=== PATIENT | female | born 1965 | race Caucasian/White ===

== ENCOUNTER 2016-10-05 18:49 | Emergency (ER) | payer MEDICAID ==
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
[2016-10-05] MEDS ORDERED: Sodium Chloride 0.9% 10 ML Syringe FLUSH PRN (19:41)
[2016-10-05] MEDS ORDERED: Sodium Chloride 0.9% 2.5 ML Syringe FLUSH PRN (19:41)
[2016-10-05] MEDS ORDERED: Sodium Chloride 0.9% 1,000 ML IV SCH (19:45)
[2016-10-05] MEDS ORDERED: Iopamidol 755 Mg/ML 100 ML Bottle IVPUSH STA (21:17)
[2016-10-05] MEDS ORDERED: Ondansetron 4 MG/2 ML SDV IVPUSH ONE (21:41)
[2016-10-05] MEDS ORDERED: HYDROmorphone 2 MG/ML Syringe IVPUSH ONE (21:42)
[2016-10-06 04:19] VITALS: BP 137/74
--- NOTE | 2016-10-06 19:49 | CT ---
EXAM DATE: 10/05/16 PATIENT'S AGE: 51 Patient: BARNEY GUIDRY Facility: [place], [place] Site . Site : [id number] Study: CT Abdomen/Pelvis [id number]/19/2017 9:19:07 PM Ordering Physician: Yosef Esteban Final Report: TECHNIQUE: IV contrast-enhanced CT of the abdomen and pelvis. INDICATION: Abdominal pain, history of Crohn`s disease. FINDINGS: The liver, spleen, pancreas, kidneys and adrenal glands appear normal. Gallbladder has been removed. Hysterectomy. Bowel appears normal without evidence for obstruction or inflammation. No free air, free fluid, or adenopathy. IMPRESSION: No cause for abdominal pain identified. Please note that all CT scans performed at this facility use dose modulation, iterative reconstruction, and/or weight based dosing when appropriate to reduce radiation dose to as low as reasonably achievable. Dictated by Nicolas Santana MD @ 10/05/2016 9:23:36 PM Dictated by: Nicolas Santana MD @ 10/05/2016 21:24:20 (Electronic Signature) Report Signed by Proxy and Original Signed Document filed in the Medical Record. [facility]
== END 2016-10-05 22:51 | disposition home or self-care (01) ==
LOC: MW.ED 18:49
DX: K50.90 Crohn's disease, unspecified, without complications (principal); M19.90 Unspecified osteoarthritis, unspecified site; F41.9 Anxiety disorder, unspecified; I10 Essential (primary) hypertension; F32.9 Major depressive disorder, single episode, unspecified; F17.210 Nicotine dependence, cigarettes, uncomplicated; Z90.49 Acquired absence of other specified parts of digestive tract; Z88.5 Allergy status to narcotic agent; Z79.899 Other long term (current) drug therapy
CPT/HCPCS: 36415; 74177; 80053; 81001; 83690; 85025; 96361; 96374; 96375; 99285; J1170; J2405; J7040; Q9967; 99284

== ENCOUNTER 2016-11-24 10:10 | Emergency (ER) | payer MEDICAID ==
[2016-11-24] MEDS ORDERED: Sodium Chloride 0.9% 2.5 ML Syringe FLUSH PRN (10:35)
[2016-11-24] MEDS ORDERED: Sodium Chloride 0.9% 1,000 ML IV ONE (10:35)
[2016-11-24] MEDS ORDERED: Sodium Chloride 0.9% 10 ML Syringe FLUSH PRN (10:35)
[2016-11-24] MEDS ORDERED: Dicyclomine 10 MG Cap PO ONE (10:35)
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
[2016-11-24] MEDS ORDERED: HYDROmorphone 2 MG/ML Syringe IVPUSH ONE (10:36)
[2016-11-24] MEDS ORDERED: Ondansetron 4 MG/2 ML SDV IVPUSH ONE (10:37)
[2016-11-24] MEDS ORDERED: HYDROmorphone 1 MG/ML Syringe IVPUSH ONE (11:49)
[2016-11-24 11:54] LABS: CHLORIDE,CL 110 mmol/L (98-110); SODIUM,NA 139 mmol/L (136-146)
[2016-11-24 17:37] VITALS: BP 178/92
== END 2016-11-24 12:33 | disposition home or self-care (01) ==
LOC: MW.ED 10:10
DX: K50.90 Crohn's disease, unspecified, without complications (principal); I10 Essential (primary) hypertension; F31.9 Bipolar disorder, unspecified; F32.9 Major depressive disorder, single episode, unspecified; F41.9 Anxiety disorder, unspecified; F17.210 Nicotine dependence, cigarettes, uncomplicated; Z88.5 Allergy status to narcotic agent; Z79.899 Other long term (current) drug therapy; Z90.49 Acquired absence of other specified parts of digestive tract
CPT/HCPCS: 36415; 80053; 82150; 83605; 83690; 85025; 96361; 96374; 96375; 96376; 99284; A9270; J1170; J2405; J7040

== ENCOUNTER 2016-11-30 18:21 | Emergency (ER) | payer MEDICAID ==
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
[2016-11-30] MEDS ORDERED: HYDROmorphone 1 MG/ML Syringe IVPUSH PRN (18:37)
[2016-11-30] MEDS ORDERED: Sodium Chloride 0.9% 2.5 ML Syringe FLUSH PRN (18:37)
[2016-11-30] MEDS ORDERED: Sodium Chloride 0.9% 10 ML Syringe FLUSH PRN (18:37)
[2016-11-30] MEDS ORDERED: Ondansetron 4 MG/2 ML SDV IVPUSH ONE (18:37)
[2016-11-30] MEDS ORDERED: Sodium Chloride 0.9% 1,000 ML IV ONE (18:37)
[2016-11-30 19:17] LABS: CHLORIDE,CL 116 mmol/L (98-110); SODIUM,NA 141 mmol/L (136-146)
[2016-11-30] MEDS ORDERED: HYDROmorphone 2 MG/ML Syringe IVPUSH ONE (19:47)
[2016-11-30] MEDS ORDERED: Dicyclomine 10 MG Cap PO ONE (19:47)
[2016-11-30 20:44] VITALS: BP 148/78
== END 2016-11-30 20:35 | disposition home or self-care (01) ==
LOC: MW.ED 18:21
DX: R10.84 Generalized abdominal pain (principal); F31.9 Bipolar disorder, unspecified; I10 Essential (primary) hypertension; M19.90 Unspecified osteoarthritis, unspecified site; F17.210 Nicotine dependence, cigarettes, uncomplicated; Z88.6 Allergy status to analgesic agent; Z88.8 Allergy status to other drugs, medicaments and biological substances; Z79.899 Other long term (current) drug therapy; Z90.49 Acquired absence of other specified parts of digestive tract; Z98.890 Other specified postprocedural states; Z87.19 Personal history of other diseases of the digestive system; Z88.5 Allergy status to narcotic agent
CPT/HCPCS: 36415; 80053; 83605; 83690; 85025; 96361; 96374; 96375; 96376; 99284; A9270; J1170; J2405; J7040

== ENCOUNTER 2016-12-03 17:05 | Emergency (ER) | payer MEDICAID ==
[2016-12-03] MEDS ORDERED: Sodium Chloride 0.9% 2.5 ML Syringe FLUSH PRN (17:35)
[2016-12-03] MEDS ORDERED: Sodium Chloride 0.9% 10 ML Syringe FLUSH PRN (17:35)
[2016-12-03] MEDS ORDERED: Sodium Chloride 0.9% 1,000 ML IV ONE (17:35)
[2016-12-03] MEDS ORDERED: LORazepam 2 MG/ML MDV IVPUSH ONE ×2 (17:39→17:42)
[2016-12-03] MEDS ORDERED: Acetaminophen/HYDROcodone 325-7.5 MG Tab PO ONE (17:40)
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
[2016-12-03 19:38] VITALS: BP 150/95
== END 2016-12-03 19:10 | disposition home or self-care (01) ==
LOC: MW.ED 17:05
DX: R10.84 Generalized abdominal pain (principal); K50.90 Crohn's disease, unspecified, without complications; I10 Essential (primary) hypertension; M19.90 Unspecified osteoarthritis, unspecified site; F41.9 Anxiety disorder, unspecified; F31.9 Bipolar disorder, unspecified; Z90.49 Acquired absence of other specified parts of digestive tract; Z79.899 Other long term (current) drug therapy; Z88.1 Allergy status to other antibiotic agents; Z88.5 Allergy status to narcotic agent; Z88.6 Allergy status to analgesic agent
CPT/HCPCS: 80053; 83690; 85025; 86140; 96361; 96374; 99284; A9270; J2060; J7040

== ENCOUNTER 2016-12-18 19:21 | Emergency (ER) | payer MEDICAID ==
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
[2016-12-18] MEDS ORDERED: Sodium Chloride 0.9% 1,000 ML IV ONE (20:21)
[2016-12-18 22:55] VITALS: BP 130/70
== END 2016-12-18 22:05 | disposition home or self-care (01) ==
LOC: MW.ED 19:21
DX: R10.84 Generalized abdominal pain (principal); E86.0 Dehydration; I10 Essential (primary) hypertension; F41.9 Anxiety disorder, unspecified; F31.9 Bipolar disorder, unspecified; Z90.49 Acquired absence of other specified parts of digestive tract; M06.9 Rheumatoid arthritis, unspecified; Z79.899 Other long term (current) drug therapy; Z88.5 Allergy status to narcotic agent; Z88.1 Allergy status to other antibiotic agents; Z88.6 Allergy status to analgesic agent; F17.210 Nicotine dependence, cigarettes, uncomplicated; M19.90 Unspecified osteoarthritis, unspecified site
CPT/HCPCS: 80053; 82150; 83690; 85025; 96360; 96361; 99284; J7040; 99282

== ENCOUNTER 2017-02-15 14:29 | Emergency (ER) | payer MEDICAID ==
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
[2017-02-15] MEDS ORDERED: Sodium Chloride 0.9% 1,000 ML IV ONE (14:49)
[2017-02-15] MEDS ORDERED: Acetaminophen 500 MG Tab PO ONE (14:50)
[2017-02-15] MEDS ORDERED: Ondansetron 4 MG Tab.DIS PO ONE (14:52)
[2017-02-15] MEDS ORDERED: HYDROmorphone 1 MG/ML Syringe IV ONE (14:53)
[2017-02-15] MEDS ORDERED: Iopamidol 755 MG/ML 500 ML Multipack Bottle IVPUSH STA (16:37)
[2017-02-15] MEDS ORDERED: Dicyclomine 10 MG Cap PO ONE (17:09)
[2017-02-15] MEDS ORDERED: Sodium Chloride 0.9% 1,000 ML IV STA (17:13)
[2017-02-15] MEDS ORDERED: Ciprofloxacin 500 MG Tab PO ONE (19:04)
[2017-02-15] MEDS ORDERED: metroNIDAZOLE 250 MG Tab PO ONE (19:04)
[2017-02-15] MEDS ORDERED: Acetaminophen/HYDROcodone 325-5 MG Tab PO ONE (19:05)
[2017-02-15 20:13] VITALS: BP 145/88
--- NOTE | 2017-02-16 13:58 | CR ---
EXAM DATE: 02/15/17 PATIENT'S AGE: 51 Patient: BARNEY GUIDRY [facility] Facility: [place], [place] Site . Site : 1965 Study: XRay Extremity Left [id number] ankle-02/15/2017 5:25:46 PM Ordering Physician: Doctor Whitt Final Report: INDICATION: Ankle pain. Technique: Two views of the left ankle. Findings: No acute fracture or dislocation. The mortise is uniform. Soft tissues are intact. Midfoot arthrodesis without complication. Osteophytes on the dorsum of the midfoot. Impression: 1. No acute abnormality of the left ankle. 2. Postoperative and degenerative changes in the midfoot. Dictated by Sergei Farnsworth MD @ Feb 15 2017 5:53PM (Electronic Signature) Report Signed by Proxy. MALDONADO
--- NOTE | 2017-02-16 13:59 | CT ---
EXAM DATE: 02/15/17 PATIENT'S AGE: 51 Patient: BARNEY GUIDRY [place] Facility: [place], [place] Site . Site : 1965 Study: CT Abdomen/Pelvis [id number]/30/2017 5:27:03 PM Ordering Physician: Doctor Whitt Final Report: INDICATION: Abdominal pain. Crohn`s disease. TECHNIQUE: CT abdomen and pelvis acquired with IV contrast. COMPARISON: CT 10/05/2016. FINDINGS: Lower chest: Unremarkable. Liver: Tiny low-density lesion in the left hepatic lobe is stable. No new hepatic abnormality. Low attenuation of the falciform ligament likely represents focal fatty infiltration. Spleen: Unremarkable. Pancreas: Unremarkable. Gallbladder and bile ducts: Dilatation of the common duct and cystic duct remnant is unchanged and likely secondary to reservoir effect of cholecystectomy. Kidneys: A tiny low-density lesion in the posterior mid left kidney is too small to characterize. No other renal lesion and no hydronephrosis. Adrenal glands: Unremarkable. GI tract: There is wall thickening of the proximal and mid ascending colon with mild pericolonic inflammatory stranding. The cecum and terminal ileum appear normal. No acute abnormality in the remainder of the colon or small bowel. Vascular structures: No sign of aneurysm. Lymph nodes: Unremarkable. Miscellaneous: No ascites. No free air. Pelvic Organs: The urinary bladder is normal. Uterus is absent. Bones: No acute abnormality. No suspicious bone lesion. Healed fracture left lateral rib 9. Healing fracture of the right lateral rib 9 and likely healed fracture of right lateral rib 8. IMPRESSION: Wall thickening of the proximal and mid ascending colon with mild pericolonic inflammatory stranding. Findings are consistent with mild focal colitis consistent with provided history of Crohn`s disease. Dictated by Edd Cuevas MD @ 02/15/2017 6:21:19 PM Dictated by: Edd Cuevas MD @ 02/15/2017 18:21:27 (Electronic Signature) Report Signed by Proxy. MALDONADO
== END 2017-02-15 19:46 | disposition home or self-care (01) ==
LOC: MW.ED 14:29
DX: K52.9 Noninfective gastroenteritis and colitis, unspecified (principal); K50.90 Crohn's disease, unspecified, without complications; I10 Essential (primary) hypertension; F17.210 Nicotine dependence, cigarettes, uncomplicated; Z88.6 Allergy status to analgesic agent; Z88.1 Allergy status to other antibiotic agents; Z88.5 Allergy status to narcotic agent; Z79.899 Other long term (current) drug therapy; Z90.49 Acquired absence of other specified parts of digestive tract
CPT/HCPCS: 36415; 73600; 74177; 80053; 82150; 83690; 85025; 96361; 96374; 99284; A9270; J1170; J7040; Q9967; 99283

== ENCOUNTER 2017-03-06 17:22 | Emergency (ER) | payer MEDICAID ==
[2017-03-06] MEDS ORDERED: Sodium Chloride 0.9% 1,000 ML IV ONE (18:31)
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
[2017-03-06 19:32] LABS: CHLORIDE,CL 116 mmol/L (98-110); SODIUM,NA 143 mmol/L (136-146)
[2017-03-06 20:06] VITALS: BP 177/114
--- NOTE | 2017-03-09 11:18 | CR ---
EXAM DATE: 03/06/17 PATIENT'S AGE: 51 Patient: BARNEY GUIDRY [facility] Facility: [place], [place] Site . Site : 1965 Study: XRay Extremity foot [id number]/18/2017 6:35:27 PM Ordering Physician: Doctor Whitt Final Report: INDICATION: Foot pain TECHNIQUE: Left foot, two views COMPARISON: 07/23/2016. FINDINGS: Postoperative changes in the left foot with screw fixation of the 2nd and 3rd MTT joints. Dorsal spurring on lateral view with no adjacent soft tissue swelling. No hardware complication or fracture. IMPRESSION: 1. No acute left foot abnormality or significant change from prior study dated 07/23/2016. Postoperative fusion of 2nd and 3rd MTT joints. Dictated by John Hardin MD @ 03/06/2017 7:24:06 PM Dictated by: John Hardin MD @ 03/06/2017 19:24:14 (Electronic Signature) Report Signed by Proxy. [facility] DIVISIONValeriy
== END 2017-03-06 20:00 | disposition home or self-care (01) ==
LOC: MW.ED 17:22
DX: S99.922A Unspecified injury of left foot, initial encounter (principal); K50.90 Crohn's disease, unspecified, without complications; I10 Essential (primary) hypertension; M06.9 Rheumatoid arthritis, unspecified; F31.9 Bipolar disorder, unspecified; F17.210 Nicotine dependence, cigarettes, uncomplicated; Z90.49 Acquired absence of other specified parts of digestive tract; Z79.899 Other long term (current) drug therapy; Z88.1 Allergy status to other antibiotic agents; Z88.5 Allergy status to narcotic agent; X58.XXXA Exposure to other specified factors, initial encounter
CPT/HCPCS: 73620; 80053; 85025; 96360; 99284; J7040; 99283

== ENCOUNTER 2017-03-25 20:46 | Emergency (ER) | payer MEDICAID ==
[2017-03-25] MEDS ORDERED: Sodium Chloride 0.9% 1,000 ML IV ONE (21:28)
[2017-03-25] MEDS ORDERED: HYDROmorphone 1 MG/ML Syringe IVPUSH ONE (21:28)
[2017-03-25] MEDS ORDERED: Ondansetron 4 MG/2 ML SDV IVPUSH ONE (21:28)
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
[2017-03-25] MEDS ORDERED: Iopamidol 755 MG/ML 500 ML Multipack Bottle IVPUSH STA (22:53)
[2017-03-26 00:40] VITALS: BP 150/85
--- NOTE | 2017-03-26 17:14 | CT ---
EXAM DATE: 03/25/17 PATIENT'S AGE: 51 Patient: BARNEY GUIDRY SYDNEE Facility: [place], [place] Site . Site : 1965 Study: CT Abdomen/Pelvis W CONT [id number]/6/2017 10:56:48 PM Ordering Physician: Doctor Whitt Final Report: INDICATION: LEFT SIDED ABDOMINAL PAIN AND BLOATING TECHNIQUE: CT abdomen and pelvis acquired with IV contrast. COMPARISON: February 15, 2017 FINDINGS: Lower chest: Nonspecific noncalcified 4 mm pulmonary nodule within the imaged right middle lobe. . Liver: Unremarkable. Spleen: Unremarkable. Pancreas: Unremarkable. Gallbladder and bile ducts: Cholecystectomy with reservoir effect. Kidneys: Stable cortical scarring and atrophy of the left kidney with respect to the right. . Adrenal glands: Unremarkable. GI tract: Focal narrowing near the ascending colon and hepatic flexure. Colonic diverticulosis with no evidence of acute diverticulitis. Appendix is not visualized. Vascular structures: Atherosclerotic disease. No sign of aneurysm. Lymph nodes: Unremarkable. Miscellaneous: Unremarkable. No free air or significant free fluid. Pelvic Organs: Hysterectomy changes. Bones: Degenerative changes. Remote 8th and 9th right rib fractures. Remote 9th left rib fracture. IMPRESSION: 1. Focal narrowing near the ascending colon and hepatic flexure. This could represent a focal area of inflammatory/ infectious etiology. However, an underlying lesion cannot be excluded. Recommend further evaluation with colonoscopy after symptoms have resolved and medical treatment completed. 2. Nonspecific noncalcified 4 mm pulmonary nodule within the anterior middle lobe. Recommend comparison with any prior cross-sectional imaging of the chest to evaluate for stability/ chronicity and/or follow-up per Fleischner criteria. Dictated by Eliot Grimes MD @ 03/25/2017 11:42:40 PM Dictated by: Eliot Grimes MD @ 03/25/2017 23:43:46 (Electronic Signature) Report Signed by Proxy. [facility] CENTERValeriy
== END 2017-03-26 00:11 | disposition home or self-care (01) ==
LOC: MW.ED 20:46
DX: K50.919 Crohn's disease, unspecified, with unspecified complications (principal); I10 Essential (primary) hypertension; F17.210 Nicotine dependence, cigarettes, uncomplicated; Z88.6 Allergy status to analgesic agent; Z88.1 Allergy status to other antibiotic agents; Z88.5 Allergy status to narcotic agent; Z79.899 Other long term (current) drug therapy; Z90.49 Acquired absence of other specified parts of digestive tract
CPT/HCPCS: 74177; 80053; 81001; 82150; 83690; 85025; 96361; 96374; 96375; 99284; J1170; J2405; J7040; Q9967; 99283

== ENCOUNTER 2017-04-07 22:34 | Emergency (ER) | payer MEDICAID ==
[2017-04-07] MEDS ORDERED: Sodium Chloride 0.9% 10 ML Syringe FLUSH PRN (22:41)
[2017-04-07] MEDS ORDERED: Sodium Chloride 0.9% 2.5 ML Syringe FLUSH PRN (22:41)
[2017-04-07] MEDS ORDERED: Ondansetron 4 MG/2 ML SDV IVPUSH ONE (22:41)
[2017-04-07] MEDS ORDERED: Sodium Chloride 0.9% 1,000 ML IV ONE (22:41)
[2017-04-07] MEDS ORDERED: Ketorolac 30 MG/ML SDV IVPUSH ONE (22:41)
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
[2017-04-08 00:40] VITALS: BP 158/97
--- NOTE | 2017-04-08 14:01 | CR ---
EXAM DATE: 04/07/17 PATIENT'S AGE: 52 Patient: BARNEY GUIDRY SYDNEE Facility: [place], [place] Site . Site : 1965 Study: XRay Chest [id number]/20/2017 12:11:58 AM Ordering Physician: Hai Esteban Final Report: INDICATION: Chest Pain TECHNIQUE: Chest radiograph 2 views COMPARISON: None FINDINGS: Cardiovascular and mediastinum: The cardiac silhouette is normal in appearance and size. Mediastinum is within normal limits. Lungs and pleural spaces: Both lungs are unremarkable in appearance. No sign of pleural effusion. No pneumothorax is seen. Bones and soft tissues: No significant findings. IMPRESSION: 1. No acute cardiopulmonary disease seen. Dictated by: James Duckworth MD @ 04/08/2017 00:19:35 (Electronic Signature) Report Signed by Proxy. [facility] CENTERValeriy
--- NOTE | 2017-04-08 14:02 | CT ---
EXAM DATE: 04/07/17 PATIENT'S AGE: 52 Patient: BARNEY RANDHAWA Facility: [place], [place] Site . Site : 1965 Study: CT Abdomen/Pelvis [id number] 12:13:32 AM Ordering Physician: TREY Final Report: INDICATION: Generalized abdominal pain TECHNIQUE: CT abdomen and pelvis without i.v. contrast. Coronal and sagittal reformats were obtained. COMPARISON: 03/25/2017 FINDINGS: Lower chest: There is a 5 mm stable nodule in the lingula. The previously noted 4 mm nodule in the right middle lobe is not included. Liver: A small, ill-defined hypodensity is present in the left lobe of the liver , abutting the fissure for the ligamentum teres, which is most likely due to focal fatty infiltration. Spleen: Unremarkable. Pancreas: Unremarkable. Gallbladder and bile ducts: The patient is status post cholecystectomy. Kidneys: Unremarkable. No kidney or ureteral stones and no hydronephrosis seen. Adrenal glands: Unremarkable. GI tract: Unremarkable. The appendix cannot be identified but there are no inflammatory changes noted in the right lower quadrant. Vascular: Unremarkable. Lymph nodes: Unremarkable. Miscellaneous: Unremarkable. No pneumoperitoneum is seen. No significant ascites is noted. Pelvic Organs: Unremarkable. Bones: Unremarkable for age. IMPRESSION: 1. Small subcentimeter pulmonary nodules are present in the lung bases. Previous recommendation for followup is reiterated. Dictated by James Duckworth MD @ 04/08/2017 12:27:22 AM Dictated by: James Duckworth MD @ 04/08/2017 00:27:27 (Electronic Signature) Report Signed by Proxy. [facility]
== END 2017-04-08 01:20 | disposition home or self-care (01) ==
LOC: MW.ED 22:34
DX: K50.919 Crohn's disease, unspecified, with unspecified complications (principal); G89.29 Other chronic pain; M06.9 Rheumatoid arthritis, unspecified; F17.210 Nicotine dependence, cigarettes, uncomplicated; I10 Essential (primary) hypertension; M19.90 Unspecified osteoarthritis, unspecified site; F31.9 Bipolar disorder, unspecified; Z90.49 Acquired absence of other specified parts of digestive tract; Z79.899 Other long term (current) drug therapy; Z88.1 Allergy status to other antibiotic agents; Z88.5 Allergy status to narcotic agent; Z88.6 Allergy status to analgesic agent
CPT/HCPCS: 36415; 71020; 74176; 80053; 83605; 83690; 85025; 85610; 93005; 96361; 96374; 99285; J2405; J7040; 99283

== ENCOUNTER 2017-05-05 23:43 | Emergency (ER) | payer MEDICAID ==
[2017-05-06] MEDS ORDERED: Sodium Chloride 0.9% 1,000 ML IV ONE (01:03)
[2017-05-06] MEDS ORDERED: Labetalol 5 MG/ML 5 ML Syringe IVPUSH ONE (01:04)
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
[2017-05-06] MEDS ORDERED: Labetalol 100 MG/20 ML MDV ONE (01:21)
[2017-05-06] MEDS ORDERED: Lisinopril 10 MG Tab PO ONE (02:19)
[2017-05-06 04:53] VITALS: BP 158/84
--- NOTE | 2017-05-06 13:21 | CR ---
EXAM DATE: 05/05/17 PATIENT'S AGE: 52 Patient: BARNEY GUIDRY SYDNEE Facility: [place], [place] Site . Site : 1965 Study: XRay Chest [id number] 2:15:49 AM Ordering Physician: Lisa Pierre Final Report: INDICATION: FATIGUE TECHNIQUE: Chest 1 view. COMPARISON: 04/07/17 FINDINGS: Cardiovascular and mediastinum: Heart size and vasculature are normal in caliber and appearance. Mediastinum is within normal limits. Lungs and pleural space: Lungs are clear. No sign of infiltrate or mass. No sign of pleural effusion. No pneumothorax. Bones and soft tissues: No significant findings. IMPRESSION: Unremarkable chest. Dictated by: Timothy Leblanc MD @ 05/06/2017 02:17:05 (Electronic Signature) Report Signed by Proxy. [facility]
== END 2017-05-06 02:46 ==
LOC: MW.ED 23:43
DX: I16.0 Hypertensive urgency (principal); F31.9 Bipolar disorder, unspecified; F17.210 Nicotine dependence, cigarettes, uncomplicated; Z90.49 Acquired absence of other specified parts of digestive tract; Z79.899 Other long term (current) drug therapy; Z88.1 Allergy status to other antibiotic agents; Z88.5 Allergy status to narcotic agent; Z88.6 Allergy status to analgesic agent
CPT/HCPCS: 71010; 80053; 84484; 85025; 93005; 96360; 99284; J7040; 99283

== ENCOUNTER 2017-05-16 16:52 | Emergency (ER) | payer MEDICAID ==
[2017-05-16 17:06] VITALS: BP 183/111
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
== END 2017-05-16 18:21 | disposition left against medical advice (07) ==
LOC: MW.ED 16:52
DX: S63.284A Dislocation of proximal interphalangeal joint of right ring finger, initial encounter (principal); I10 Essential (primary) hypertension; F17.210 Nicotine dependence, cigarettes, uncomplicated; Z88.6 Allergy status to analgesic agent; Z88.1 Allergy status to other antibiotic agents; Z88.5 Allergy status to narcotic agent; Z79.899 Other long term (current) drug therapy; V29.9XXA Motorcycle rider (driver) (passenger) injured in unspecified traffic accident, initial encounter
CPT/HCPCS: 73120-26-RT; 73120-RT; 73140-26-F9; 73140-F9; 73562-26-RT; 73562-LT; 73562-RT; 99282; 99283

== ENCOUNTER 2017-05-16 19:23 | Emergency (ER) | payer MEDICAID ==
[2017-05-16 19:40] VITALS: BP 169/111
[2017-05-16] MEDS ORDERED: Diphtheria,Pertussis(Acell),Tetanus Vaccine 0.5 ML Syringe IM ONE (19:44)
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
--- NOTE | 2017-05-18 13:50 | CR ---
EXAM DATE: 05/16/17 PATIENT'S AGE: 52 Patient: BARNEY GUIDRY SYDNEE Facility: [place], [place] Site . Site : 1965 Study: XRay Extremity Right hand [id number] 5:24:37 PM Ordering Physician: Doctor Whitt Final Report: HISTORY: Pain and swelling after injury. Findings: Two views of the right hand are provided. There is partial dislocation of the PIP joint of the 4th finger. The middle phalanx is subluxed ulnarly approximately 50 percent of the articular surface. There is probably a subtle fracture of the proximal portion of the middle phalanx along the palmar aspect as noted on the lateral view only. The majority of the proximal articular surface of the bone is intact however. No other abnormality is noted. Dictated by Cristi Sevilla MD @ May 16 2017 5:30PM (Electronic Signature) Report Signed by Proxy. MALDONADO
--- NOTE | 2017-05-18 13:55 | CR ---
EXAM DATE: 05/16/17 PATIENT'S AGE: 52 Patient: BARNEY GUIDRY [facility] Facility: [place], [place] Site . Site : 1965 Study: XRay Knee [id number]/28/2017 5:42:14 PM Ordering Physician: Doctor Whitt Final Report: HISTORY: Knee pain. Findings: Three views of the right knee are provided. Postoperative changes of ACL reconstruction are noted. Mild osteoarthritic change is noted of the medial and patellofemoral compartments. No findings for fracture or dislocation. Dictated by Cristi Sevilla MD @ May 16 2017 5:55PM (Electronic Signature) MALDONADO
--- NOTE | 2017-05-18 13:56 | CR ---
EXAM DATE: 05/16/17 PATIENT'S AGE: 52 Patient: BARNEY GUIDRY SYDNEE Facility: [place], [place] Site . Site : 1965 Study: XRay Extremity Right hand/5th digit [id number]/28/2017 8:03:38 PM Ordering Physician: Lisa Pierre Final Report: INDICATION: Dislocation, post reduction TECHNIQUE: Three views right hand 7:55 p.m. COMPARISON: 5:15 p.m. FINDINGS: Bones: Alignment is normal. No fractures or bone lesions. Joint spaces: Unremarkable. Soft tissues: Mild soft tissue edema adjacent to the PIP joint. IMPRESSION: Anatomical alignment at the PIP joint 4th digit. No fractures. Mild soft tissue edema adjacent to the PIP joint. Dictated by Timothy Leblanc MD @ 05/16/2017 8:25:06 PM Dictated by: Timothy Leblanc MD @ 05/16/2017 20:25:16 (Electronic Signature) Report Signed by Proxy. [facility] CENTERValeriy
== END 2017-05-16 20:30 | disposition home or self-care (01) ==
LOC: MW.ED 19:23
DX: S63.235A Subluxation of proximal interphalangeal joint of left ring finger, initial encounter (principal); Z23 Encounter for immunization; Z76.5 Malingerer [conscious simulation]; Z88.5 Allergy status to narcotic agent; Z88.1 Allergy status to other antibiotic agents; Z79.899 Other long term (current) drug therapy; I10 Essential (primary) hypertension; F17.210 Nicotine dependence, cigarettes, uncomplicated; V29.9XXA Motorcycle rider (driver) (passenger) injured in unspecified traffic accident, initial encounter; Z88.6 Allergy status to analgesic agent; S63.284A Dislocation of proximal interphalangeal joint of right ring finger, initial encounter
CPT/HCPCS: 26770; 73120-26-RT; 73120-RT; 73140-26-F9; 73140-F9; 73562-26-RT; 73562-LT; 73562-RT; 90471; 90715; 99282; 99283; 99283-25

== ENCOUNTER 2017-06-22 21:11 | Emergency (ER) | payer MEDICAID, OTHER ==
[2017-06-22] MEDS ORDERED: Sodium Chloride 0.9% 2.5 ML Syringe FLUSH PRN (22:36)
[2017-06-22] MEDS ORDERED: Sodium Chloride 0.9% 10 ML Syringe FLUSH PRN (22:36)
[2017-06-22] MEDS ORDERED: Ondansetron 4 MG/2 ML SDV IVPUSH ONE (22:36)
[2017-06-22] MEDS ORDERED: Morphine 2 MG/ML Syringe IVPUSH ONE (22:36)
[2017-06-22] MEDS ORDERED: Sodium Chloride 0.9% 1,000 ML IV ONE (22:36)
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
[2017-06-23 03:40] VITALS: BP 162/98
--- NOTE | 2017-06-23 11:15 | CR ---
EXAM DATE: 06/22/17 PATIENT'S AGE: 52 Patient: BARNEY GUIDRY SYDNEE Facility: [place], [place] Site . Site : 1965 Study: XRay Chest [id number] 12:06:59 AM Ordering Physician: Tony Street Final Report: INDICATION: Chest Pain, shortness of breath TECHNIQUE: Chest radiograph 1 view COMPARISON: 05/06/2017 FINDINGS: Mediastinum: The heart silhouette is normal in size and morphology. The mediastinum is normal in appearance. Lungs: Bilateral pulmonary hyperinflation and lucency noted, suggestive of moderate pulmonary emphysema. No sign of pleural effusion seen. No pneumothorax is identified. Bones: Unremarkable for age. IMPRESSION: 1. Bilateral pulmonary hyperinflation and lucency noted, suggestive of moderate pulmonary emphysema. Dictated by James Duckworth MD @ 06/23/2017 12:09:55 AM Dictated by: James Duckworth MD @ 06/23/2017 00:10:02 (Electronic Signature) Report Signed by Proxy. [facility]OSPITALValeriy
== END 2017-06-23 00:35 | disposition home or self-care (01) ==
LOC: MW.ED 21:11
DX: J10.1 Influenza due to other identified influenza virus with other respiratory manifestations (principal); I10 Essential (primary) hypertension; F17.210 Nicotine dependence, cigarettes, uncomplicated; Z88.6 Allergy status to analgesic agent; Z88.1 Allergy status to other antibiotic agents; Z88.5 Allergy status to narcotic agent; Z79.899 Other long term (current) drug therapy
CPT/HCPCS: 36415; 71010; 80053; 82150; 83690; 85025; 86140; 87804; 96361; 96374; 96375; 99284; J2270; J2405; J7040

== ENCOUNTER 2017-07-01 01:16 | Emergency (ER) | payer MEDICAID ==
[2017-07-01] MEDS ORDERED: Sulfamethoxazole/Trimethoprim 800-160 MG Tab PO ONE (02:11)
[2017-07-01] MEDS ORDERED: Acetaminophen/HYDROcodone 325-5 MG Tab PO ONE (02:11)
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
[2017-07-01 02:44] VITALS: BP 155/105
== END 2017-07-01 02:30 | disposition home or self-care (01) ==
LOC: MW.ED 01:16
DX: L03.211 Cellulitis of face (principal); F17.210 Nicotine dependence, cigarettes, uncomplicated; I10 Essential (primary) hypertension; Z88.1 Allergy status to other antibiotic agents; Z88.5 Allergy status to narcotic agent; Z79.899 Other long term (current) drug therapy; Z88.6 Allergy status to analgesic agent
CPT/HCPCS: 99283; A9270

== ENCOUNTER 2017-08-16 14:48 | Emergency (ER) | payer MEDICAID ==
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
[2017-08-16 15:00] VITALS: BP 159/97
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
== END 2017-08-16 16:27 | disposition home or self-care (01) ==
LOC: MW.ED 14:48
DX: S49.91XA Unspecified injury of right shoulder and upper arm, initial encounter (principal); F17.210 Nicotine dependence, cigarettes, uncomplicated; Z88.1 Allergy status to other antibiotic agents; Z88.5 Allergy status to narcotic agent; Z79.899 Other long term (current) drug therapy; X58.XXXA Exposure to other specified factors, initial encounter
CPT/HCPCS: 73030; 99283; A4566

== ENCOUNTER 2017-11-18 20:07 | Emergency (ER) | payer MEDICAID ==
[2017-11-18] MEDS ORDERED: Sodium Chloride 0.9% 1,000 ML IV ONE (20:33)
[2017-11-18] MEDS ORDERED: Ondansetron 4 MG/2 ML SDV IVPUSH ONE (20:40)
[2017-11-18] MEDS ORDERED: Morphine 4 MG/ML Syringe IVPUSH ONE (20:40)
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
[2017-11-18 21:32] LABS: CHLORIDE,CL 109 mmol/L (98-107); SODIUM,NA 144 mmol/L (136-145)
[2017-11-18] MEDS ORDERED: Potassium Chloride 20 MEQ Tab.ER PO STA (21:50)
[2017-11-18 23:18] VITALS: BP 135/91
--- NOTE | 2017-11-19 12:58 | CT ---
EXAM DATE: 11/18/17 PATIENT'S AGE: 52 Patient: BARNEY GUIDRY [facility] Facility: [place], [place] Site . Site : 1965 Study: CT Abdomen [id number]/[id number] 10:18:33 PM Ordering Physician: Doctor Whitt Final Report: INDICATION: Bloody stools, history of Crohn`s disease TECHNIQUE: CT abdomen and pelvis without contrast. COMPARISON: April 07, 2017 FINDINGS: Lower chest: 0.8 cm pulmonary nodule in the lingula, stable since April 08, 2017. Liver: Unremarkable. Spleen: Unremarkable. Pancreas: Unremarkable. Gallbladder and bile ducts: Status post cholecystectomy. Adrenal glands: Unremarkable. Kidneys: Unremarkable. No kidney or ureteral stones and no hydronephrosis. GI tract: Minimal colonic diverticulosis. No bowel wall thickening or mesenteric fat stranding. No free air or free fluid. Vascular structures: Unremarkable. Lymph nodes: Unremarkable. Miscellaneous: Unremarkable. No free air or significant free fluid. Pelvic Organs: Status post hysterectomy. Bones: Unremarkable for age. IMPRESSION: 1. No evidence for recurrent Crohn`s disease. 2. Minimal colonic diverticulosis. 3. Pulmonary nodule in the lingula, stable since April 08, 2017. Followup per Fleischner society guidelines recommended, as listed below. 4. Status post hysterectomy and cholecystectomy. FLEISCHNER SOCIETY GUIDELINES - SOLID NODULES: SINGLE LOW RISK - nodule less than 6 mm: No routine follow-up. - nodule 6-8 mm: CT at 6-12 months, then consider CT at 18-24 months. - nodule greater than 8 mm: Consider CT at 3 months, PET/CT or tissue sampling. SINGLE HIGH RISK - nodule less than 6 mm: Optional CT at 12 months. - nodule 6-8 mm: CT at 6-12 months, then CT at 18-24 months. - nodule greater than 8 mm: Consider CT at 3 months, PET/CT or tissue sampling. MULTIPLE LOW RISK - nodule less than 6 mm: No routine follow-up. - nodule 6-8 mm: CT at 3-6 months, then consider CT at 18-24 months. - nodule greater than 8 mm: CT at 3-6 months, then consider CT at 18-24 months. MULTIPLE HIGH RISK - nodule less than 6 mm: Optional CT at 12 months. - nodule 6-8 mm: CT at 3-6 months, then at 18-24 months. - nodule greater than 8 mm: CT at 3-6 months, then at 18-24 months. Please note that all CT scans at this facility use dose modulation, iterative reconstruction, and/or weight-based dosing when appropriate to reduce radiation dose to as low as reasonably achievable. Dictated by Beulah Mercado MD @ Nov 18 2017 10:47PM (Electronic Signature) Report Signed by Proxy. MTDD
== END 2017-11-18 23:17 | disposition home or self-care (01) ==
LOC: MW.ED 20:07
DX: K52.9 Noninfective gastroenteritis and colitis, unspecified (principal); I10 Essential (primary) hypertension; E87.6 Hypokalemia; F17.210 Nicotine dependence, cigarettes, uncomplicated
CPT/HCPCS: 36415; 74176; 80053; 85025; 96361; 96374; 96375; 99285; A9270; J2270; J2405; J7040

== ENCOUNTER 2017-12-04 01:14 | Emergency (ER) | payer MEDICAID ==
[2017-12-04] MEDS ORDERED: Sodium Chloride 0.9% 1,000 ML IV ONE (01:35)
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
[2017-12-04] MEDS ORDERED: Ondansetron 4 MG/2 ML SDV IVPUSH ONE (03:12)
[2017-12-04] MEDS ORDERED: methylPREDNISolone Sodium Succinate 125 MG/2 ML SDV IVPUSH ONE (03:12)
[2017-12-04] MEDS ORDERED: Acetaminophen/HYDROcodone 325-5 MG Tab PO ONE (03:42)
[2017-12-04 03:52] VITALS: BP 166/102
== END 2017-12-04 03:55 | disposition home or self-care (01) ==
LOC: MW.ED 01:14
DX: K50.90 Crohn's disease, unspecified, without complications (principal); I10 Essential (primary) hypertension; Z88.6 Allergy status to analgesic agent; Z88.1 Allergy status to other antibiotic agents; Z88.5 Allergy status to narcotic agent; Z79.899 Other long term (current) drug therapy
CPT/HCPCS: 36415; 80053; 83690; 85025; 86140; 96360; 96361; 96372; 99284; A9270; J2405; J2930; J7040; 99283

== ENCOUNTER 2018-02-02 20:33 | Emergency (ER) | payer MEDICAID ==
[2018-02-02] MEDS ORDERED: HYDROmorphone 1 MG/ML Syringe IM ONE (21:13)
[2018-02-02] MEDS ORDERED: Sodium Chloride 0.9% 1,000 ML IV ONE ×2 (21:13→21:54)
[2018-02-02] MEDS ORDERED: Ondansetron 4 MG/2 ML SDV IVPUSH ONE (21:14)
[2018-02-02] MEDS ORDERED: Hyoscyamine 0.125 MG/ML Bottle PO ONE (21:16)
[2018-02-02] MEDS ORDERED: cefTRIAXone 1 GM in Premix Bag 1 BAG IV ONE (21:20)
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
[2018-02-02] MEDS ORDERED: HYDROmorphone 1 MG/ML Syringe IVPUSH ONE (21:53)
[2018-02-02 22:46] VITALS: BP 141/92
--- NOTE | 2018-02-03 10:15 | CR ---
EXAM DATE: 02/02/18 PATIENT'S AGE: 52 Patient: BARNEY GUIDRY SYDNEE Facility: [place], [place] Site . Site : 1965 Study: XRay Abdomen [id number]/17/2018 10:38:33 PM Ordering Physician: Doctor Whitt Final Report: INDICATION: Abdominal pain, history of Crohn`s disease. TECHNIQUE: Abdominal radiograph 3 views COMPARISON: 11/18/2017 FINDINGS: Bowel: The bowel gas pattern is normal without evidence of bowel obstruction. Soft tissue: No evidence of pneumoperitoneum present. No suspicious calcifications noted. Previous cholecystectomy noted. Bones: Unremarkable for age. IMPRESSION: 1. Unremarkable appearance of the visualized abdomen. Dictated by: James Duckworth MD @ 02/02/2018 22:39:52 (Electronic Signature) Report Signed by Proxy. MALDONADO
== END 2018-02-02 23:13 | disposition home or self-care (01) ==
LOC: MW.ED 20:33
DX: K50.90 Crohn's disease, unspecified, without complications (principal); F17.210 Nicotine dependence, cigarettes, uncomplicated; I10 Essential (primary) hypertension; Z79.899 Other long term (current) drug therapy; Z88.6 Allergy status to analgesic agent; Z88.1 Allergy status to other antibiotic agents; Z88.8 Allergy status to other drugs, medicaments and biological substances
CPT/HCPCS: 36415; 74019; 80053; 85025; 96365; 96375; 99284; A9270; J0696; J1170; J2405; J7040

== ENCOUNTER 2018-03-12 08:14 | Emergency (ER) | payer MEDICARE, MEDICAID ==
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
[2018-03-12] MEDS ORDERED: Acetaminophen/Codeine 300-30 MG Tab PO ONE (08:51)
[2018-03-12 10:12] VITALS: BP 142/97
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
== END 2018-03-12 10:20 | disposition home or self-care (01) ==
LOC: MW.ED 08:14
DX: S30.0XXA Contusion of lower back and pelvis, initial encounter (principal); S40.011A Contusion of right shoulder, initial encounter; S60.212A Contusion of left wrist, initial encounter; S60.211A Contusion of right wrist, initial encounter; I10 Essential (primary) hypertension; K50.90 Crohn's disease, unspecified, without complications; V29.9XXA Motorcycle rider (driver) (passenger) injured in unspecified traffic accident, initial encounter
CPT/HCPCS: 72220; 73030; 73100; 73502; 96372; 99283; A9270; J2360

== ENCOUNTER 2018-08-13 17:45 | Emergency (ER) | payer MEDICARE ==
[2018-08-13] MEDS ORDERED: Ondansetron 4 MG/2 ML SDV IVPUSH ONE (17:47)
[2018-08-13] MEDS ORDERED: Sodium Chloride 0.9% 1,000 ML IV ONE ×2 (17:47→19:24)
[2018-08-13] MEDS ORDERED: Morphine 4 MG/ML Syringe IVPUSH ONE ×2 (18:03→18:44)
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
[2018-08-13] MEDS ORDERED: LORazepam 2 MG/ML SDV IVPUSH ONE (18:04)
--- NOTE | 2018-08-13 20:01 | CT ---
INDICATION: Abdominal pain. History of Crohn`s disease. COMPARISON: 07/07/2018 and 05/06/2018 TECHNIQUE: CT examination of the abdomen and pelvis was performed without contrast enhancement using 3 mm thick axial sections from the lung bases through the pubic symphysis. Oral contrast was not administered. Please note that all CT scans at this facility use dose modulation, iterative reconstruction, and/or weight-based dosing when appropriate to reduce radiation dose to as low as reasonably achievable. FINDINGS: In the abdomen, the unenhanced liver is again seen to have a tiny subcapsular cyst in the medial segment of left lobe of the liver towards the dome, segment 4A. The rest of the liver is normal in appearance. The spleen, pancreas, and adrenals are normal in appearance. The unenhanced kidneys are normal in appearance. Clips are seen again in the gall bladder fossa from cholecystectomy. There continues to be moderate dilatation of the common bile duct related to post cholecystectomy status, measuring 13 millimeters in caliber. The abdominal aorta is normal in caliber with no sign of dilatation. There is no sign of retroperitoneal mass or adenopathy. The stomach, loops of small bowel, and right: In the abdomen are normal in appearance. There is mild diverticulosis of the descending colon, unchanged compared to the previous study. In the pelvis, the appendix is nonvisualized, but there is no sign of an inflammatory process in the area of the appendix. There is no change in mild sigmoid diverticulosis without evidence of diverticulitis. The loops of small bowel and colon in the pelvis are otherwise normal in appearance. The uterus is absent and the adnexal regions are normal in appearance. The urinary bladder is normal in appearance. There is no sign of pelvic or inguinal mass or adenopathy. There is a no change in the 6 millimeter patchy nodule in the inferior lingula anteriorly on image 10 series 201. A tiny 3 millimeter subpleural nodular density is seen in the anterior-lateral right middle lobe on image 1 series 201. Both pulmonary nodules can be followed up using Fleischner society criteria. There is no change in moderate L3-4 disc degenerative disease. The rest of the osseous structures are normal in appearance. IMPRESSION: CT OF THE ABDOMEN SHOWS NO SIGN OF ANY INFLAMMATORY PROCESS INVOLVING THE BOWEL, WITH NOTHING SEEN TO SUGGEST ACTIVE CROHN`S DISEASE. AGAIN SEEN ARE CHANGES OF CHOLECYSTECTOMY. CT OF THE PELVIS SHOWS NO CHANGE IN MILD SIGMOID DIVERTICULOSIS WITH NO SIGN OF DIVERTICULITIS. STATUS POST HYSTERECTOMY. STABLE 6 MILLIMETER NODULE IN THE INFERIOR LINGULA. 3 MILLIMETER TINY SUBPLEURAL NODULE IN THE ANTERIOR-LATERAL RIGHT MIDDLE LOBE. THESE CAN BE FOLLOWED USING [employer] CRITERIA. [employer] GUIDELINES - SOLID NODULES: SINGLE LOW RISK - nodule less than 6 mm: No routine follow-up. - nodule 6-8 mm: CT at 6-12 months, then consider CT at 18-24 months. - nodule greater than 8 mm: Consider CT at 3 months, PET/CT or tissue sampling. SINGLE HIGH RISK - nodule less than 6 mm: Optional CT at 12 months. - nodule 6-8 mm: CT at 6-12 months, then CT at 18-24 months. - nodule greater than 8 mm: Consider CT at 3 months, PET/CT or tissue sampling. MULTIPLE LOW RISK - nodule less than 6 mm: No routine follow-up. - nodule 6-8 mm: CT at 3-6 months, then consider CT at 18-24 months. - nodule greater than 8 mm: CT at 3-6 months, then consider CT at 18-24 months. MULTIPLE HIGH RISK - nodule less than 6 mm: Optional CT at 12 months. - nodule 6-8 mm: CT at 3-6 months, then at 18-24 months. - nodule greater than 8 mm: CT at 3-6 months, then at 18-24 months. Please note that all CT scans at this facility use dose modulation, iterative reconstruction, and/or weight-based dosing when appropriate to reduce radiation dose to as low as reasonably achievable. Dictated by Mateo Tang MD @ Aug 13 2018 7:39PM Signed by Dr. Mateo Tang @ Aug 13 2018 7:59PM
[2018-08-13 20:30] VITALS: BP 174/120
== END 2018-08-13 20:30 | disposition home or self-care (01) ==
LOC: MW.ED 17:45
DX: R10.10 Upper abdominal pain, unspecified (principal); I10 Essential (primary) hypertension; Z88.8 Allergy status to other drugs, medicaments and biological substances; Z79.899 Other long term (current) drug therapy
CPT/HCPCS: 36415; 74176; 80053; 81001; 82150; 83690; 85025; 96361; 96374; 96375; 99284; G0480; J2060; J2270; J2405; J7040

== ENCOUNTER 2018-08-14 14:12 | Emergency (ER) | payer MEDICARE ==
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
[2018-08-14] MEDS ORDERED: hydrALAZINE 20 MG/ML SDV IVPUSH ONE (15:28)
[2018-08-14 16:09] VITALS: BP 155/99
== END 2018-08-14 16:32 ==
LOC: MW.ED 14:12
DX: F32.9 Major depressive disorder, single episode, unspecified (principal); I10 Essential (primary) hypertension; Z88.8 Allergy status to other drugs, medicaments and biological substances; Z79.899 Other long term (current) drug therapy
CPT/HCPCS: 36415; 80053; 80305; 81001; 83735; 84443; 85025; 93005; 96374; 99285; G0480; J0360; 99283

== ENCOUNTER 2018-09-07 13:44 | Emergency (ER) | payer MEDICARE ==
[2018-09-07] MEDS ORDERED: Ondansetron 4 MG/2 ML SDV IVPUSH ONE (14:41)
[2018-09-07] MEDS ORDERED: Dicyclomine 10 MG Cap PO ONE (14:41)
[2018-09-07] MEDS ORDERED: Sodium Chloride 0.9% 1,000 ML IV ONE (14:42)
[2018-09-07] MEDS ORDERED: LORazepam 2 MG/ML SDV IVPUSH ONE (16:25)
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
[2018-09-07 16:48] VITALS: BP 174/116
== END 2018-09-07 17:54 | disposition home or self-care (01) ==
LOC: MW.ED 13:44
DX: K50.118 Crohn's disease of large intestine with other complication (principal); J10.1 Influenza due to other identified influenza virus with other respiratory manifestations; F17.210 Nicotine dependence, cigarettes, uncomplicated; I10 Essential (primary) hypertension; Z79.899 Other long term (current) drug therapy; Z88.6 Allergy status to analgesic agent; Z88.1 Allergy status to other antibiotic agents; Z88.8 Allergy status to other drugs, medicaments and biological substances
CPT/HCPCS: 36415; 80053; 85025; 87804; 96361; 96374; 96375; 99283; A9270; J2060; J2405; J7040

== ENCOUNTER 2018-09-08 13:12 | Emergency (ER) | payer MEDICARE ==
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
[2018-09-08] MEDS: Ondansetron 4 MG Tab.DIS PO ONE (14:15)
[2018-09-08 14:22] LABS: CHLORIDE,CL 107 mmol/L (98-107); SODIUM,NA 137 mmol/L (136-145)
[2018-09-08] MEDS: Sodium Chloride 0.9% 2.5 ML Syringe FLUSH PRN (15:15)
[2018-09-08] MEDS: Sodium Chloride 0.9% 10 ML Syringe FLUSH PRN (15:15)
[2018-09-08] MEDS: Sodium Chloride 0.9% 1,000 ML IV ONE (15:15)
[2018-09-08 16:02] VITALS: BP 146/94
== END 2018-09-08 16:02 | disposition home or self-care (01) ==
LOC: MW.ED 13:12
DX: R11.2 Nausea with vomiting, unspecified (principal); I10 Essential (primary) hypertension; Z88.8 Allergy status to other drugs, medicaments and biological substances; Z79.899 Other long term (current) drug therapy
CPT/HCPCS: 36415; 80053; 83690; 85025; 96360; 99284; A9270; J7040; 99283

== ENCOUNTER 2018-09-15 10:25 | Emergency (ER) | payer MEDICARE ==
[2018-09-15] MEDS ORDERED: Sodium Chloride 0.9% 2.5 ML Syringe FLUSH PRN (10:34)
[2018-09-15] MEDS ORDERED: Sodium Chloride 0.9% 10 ML Syringe FLUSH PRN (10:34)
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
[2018-09-15] MEDS ORDERED: Ondansetron 4 MG/2 ML SDV IVPUSH ONE (10:46)
[2018-09-15] MEDS ORDERED: Sodium Chloride 0.9% 1,000 ML IV ONE (11:23)
[2018-09-15] MEDS ORDERED: Morphine 2 MG/ML Syringe IVPUSH ONE (11:55)
--- NOTE | 2018-09-15 11:55 | CR ---
EXAMINATION: Portable chest radiograph. HISTORY: Chest pain. FINDINGS: The trachea is midline. The cardiomediastinal silhouette is within normal limits. No pulmonary infiltrates, effusions or pneumothorax. Osseous structures appear unremarkable. IMPRESSION: No acute cardiopulmonary process.
[2018-09-15 12:01] LABS: CHLORIDE,CL 105 mmol/L (98-107); SODIUM,NA 140 mmol/L (136-145)
[2018-09-15] MEDS ORDERED: Lidocaine 1% 10 ML MDV INJECT ONE (12:21)
[2018-09-15] MEDS ORDERED: Iopamidol 755 MG/ML 500 ML Multipack Bottle IVPUSH STA (12:42)
[2018-09-15 12:45] VITALS: BP 169/101
--- NOTE | 2018-09-15 13:47 | CT ---
INDICATION: Abdominal pain, history of Crohn`s disease. TECHNIQUE: CT abdomen and pelvis acquired with 100 cc Isovue 370 IV contrast. COMPARISON: August 21, 2018, July 07, 2018 FINDINGS: Lower chest: Unremarkable. Liver: Unremarkable. Spleen: Unremarkable. Pancreas: Unremarkable. Gallbladder and bile ducts: S/p cholecystectomy. Mild intrahepatic and extrahepatic biliary ductal dilatation may be due to reservoir affect. Adrenal glands: Unremarkable. Kidneys: Stable scarring on the left kidney. GI tract: Colonic diverticulosis. Appendix is not seen but no inflammatory changes identified in the right lower quadrant. Vascular structures: Minimal atherosclerotic disease. Lymph nodes: Unremarkable. Miscellaneous: Unremarkable. No free air or significant free fluid. Pelvic Organs: Status post hysterectomy. Bones: Unremarkable for age. IMPRESSION: No etiology seen to explain abdominal pain. Colonic diverticulosis. Stable scarring on the left kidney. Status post cholecystectomy and hysterectomy. Please note that all CT scans at this facility use dose modulation, iterative reconstruction, and/or weight-based dosing when appropriate to reduce radiation dose to as low as reasonably achievable. Dictated by Beulah Mercado MD @ Sep 15 2018 1:34PM Signed by Dr. Beulah Mercado @ Sep 15 2018 1:46PM
== END 2018-09-15 14:10 | disposition home or self-care (01) ==
LOC: MW.ED 10:25
DX: R10.84 Generalized abdominal pain (principal); I10 Essential (primary) hypertension; K50.90 Crohn's disease, unspecified, without complications; Z88.6 Allergy status to analgesic agent; Z88.1 Allergy status to other antibiotic agents; F41.9 Anxiety disorder, unspecified; F32.9 Major depressive disorder, single episode, unspecified
CPT/HCPCS: 36415; 71045; 74177; 80053; 83690; 84484; 85025; 93005; 96361; 96374; 96375; 99284; J2270; J2405; J7040; Q9967

== ENCOUNTER 2018-10-13 21:01 | Emergency (ER) | payer MEDICARE ==
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
--- NOTE | 2018-10-13 22:45 | CR ---
HISTORY: Pain COMPARISON: None available. FINDINGS: AP, lateral and oblique views of the right ankle were obtained for a total of three views. There is no sign of fracture or dislocation. The ankle mortise is intact. The talar dome is intact. There is no sign of a joint effusion. The soft tissues are normal in appearance with no sign of foreign body. No degenerative changes are seen IMPRESSION: Normal right ankle. Dictated by Mateo Tang MD @ Oct 13 2018 10:42PM Signed by Dr. Mateo Tang @ Oct 13 2018 10:43PM
[2018-10-14 00:16] VITALS: BP 158/94
== END 2018-10-13 23:17 | disposition home or self-care (01) ==
LOC: MW.ED 21:01
DX: S99.911A Unspecified injury of right ankle, initial encounter (principal); F17.210 Nicotine dependence, cigarettes, uncomplicated; I10 Essential (primary) hypertension; K50.90 Crohn's disease, unspecified, without complications; Z88.1 Allergy status to other antibiotic agents; Z88.6 Allergy status to analgesic agent; Z88.5 Allergy status to narcotic agent; Z79.899 Other long term (current) drug therapy; X58.XXXA Exposure to other specified factors, initial encounter
CPT/HCPCS: 73610-26-RT; 73610-RT; 99283-25

== ENCOUNTER 2018-11-09 18:19 | Emergency (ER) | payer MEDICARE ==
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
[2018-11-09] MEDS ORDERED: Acetaminophen/HYDROcodone 325-5 MG Tab PO ONE (18:46)
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
[2018-11-09 20:18] VITALS: BP 167/112
== END 2018-11-09 20:43 | disposition home or self-care (01) ==
LOC: MW.ED 18:19
DX: S00.432A Contusion of left ear, initial encounter (principal); S00.83XA Contusion of other part of head, initial encounter; S09.90XA Unspecified injury of head, initial encounter; I10 Essential (primary) hypertension; Z88.8 Allergy status to other drugs, medicaments and biological substances; Z88.5 Allergy status to narcotic agent; Z79.899 Other long term (current) drug therapy; Z79.82 Long term (current) use of aspirin; Y04.8XXA Assault by other bodily force, initial encounter
CPT/HCPCS: 70450; 70486; 99284; A9270

== ENCOUNTER 2018-12-03 17:59 | Emergency (ER) | payer MEDICARE ==
[2018-12-03 18:14] VITALS: BP 147/94
== END 2018-12-03 20:15 | disposition left against medical advice (07) ==
LOC: MW.ED 17:59
DX: Z53.21 Procedure and treatment not carried out due to patient leaving prior to being seen by health care provider (principal)

== ENCOUNTER 2018-12-04 13:08 | Emergency (ER) | payer MEDICARE ==
[2018-12-04 13:51] VITALS: BP 156/121
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
== END 2018-12-04 14:28 | disposition left against medical advice (07) ==
LOC: MW.ED 13:08
DX: R68.84 Jaw pain (principal); H92.01 Otalgia, right ear; Z88.6 Allergy status to analgesic agent; Z88.5 Allergy status to narcotic agent; Z79.899 Other long term (current) drug therapy; I10 Essential (primary) hypertension; M19.90 Unspecified osteoarthritis, unspecified site; M06.9 Rheumatoid arthritis, unspecified; F41.9 Anxiety disorder, unspecified; F32.9 Major depressive disorder, single episode, unspecified; Z90.49 Acquired absence of other specified parts of digestive tract; Z90.710 Acquired absence of both cervix and uterus; F17.210 Nicotine dependence, cigarettes, uncomplicated
CPT/HCPCS: 99282

== ENCOUNTER 2018-12-10 22:30 | Emergency (ER) | payer MEDICARE ==
[2018-12-10 22:39] VITALS: BP 202/118
== END 2018-12-10 22:44 | disposition home or self-care (01) ==
LOC: MW.ED 22:30
DX: Z53.21 Procedure and treatment not carried out due to patient leaving prior to being seen by health care provider (principal)
CPT/HCPCS: 99283

== ENCOUNTER 2018-12-16 17:30 | Emergency (ER) | payer MEDICARE ==
[2018-12-16 17:44] VITALS: BP 158/96
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
== END 2018-12-16 18:00 | disposition home or self-care (01) ==
LOC: MW.ED 17:30
DX: M62.838 Other muscle spasm (principal); F41.9 Anxiety disorder, unspecified; I10 Essential (primary) hypertension; F31.9 Bipolar disorder, unspecified; F43.10 Post-traumatic stress disorder, unspecified; Z79.899 Other long term (current) drug therapy; Z88.6 Allergy status to analgesic agent; Z88.1 Allergy status to other antibiotic agents
CPT/HCPCS: 99283

== ENCOUNTER 2019-04-20 15:18 | Emergency (ER) | payer MEDICAID, MEDICARE ==
[2019-04-20] MEDS ORDERED: Sodium Chloride 0.9% 2.5 ML Syringe FLUSH PRN (15:32)
[2019-04-20] MEDS ORDERED: Sodium Chloride 0.9% 10 ML Syringe FLUSH PRN (15:32)
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
[2019-04-20] MEDS ORDERED: Aspirin 81 MG Tab.Chew PO ONE (15:33)
[2019-04-20] MEDS ORDERED: Diltiazem 25 MG/5 ML SDV IVPUSH ONE ×3 (15:33→16:50)
[2019-04-20] MEDS ORDERED: Sodium Chloride 0.9% 1,000 ML IV ONE (16:32)
[2019-04-20 16:55] LABS: BLOOD UREA NITROGEN,BUN 37 mg/dL (7.0-18.0); CARBON DIOXIDE,CO2 17.1 mmol/L (21.0-32.0); CHLORIDE,CL 108 mmol/L (98-107); GLUCOSE RANDOM 104 mg/dL (74-106); POTASSIUM,K 3.7 mmol/L (3.5-5.1); SODIUM,NA 145 mmol/L (136-145)
[2019-04-20] MEDS ORDERED: HYDROmorphone 1 MG/ML Syringe IVPUSH ONE ×2 (17:04→19:04)
--- NOTE | 2019-04-20 17:05 | CR ---
Indication: Weakness. Technique: A single AP portable view of the chest was obtained. Comparison: September 15, 2018. Findings: The heart is normal in size. The lungs are clear. No infiltrate, pleural effusion, or pneumothorax is identified. Impression: No acute cardiopulmonary process. Dictated by Rukhsana Oneil MD @ Apr 20 2019 5:03PM Signed by Dr. Rukhsana Oneil @ Apr 20 2019 5:04PM
[2019-04-20] MEDS ORDERED: Diltiazem 125 MG in Sodium Chloride 0.9% 100 ML IV SCH (17:15)
[2019-04-20] MEDS ORDERED: Diltiazem 100 MG in Sodium Chloride 0.9% 100 ML IV SCH ×2 (17:30→17:39)
[2019-04-20 19:15] VITALS: BP 118/81; PULSE 108
== END 2019-04-20 19:54 | disposition home or self-care (01) ==
LOC: MW.ED 15:18
DX: I48.91 Unspecified atrial fibrillation (principal); I10 Essential (primary) hypertension; M06.9 Rheumatoid arthritis, unspecified; F17.210 Nicotine dependence, cigarettes, uncomplicated; Z90.49 Acquired absence of other specified parts of digestive tract; Z90.710 Acquired absence of both cervix and uterus; Z88.6 Allergy status to analgesic agent; Z88.8 Allergy status to other drugs, medicaments and biological substances; Z79.899 Other long term (current) drug therapy
CPT/HCPCS: 36415; 71045; 80053; 84484; 85025; 93005; 96361; 96365; 96366; 96375; 96376; 99285; A9270; J1170; J3490; J7030; J7040; 99284

== ENCOUNTER 2019-05-19 11:51 | Observation (INO) | payer MEDICARE ==
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
[2019-05-19] MEDS: Nitroglycerin 0.4 MG Tab.SL SL PRN ×3 (12:24→12:35)
[2019-05-19 12:52] LABS: BLOOD UREA NITROGEN,BUN 23 mg/dL (7.0-18.0); CARBON DIOXIDE,CO2 25.2 mmol/L (21.0-32.0); CHLORIDE,CL 104 mmol/L (98-107); GLUCOSE RANDOM 94 mg/dL (74-106); SODIUM,NA 142 mmol/L (136-145)
--- NOTE | 2019-05-19 13:24 | CR ---
EXAM DATE: 05/19/19 PATIENT'S AGE: 54 Chest: AP view of the chest was obtained. Comparison: Prior chest x-ray of 04/20/19. Heart size is normal. Tortuous thoracic aorta is noted. Lungs are clear. Bony structures are grossly intact. Impression: 1. Nothing acute is seen on AP chest x-ray. Diagnostic code #1 Report Signed by Proxy. MALDONADO
[2019-05-19] MEDS ORDERED: Pantoprazole 40 MG in Sodium Chloride 0.9% 10 ML IV ONE (13:33)
[2019-05-19] MEDS ORDERED: Sodium Chloride 0.9% 2.5 ML Syringe FLUSH PRN (13:33)
[2019-05-19] MEDS ORDERED: Ondansetron 4 MG/2 ML SDV IVPUSH PRN (13:33)
[2019-05-19] MEDS ORDERED: Acetaminophen 325 MG Tab PO PRN (13:33)
[2019-05-19] MEDS ORDERED: amLODIPine 5 MG Tab PO ONE (14:18)
[2019-05-19] MEDS ORDERED: METOPROLOL TARTRATE 75 MG PO SCH (14:19)
[2019-05-19] MEDS ORDERED: CLONAZEPAM PO PRN (14:19)
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
[2019-05-19] MEDS ORDERED: Metoprolol Tartrate 25 MG Tab PO SCH (14:31)
[2019-05-19 14:45] LABS: HEMOGLOBIN A1C 5.6 % (4.5-6.2)
[2019-05-19] MEDS: Clindamycin HCl 150 MG Cap PO SCH ×2 (14:48→22:58)
[2019-05-19] MEDS: Sodium Chloride 0.9% 1,000 ML IV SCH ×2 (14:49→22:59)
[2019-05-19] MEDS: ClonazePAM 1 MG Tab PO PRN ×2 (14:49→21:14)
[2019-05-19] MEDS: Morphine 2 MG/ML Syringe IVPUSH PRN ×2 (14:50→19:35)
[2019-05-19] MEDS: Acetaminophen/Codeine 300-30 MG Tab PO PRN (16:15)
[2019-05-19] MEDS ORDERED: LORazepam 1 MG Tab PO ONE (23:59)
[2019-05-20] MEDS: Sodium Chloride 0.9% 1,000 ML IV SCH (06:01)
[2019-05-20 06:29] LABS: CARBON DIOXIDE,CO2 25.1 mmol/L (21.0-32.0)
[2019-05-20] MEDS: Clindamycin HCl 150 MG Cap PO SCH (07:18)
[2019-05-20 07:20] VITALS: PULSE 61
[2019-05-20] MEDS: Acetaminophen/Codeine 300-30 MG Tab PO PRN (08:58)
[2019-05-20] MEDS ORDERED: Metoprolol Tartrate 25 MG Tab PO SCH (09:00)
[2019-05-20] MEDS ORDERED: Aspirin 81 MG Tab.EC PO SCH (09:00)
[2019-05-20] MEDS ORDERED: Lisinopril/Hydrochlorothiazide 10-12.5 MG Tab PO SCH (09:00)
[2019-05-20] MEDS ORDERED: Pantoprazole 40 MG Tab.CR PO SCH (09:00)
[2019-05-20] MEDS ORDERED: amLODIPine 5 MG Tab PO SCH (09:45)
[2019-05-20 10:35] VITALS: BP 135/76
--- NOTE | 2019-05-20 10:57 | PCM.DCSUM1 ---
Discharge Summary - Hospital Course Brief History: This 54 year old female with pmh of afib, HTN, anxiety, GERD, RA and Crohns disease presented to the ED with complaints of nose bleed and chest pain that started at home. She reports she was at home with her grandson and started having a nose bleed. She reports it was bleeding very heavily and then started feeling nauseated and became sick to her stomach and vomited. She reports there was blood in her emesis. She reports she then started having chest pain and came to the ED. She reports she was up walking when the chest pain started, it was sharp and squeezing in nature, moved under her L breast. She reports nausea and mild diaphoresis with this pain. Deep breathing made the pain worse and the pain improved with Nitro paste given in the ED. She reports she overall has not been feeling the greatest since she was in [place] for her afib. She feels worn out. She has been taking her medications as prescribed, they increased Metoprolol to 75 mg BID and added daily ASA 81 mg. She has continued taking her Lisinopril/HCTZ for BP. She feels like she is under a lot of stress since she was diagnosed with Afib, her father has stage IV pancreatic cancer which causes her anxiety. She is taking Clonazepam for this, which was recently increased to 4 times daily. Smokes 1/2 ppd cigarettes, occasional alcohol use, reports THC use for Crohn's awaiting getting her medical marijuana card. Denies Methamphetamine use in in many months to a year. She denies fevers , reports mild chills. No dyspnea, but reports she has a lot of sinus congestion with post nasal drip and is coughing from that. Reports she has a molar on her R bottom that is nearly coming out and very tender. Reports mild swelling to jaw from this. Has appointment with Dentist in a few weeks. She denies abdominal pain or black or bloody BMs. No urinary concerns. No skin rashes and no acute neurologic concerns. In the ED CBC WNL, hgb 15.2. INR 0.9. BUN 23 and Cr 1.1(near baseline). AST 49, ALT 94, Alk phos 197 Troponin negative. EKG SR with no ST elevation or T wave inversions, CXR negative, mild hyperinflation. BPs in ED noted to quite elevated, mild improvement with Nitro paste. Initially 190/100, improved to 150-170/100. Nose bleed resolved with compression and ice in the ED. She will be admitted for atypical chest pain rule out ASC. PCP, Dr Steward and Dr Rocha. - Discharge Data Discharge Date: 05/20/19 Discharge Disposition: Home, Self-Care 01 Condition: Good - Referral to Home Health Primary Care Physician: Eligio Steward MD - Discharge Diagnosis/Problem(s) (1) Chest pain SNOMED Code(s): 25977396 ICD Code: R07.9 - CHEST PAIN, UNSPECIFIED Status: Acute Current Visit: Yes Qualifiers: Chest pain type: unspecified Qualified Code(s): R07.9 - Chest pain, unspecified (2) Bleeding nose SNOMED Code(s): 652496517 ICD Code: R04.0 - EPISTAXIS Status: Resolved Current Visit: Yes (3) Crohns disease SNOMED Code(s): 93950427 ICD Code: K50.90 - CROHN'S DISEASE, UNSPECIFIED, WITHOUT COMPLICATIONS Status: Chronic Current Visit: No Qualifiers: Gastrointestinal tract location: unspecified location Digestive disease complication type: unspecified complication Qualified Code(s): K50.919 - Crohn 's disease, unspecified, with unspecified complications (4) Depressive disorder SNOMED Code(s): 87608551 ICD Code: F32.9 - MAJOR DEPRESSIVE DISORDER, SINGLE EPISODE, UNSPECIFIED Status: Chronic Current Visit: No (5) History of Crohn's disease SNOMED Code(s): 214125554741999 ICD Code: Z87.19 - PERSONAL HISTORY OF OTHER DISEASES OF THE DIGESTIVE SYSTEM Status: Chronic Priority: Medium Current Visit: No (6) Hypertension SNOMED Code(s): 71764135 ICD Code: I10 - ESSENTIAL (PRIMARY) HYPERTENSION Status: Chronic Current Visit: No - Patient Instructions Diet: Heart Healthy Diet Activity: No Strenuous Activities Driving: Do Not Drive Notify Provider of: Fever, Increased Pain, Swelling and Redness, Drainage, Nausea and/or Vomiting Other/Special Instructions: Contact Dentist for tooth extraction - Discharge Plan *PRESCRIPTION DRUG MONITORING PROGRAM REVIEWED*: Not Applicable *COPY OF PRESCRIPTION DRUG MONITORING REPORT IN PATIENT DAVINA: Not Applicable Prescriptions/Med Rec: amLODIPine Besylate [Norvasc] 10 mg PO DAILY #30 tablet atorvaSTATin [Lipitor] 10 mg PO BEDTIME #30 tab Clindamycin HCl [Cleocin] 450 mg PO Q8H 9 Days #81 cap Home Medications: Home Meds Pantoprazole Sodium 1 tab PO DAILY 08/21/18 [History] ClonazePAM [KlonoPIN] 1 tab PO QID PRN 09/08/18 [History] Zolpidem Tartrate [Ambien] 1 tab PO QPM PRN 09/08/18 [History] Dicyclomine HCl [Bentyl] 1 - 2 tab PO QID PRN 01/12/19 [History] Metoprolol Tartrate 75 mg PO BID 04/20/19 [History] Acetaminophen with Codeine [Tylenol with Codeine #3 Tablet] 1 each PO QID PRN [History] Aspirin [Adult Low Dose Aspirin EC] 81 mg PO DAILY 05/19/19 [History] Clindamycin HCl [Cleocin] 450 mg PO Q8H 9 Days #81 cap 05/20/19 [Rx] amLODIPine Besylate [Norvasc] 10 mg PO DAILY #30 tablet 05/20/19 [Rx] atorvaSTATin [Lipitor] 10 mg PO BEDTIME #30 tab 05/20/19 [Rx] Oxygen Therapy Mode: Room Air Patient Handouts: How to Take Your Blood Pressure, [id number], Clindamycin capsules, Nonspecific Chest Pain, [id number], Hypertension, [id number], Atorvastatin tablets, Amlodipine tablets Referrals: Eligio Steward MD [Primary Care Provider] - 06/02/19 11:00 am Paresh Littlejohn MD [Ordering Only Provider] - 06/01/19 1:45 pm - Discharge Summary/Plan Comment DC Time >30 min.: No Discharge Summary/Plan Comment: Admitting Diagnoses: Atypical chest pain Epistaxis HTN Discharge Diagnoses: Atypical chest pain Epistaxis- resolved prior to admission HTN Possible tooth infection Other PMH: Afib Hx methamphetamine use Anxiety/Depression Rosy was admitted for atypical chest pain that was reproducible to palpation. She was monitored on telemetry, remained in SR with no ST elevation or T wave inversions. Troponins were negative. She remained on Metoprolol 75 mg BID and Lisinopril/HCTZ. BP remained elevated in 160/90s. Norvasc 10 mg started which dropped BP to 130/60s. She is feeling much better this morning, continues to have mild reproducible chest pain to anterior chest with movement and palpation. Intructed to trial Tylenol, likely musculoskeletal. She had no further epistaxis during admission likely related to high BP and ASA use. She was encouraged to monitor BP at home with new medication starting. She was given prescription for BP cuff. She verbalizes understanding of monitoring this. She was instructed to keep taking ASA. Cholesterol was monitored here, will start low dose Atorvastatin 10 mg, LFTs scantly elevated, and should be monitored during treatment as outpatient. Triglycerides 115, total 222, LDL 142 and HDL 57. A1c 5.6. On admission, she complained of R sided molar pain, tooth is quite loose with scant erythema, no overt purulence. Scnat R jaw swelling. No leukocytosis. Clindamycin 450 mg Q8 hr PO started, she is feeling improved today. Mild pain to this tooth. Attempted to contact [facility] in [facility], but many are closed today or are not accepting patients. She will be provided with phone numbers and is instructed to call on Thursday to arrange extraction. She will be discharged home today with follow up with PCP and Dr Littlejohn for stress test. He wanted stress test after Afib admission as well, this will be scheduled prior to discharge. She is to return to ED or clinic if concerns should arise. - General Info Date of Service: 05/20/19 Admission Dx/Problem (Free Text: Admission Diagnosis/Problem Admission Diagnosis/Problem Chest pain - Patient Data Vitals - Most Recent: Last Vital Signs Temp 97.1 F 05/20/19 07:19 Pulse 61 05/20/19 08:10 Resp 18 05/20/19 07:19 BP 135/76 05/20/19 10:38 Pulse Ox 98 05/20/19 07:19 Weight - Most Recent: 86.954 kg I&O - Last 24 hours: Intake & Output 05/19/19 05/20/19 05/20/19 22:59 06:59 14:59 Intake Total 3324 Output Total 2550 Balance 774 Lab Results - Last 24 hrs: Laboratory Results - last 24 hr 05/19/19 05/19/19 05/19/19 Range/Units 12:08 12:08 12:08 WBC 7.43 (4.0-11.0) K/uL RBC 4.94 (4.30-5.90) M/uL Hgb 15.2 (12.0-16.0) g/dL Hct 44.1 (36.0-46.0) % MCV 89.3 (80.0-98.0) fL MCH 30.8 (27.0-32.0) pg MCHC 34.5 (31.0-37.0) g/dL RDW Std Deviation 46.7 (28.0-62.0) fl RDW Coeff of Abdirahman 15 (11.0-15.0) % Plt Count 416 H (150-400) K/uL MPV 9.40 (7.40-12.00) fL Neut % (Auto) 66.7 (48.0-80.0) % Lymph % (Auto) 19.2 (16.0-40.0) % Chase % (Auto) 8.7 (0.0-15.0) % Eos % (Auto) 4.6 (0.0-7.0) % Baso % (Auto) 0.8 (0.0-1.5) % Neut # (Auto) 5.0 (1.4-5.7) K/uL Lymph # (Auto) 1.4 (0.6-2.4) K/uL Chase # (Auto) 0.7 (0.0-0.8) K/uL Eos # (Auto) 0.3 (0.0-0.7) K/uL Baso # (Auto) 0.1 (0.0-0.1) K/uL Nucleated RBC % 0.0 /100WBC Nucleated RBCs # 0 K/uL INR 0.90 APTT (18.6-31.3) SEC Sodium 142 (136-145) mmol/L Potassium 4.0 (3.5-5.1) mmol/L Chloride 104 (98-107) mmol/L Carbon Dioxide 25.2 (21.0-32.0) mmol/L BUN 23 H (7.0-18.0) mg/dL Creatinine 1.1 H (0.6-1.0) mg/dL Est Cr Clr Drug Dosing 69.59 mL/min Estimated GFR (MDRD) 51.8 ml/min Glucose 94 (74-106) mg/dL Hemoglobin A1c (4.5-6.2) % Calcium 9.1 (8.5-10.1) mg/dL Total Bilirubin 0.5 (0.2-1.0) mg/dL AST 49 H (15-37) IU/L ALT 94 H (14-63) IU/L Alkaline Phosphatase 197 H (46-116) U/L Troponin I < 0.050 (0.000-0.056) ng/mL Total Protein 8.4 H (6.4-8.2) g/dL Albumin 4.1 (3.4-5.0) g/dL Globulin 4.3 H (2.6-4.0) g/dL Albumin/Globulin Ratio 1.0 (0.9-1.6) Triglycerides (0-200) mg/dL Cholesterol (50-200) mg/dL LDL Cholesterol, Calc (60-180) mg/dL VLDL Cholesterol (5-55) mg/dL HDL Cholesterol (40-60) mg/dL Cholesterol/HDL Ratio (3.3-6.0) TSH 3rd Generation (0.36-3.74) uIU/mL Urine Color Urine Appearance Urine pH (5.0-8.0) Ur Specific Loyal (1.001-1.035) Urine Protein (NEGATIVE) mg/dL Urine Glucose (UA) (NEGATIVE) mg/dL Urine Ketones (NEGATIVE) mg/dL Urine Occult Blood (NEGATIVE) Urine Nitrite (NEGATIVE) Urine Bilirubin (NEGATIVE) Urine Ictotest Urine Urobilinogen (<2.0) EU/dL Ur Leukocyte Esterase (NEGATIVE) Urine RBC (0-2/HPF) Urine WBC (0-5/HPF) Ur Epithelial Cells (NONE-FEW) Urine Bacteria (NEGATIVE) Urine Mucus (NONE-MOD) Urine Opiates Screen (NEGATIVE) Ur Oxycodone Screen (NEGATIVE) Urine Methadone Screen (NEGATIVE) Ur Barbiturates Screen (NEGATIVE) Ur Phencyclidine Scrn (NEGATIVE) Ur Amphetamine Screen (NEGATIVE) U Methamphetamines Scrn (NEGATIVE) U Benzodiazepines Scrn (NEGATIVE) U Cocaine Metab Screen (NEGATIVE) U Marijuana (THC) Screen (NEGATIVE) 05/19/19 05/19/19 05/19/19 Range/Units 12:08 12:08 12:08 WBC (4.0-11.0) K/uL RBC (4.30-5.90) M/uL Hgb (12.0-16.0) g/dL Hct (36.0-46.0) % MCV (80.0-98.0) fL MCH (27.0-32.0) pg MCHC (31.0-37.0) g/dL RDW Std Deviation (28.0-62.0) fl RDW Coeff of Abdirahman (11.0-15.0) % Plt Count (150-400) K/uL MPV (7.40-12.00) fL Neut % (Auto) (48.0-80.0) % Lymph % (Auto) (16.0-40.0) % Chase % (Auto) (0.0-15.0) % Eos % (Auto) (0.0-7.0) % Baso % (Auto) (0.0-1.5) % Neut # (Auto) (1.4-5.7) K/uL Lymph # (Auto) (0.6-2.4) K/uL Chase # (Auto) (0.0-0.8) K/uL Eos # (Auto) (0.0-0.7) K/uL Baso # (Auto) (0.0-0.1) K/uL Nucleated RBC % /100WBC Nucleated RBCs # K/uL INR APTT 23.9 (18.6-31.3) SEC Sodium (136-145) mmol/L Potassium (3.5-5.1) mmol/L Chloride (98-107) mmol/L Carbon Dioxide (21.0-32.0) mmol/L BUN (7.0-18.0) mg/dL Creatinine (0.6-1.0) mg/dL Est Cr Clr Drug Dosing mL/min Estimated GFR (MDRD) ml/min Glucose (74-106) mg/dL Hemoglobin A1c 5.6 (4.5-6.2) % Calcium (8.5-10.1) mg/dL Total Bilirubin (0.2-1.0) mg/dL AST (15-37) IU/L ALT (14-63) IU/L Alkaline Phosphatase (46-116) U/L Troponin I (0.000-0.056) ng/mL Total Protein (6.4-8.2) g/dL Albumin (3.4-5.0) g/dL Globulin (2.6-4.0) g/dL Albumin/Globulin Ratio (0.9-1.6) Triglycerides 115 (0-200) mg/dL Cholesterol 222 H (50-200) mg/dL LDL Cholesterol, Calc 142 (60-180) mg/dL VLDL Cholesterol 23 (5-55) mg/dL HDL Cholesterol 57 (40-60) mg/dL Cholesterol/HDL Ratio 3.9 (3.3-6.0) TSH 3rd Generation 1.09 (0.36-3.74) uIU/mL Urine Color Urine Appearance Urine pH (5.0-8.0) Ur Specific Loyal (1.001-1.035) Urine Protein (NEGATIVE) mg/dL Urine Glucose (UA) (NEGATIVE) mg/dL Urine Ketones (NEGATIVE) mg/dL Urine Occult Blood (NEGATIVE) Urine Nitrite (NEGATIVE) Urine Bilirubin (NEGATIVE) Urine Ictotest Urine Urobilinogen (<2.0) EU/dL Ur Leukocyte Esterase (NEGATIVE) Urine RBC (0-2/HPF) Urine WBC (0-5/HPF) Ur Epithelial Cells (NONE-FEW) Urine Bacteria (NEGATIVE) Urine Mucus (NONE-MOD) Urine Opiates Screen (NEGATIVE) Ur Oxycodone Screen (NEGATIVE) Urine Methadone Screen (NEGATIVE) Ur Barbiturates Screen (NEGATIVE) Ur Phencyclidine Scrn (NEGATIVE) Ur Amphetamine Screen (NEGATIVE) U Methamphetamines Scrn (NEGATIVE) U Benzodiazepines Scrn (NEGATIVE) U Cocaine Metab Screen (NEGATIVE) U Marijuana (THC) Screen (NEGATIVE) 05/19/19 05/19/19 05/19/19 Range/Units 13:40 13:40 15:20 WBC (4.0-11.0) K/uL RBC (4.30-5.90) M/uL Hgb (12.0-16.0) g/dL Hct (36.0-46.0) % MCV (80.0-98.0) fL MCH (27.0-32.0) pg MCHC (31.0-37.0) g/dL RDW Std Deviation (28.0-62.0) fl RDW Coeff of Abdirahman (11.0-15.0) % Plt Count (150-400) K/uL MPV (7.40-12.00) fL Neut % (Auto) (48.0-80.0) % Lymph % (Auto) (16.0-40.0) % Chase % (Auto) (0.0-15.0) % Eos % (Auto) (0.0-7.0) % Baso % (Auto) (0.0-1.5) % Neut # (Auto) (1.4-5.7) K/uL Lymph # (Auto) (0.6-2.4) K/uL Chase # (Auto) (0.0-0.8) K/uL Eos # (Auto) (0.0-0.7) K/uL Baso # (Auto) (0.0-0.1) K/uL Nucleated RBC % /100WBC Nucleated RBCs # K/uL INR APTT (18.6-31.3) SEC Sodium (136-145) mmol/L Potassium (3.5-5.1) mmol/L Chloride (98-107) mmol/L Carbon Dioxide (21.0-32.0) mmol/L BUN (7.0-18.0) mg/dL Creatinine (0.6-1.0) mg/dL Est Cr Clr Drug Dosing mL/min Estimated GFR (MDRD) ml/min Glucose (74-106) mg/dL Hemoglobin A1c (4.5-6.2) % Calcium (8.5-10.1) mg/dL Total Bilirubin (0.2-1.0) mg/dL AST (15-37) IU/L ALT (14-63) IU/L Alkaline Phosphatase (46-116) U/L Troponin I < 0.050 (0.000-0.056) ng/mL Total Protein (6.4-8.2) g/dL Albumin (3.4-5.0) g/dL Globulin (2.6-4.0) g/dL Albumin/Globulin Ratio (0.9-1.6) Triglycerides (0-200) mg/dL Cholesterol (50-200) mg/dL LDL Cholesterol, Calc (60-180) mg/dL VLDL Cholesterol (5-55) mg/dL HDL Cholesterol (40-60) mg/dL Cholesterol/HDL Ratio (3.3-6.0) TSH 3rd Generation (0.36-3.74) uIU/mL Urine Color YELLOW Urine Appearance HAZY Urine pH 6.5 (5.0-8.0) Ur Specific Loyal 1.025 (1.001-1.035) Urine Protein TRACE H (NEGATIVE) mg/dL Urine Glucose (UA) NEGATIVE (NEGATIVE) mg/dL Urine Ketones 15 H (NEGATIVE) mg/dL Urine Occult Blood NEGATIVE (NEGATIVE) Urine Nitrite NEGATIVE (NEGATIVE) Urine Bilirubin SMALL H (NEGATIVE) Urine Ictotest NEGATIVE Urine Urobilinogen 0.2 (<2.0) EU/dL Ur Leukocyte Esterase NEGATIVE (NEGATIVE) Urine RBC 0-1 (0-2/HPF) Urine WBC 0-2 (0-5/HPF) Ur Epithelial Cells FEW (NONE-FEW) Urine Bacteria FEW (NEGATIVE) Urine Mucus LIGHT (NONE-MOD) Urine Opiates Screen POSITIVE (NEGATIVE) Ur Oxycodone Screen NEGATIVE (NEGATIVE) Urine Methadone Screen NEGATIVE (NEGATIVE) Ur Barbiturates Screen NEGATIVE (NEGATIVE) Ur Phencyclidine Scrn NEGATIVE (NEGATIVE) Ur Amphetamine Screen NEGATIVE (NEGATIVE) U Methamphetamines Scrn NEGATIVE (NEGATIVE) U Benzodiazepines Scrn NEGATIVE (NEGATIVE) U Cocaine Metab Screen NEGATIVE (NEGATIVE) U Marijuana (THC) Screen POSITIVE (NEGATIVE) 05/19/19 05/19/19 05/20/19 Range/Units 18:00 21:50 05:56 WBC (4.0-11.0) K/uL RBC (4.30-5.90) M/uL Hgb (12.0-16.0) g/dL Hct (36.0-46.0) % MCV (80.0-98.0) fL MCH (27.0-32.0) pg MCHC (31.0-37.0) g/dL RDW Std Deviation (28.0-62.0) fl RDW Coeff of Abdirahman (11.0-15.0) % Plt Count (150-400) K/uL MPV (7.40-12.00) fL Neut % (Auto) (48.0-80.0) % Lymph % (Auto) (16.0-40.0) % Chase % (Auto) (0.0-15.0) % Eos % (Auto) (0.0-7.0) % Baso % (Auto) (0.0-1.5) % Neut # (Auto) (1.4-5.7) K/uL Lymph # (Auto) (0.6-2.4) K/uL Chase # (Auto) (0.0-0.8) K/uL Eos # (Auto) (0.0-0.7) K/uL Baso # (Auto) (0.0-0.1) K/uL Nucleated RBC % /100WBC Nucleated RBCs # K/uL INR APTT (18.6-31.3) SEC Sodium 143 (136-145) mmol/L Potassium 4.0 (3.5-5.1) mmol/L Chloride 109 H (98-107) mmol/L Carbon Dioxide 25.1 (21.0-32.0) mmol/L BUN 19 H (7.0-18.0) mg/dL Creatinine 1.0 (0.6-1.0) mg/dL Est Cr Clr Drug Dosing 76.55 mL/min Estimated GFR (MDRD) 57.8 ml/min Glucose 107 H (74-106) mg/dL Hemoglobin A1c (4.5-6.2) % Calcium 8.0 L (8.5-10.1) mg/dL Total Bilirubin 0.4 (0.2-1.0) mg/dL AST 26 (15-37) IU/L ALT 65 H (14-63) IU/L Alkaline Phosphatase 139 H (46-116) U/L Troponin I < 0.050 < 0.050 (0.000-0.056) ng/mL Total Protein 6.5 (6.4-8.2) g/dL Albumin 3.0 L (3.4-5.0) g/dL Globulin 3.5 (2.6-4.0) g/dL Albumin/Globulin Ratio 0.9 (0.9-1.6) Triglycerides (0-200) mg/dL Cholesterol (50-200) mg/dL LDL Cholesterol, Calc (60-180) mg/dL VLDL Cholesterol (5-55) mg/dL HDL Cholesterol (40-60) mg/dL Cholesterol/HDL Ratio (3.3-6.0) TSH 3rd Generation (0.36-3.74) uIU/mL Urine Color Urine Appearance Urine pH (5.0-8.0) Ur Specific Loyal (1.001-1.035) Urine Protein (NEGATIVE) mg/dL Urine Glucose (UA) (NEGATIVE) mg/dL Urine Ketones (NEGATIVE) mg/dL Urine Occult Blood (NEGATIVE) Urine Nitrite (NEGATIVE) Urine Bilirubin (NEGATIVE) Urine Ictotest Urine Urobilinogen (<2.0) EU/dL Ur Leukocyte Esterase (NEGATIVE) Urine RBC (0-2/HPF) Urine WBC (0-5/HPF) Ur Epithelial Cells (NONE-FEW) Urine Bacteria (NEGATIVE) Urine Mucus (NONE-MOD) Urine Opiates Screen (NEGATIVE) Ur Oxycodone Screen (NEGATIVE) Urine Methadone Screen (NEGATIVE) Ur Barbiturates Screen (NEGATIVE) Ur Phencyclidine Scrn (NEGATIVE) Ur Amphetamine Screen (NEGATIVE) U Methamphetamines Scrn (NEGATIVE) U Benzodiazepines Scrn (NEGATIVE) U Cocaine Metab Screen (NEGATIVE) U Marijuana (THC) Screen (NEGATIVE) Med Orders - Current: Current Medications Acetaminophen (Tylenol) 650 mg PO Q4H PRN PRN Reason: Pain (mild 1-3) Acetaminophen/Codeine Phosphate (Tylenol With Codeine No.3 300mg/30mg) 1 tab PO Q6H PRN PRN Reason: Pain Last Admin: 05/20/19 08:58 Dose: 1 tab Amlodipine Besylate (Norvasc) 10 mg PO DAILY [facility] Last Admin: 05/20/19 10:38 Dose: 10 mg Aspirin (Halfprin) 81 mg PO DAILY [facility] Last Admin: 05/20/19 08:09 Dose: 81 mg Clindamycin HCl (Cleocin) 450 mg PO Q8H [facility] Last Admin: 05/20/19 07:18 Dose: 450 mg Clonazepam (Klonopin) 2 mg PO Q6HR PRN PRN Reason: Anxiety Last Admin: 05/19/19 21:14 Dose: 2 mg Lisinopril/HCTZ (Lisinopril-Hctz 10-12.5 Mg) 2 tab PO DAILY [facility] Last Admin: 05/20/19 08:09 Dose: 2 tab Metoprolol Tartrate (Lopressor) 75 mg PO BID [facility] Last Admin: 05/20/19 08:10 Dose: 75 mg Morphine Sulfate (Morphine) 2 mg IVPUSH Q2H PRN PRN Reason: Chest Pain Stop: 05/20/19 13:35 Last Admin: 05/19/19 19:35 Dose: 2 mg Ondansetron HCl (Zofran) 4 mg IVPUSH Q4H PRN PRN Reason: Nausea Pantoprazole Sodium (Protonix) 40 mg PO DAILY [facility] Last Admin: 05/20/19 08:10 Dose: 40 mg Zolpidem Tartrate 5 (Mg Tablet) 1 each PO BEDTIME PRN PRN Reason: Insomnia Sodium Chloride (Saline Flush) 2.5 ml FLUSH ASDIRECTED PRN PRN Reason: Keep Vein Open Discontinued Medications Amlodipine Besylate (Norvasc) 10 mg PO ONETIME ONE Stop: 05/19/19 14:19 Last Admin: 05/19/19 14:27 Dose: 10 mg Pantoprazole Sodium 40 mg/ (Sodium Chloride) 10 mls @ 300 mls/hr IV ONETIME ONE Stop: 05/19/19 13:34 Last Admin: 05/19/19 14:28 Dose: 300 mls/hr Sodium Chloride (Normal Saline) 1,000 mls @ 125 mls/hr IV ASDIRECTED [facility] Last Admin: 05/20/19 06:01 Dose: 125 mls/hr Lorazepam (Ativan) 1 mg PO BEDTIME ONE Stop: 05/20/19 00:00 Last Admin: 05/20/19 00:25 Dose: 1 mg Metoprolol Tartrate (Lopressor) 75 mg PO TID [facility] Stop: 05/19/19 23:00 Last Admin: 05/19/19 21:12 Dose: 75 mg Nitroglycerin (Nitrostat) 0.4 mg SL Q5M PRN PRN Reason: Chest Pain Last Admin: 05/19/19 12:35 Dose: 0.4 mg Non-Formulary Medication (Clonazepam) 1 tab PO Q6HR PRN PRN Reason: Anxiety Non-Formulary Medication (Metoprolol Tartrate) 75 mg PO TID [facility] Last Admin: 05/19/19 15:05 Dose: Not Given
== END 2019-05-20 12:08 | disposition home or self-care (01) ==
LOC: MW.ED 11:51 → MW.MS 13:11
PROVIDERS: ADMIT Student in an Organized Health Care Education/Training Program; ATTEND Student in an Organized Health Care Education/Training Program
DX: R07.89 Other chest pain (principal); R04.0 Epistaxis; I10 Essential (primary) hypertension; I48.91 Unspecified atrial fibrillation; K21.9 Gastro-esophageal reflux disease without esophagitis; K50.919 Crohn's disease, unspecified, with unspecified complications; F41.9 Anxiety disorder, unspecified; F32.9 Major depressive disorder, single episode, unspecified; F17.210 Nicotine dependence, cigarettes, uncomplicated; M06.9 Rheumatoid arthritis, unspecified; Z79.82 Long term (current) use of aspirin; Z79.899 Other long term (current) drug therapy
CPT/HCPCS: 36415; 71045; 80053; 80061; 80305; 81001; 83036; 84443; 84484; 85025; 85610; 85730; 93005; 99285; A9270; C9113; J2270; J7040; J7050; 30901; 96361; 96374; 96375; 96376; 99284; G0378

== ENCOUNTER 2019-07-17 22:33 | Emergency (ER) | payer MEDICARE ==
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
[2019-07-17] MEDS: Sodium Chloride 0.9% 1,000 ML IV ONE (23:45)
[2019-07-17] MEDS: HYDROmorphone 1 MG/ML Syringe IVPUSH ONE (23:46)
[2019-07-17 23:47] LABS: BLOOD UREA NITROGEN,BUN 11 mg/dL (7.0-18.0); CHLORIDE,CL 109 mmol/L (98-107); GLUCOSE RANDOM 108 mg/dL (74-106); LIPASE 168 U/L (73-393); POTASSIUM,K 3.8 mmol/L (3.5-5.1); SODIUM,NA 146 mmol/L (136-145)
[2019-07-18] MEDS: Sodium Chloride 0.9% 1,000 ML IV ONE ×2 (01:45→03:48)
[2019-07-18] MEDS: HYDROmorphone 1 MG/ML Syringe IVPUSH ONE (03:49)
[2019-07-18] MEDS: Ondansetron 4 MG/2 ML SDV IVPUSH ONE (03:49)
--- NOTE | 2019-07-18 04:49 | CT ---
INDICATION: Abdominal pain TECHNIQUE: CT abdomen and pelvis without contrast. COMPARISON: Abdomen and pelvis CT 09/15/2018 FINDINGS: Lower chest: Unremarkable. Liver: Normal in size and attenuation. No masses. Gallbladder and bile ducts: Status post cholecystectomy. Pancreas: Unremarkable. No mass or inflammation. Spleen: Normal in size. No masses. Adrenal glands: Normal in size. No nodules. Kidneys: Normal in size. No masses, stones, or hydronephrosis. GI tract: Stomach is unremarkable. There are some small bowel loops proximally which are borderline in size although without a well-defined transition point. Suspected this more likely represents peristaltic effect. No focal inflammation. Vasculature: Unremarkable. Pelvis: Status posthysterectomy. Bladder unremarkable. Bones: Degenerative disc disease lumbar spine. IMPRESSION: 1. No evidence of nephrolithiasis or hydronephrosis. 2. Small segments of borderline small diameter. Suspect this is more likely within physiologic limits although the differential would include a minimal enteritis. Please note that all CT scans at this facility use dose modulation, iterative reconstruction, and/or weight-based dosing when appropriate to reduce radiation dose to as low as reasonably achievable. Dictated by Uri Aguilar MD @ Jul 18 2019 4:38AM Signed by Dr. Uri Aguilar @ Jul 18 2019 4:48AM
[2019-07-18 05:12] VITALS: BP 158/100; PULSE 71
== END 2019-07-18 05:20 | disposition home or self-care (01) ==
LOC: MW.ED 22:33
DX: K50.919 Crohn's disease, unspecified, with unspecified complications (principal); K52.9 Noninfective gastroenteritis and colitis, unspecified; I10 Essential (primary) hypertension; I48.91 Unspecified atrial fibrillation; K21.9 Gastro-esophageal reflux disease without esophagitis; M06.9 Rheumatoid arthritis, unspecified; F41.9 Anxiety disorder, unspecified; F32.9 Major depressive disorder, single episode, unspecified; Z90.49 Acquired absence of other specified parts of digestive tract; F17.210 Nicotine dependence, cigarettes, uncomplicated; Z88.8 Allergy status to other drugs, medicaments and biological substances; Z88.1 Allergy status to other antibiotic agents; Z79.899 Other long term (current) drug therapy; Z79.82 Long term (current) use of aspirin
CPT/HCPCS: 36415; 74176; 80053; 83690; 85025; 96361; 96374; 96375; 96376; 99284; J1170; J2405; J7030

== ENCOUNTER 2019-08-11 23:05 | Emergency (ER) | payer MEDICARE ==
[2019-08-12] MEDS ORDERED: Ondansetron 4 MG/2 ML SDV IVPUSH ONE (00:38)
[2019-08-12] MEDS ORDERED: Sodium Chloride 0.9% 1,000 ML IV ONE (00:38)
[2019-08-12] MEDS ORDERED: Morphine 4 MG/ML Syringe IVPUSH ONE ×4 (00:44→09:30)
[2019-08-12 01:34] LABS: CARBON DIOXIDE,CO2 30.9 mmol/L (21.0-32.0); POTASSIUM,K 4.2 mmol/L (3.5-5.1)
[2019-08-12] MEDS ORDERED: Iopamidol 755 MG/ML 500 ML Multipack Bottle IVPUSH ONE (02:03)
--- NOTE | 2019-08-12 02:29 | CT ---
INDICATION: Abdominal pain. History of Crohn`s disease TECHNIQUE: CT abdomen and pelvis acquired with IV contrast. 100 mL of Isovue 370 administered. COMPARISON: 07/18/19 and 09/15/2018 FINDINGS: Lower chest: Unremarkable. Liver: A subcentimeter anterior left hepatic low-density lesion which could represent a cyst. Spleen: Mild splenomegaly measuring 13.7 cm craniocaudally. Pancreas: Unremarkable. Gallbladder and bile ducts: Cholecystectomy. Intra and extrahepatic biliary dilatation again seen, mildly greater than expected for a postcholecystectomy state. Adrenal glands: Unremarkable. Kidneys: No hydronephrosis. Multifocal left renal scarring. Sub centimeter posterior left renal and inferior right renal low-density lesions again seen, too small to characterize. GI tract: No bowel obstruction. Mild wall prominence in some jejunal segments could be within physiologic limits. The appendix is not seen. Few colonic diverticula without diverticulitis. Vascular structures: Atherosclerotic changes. Lymph nodes: Several shotty subcentimeter upper abdominal lymph nodes, nonspecific. No abnormally enlarged lymph nodes. Miscellaneous: No significant free fluid or free air. Pelvic Organs: Hysterectomy. No discrete bladder abnormality seen. Bones: No significant change. IMPRESSION: No evidence of appendicitis, diverticulitis or bowel obstruction. Mild wall prominence in jejunal segments may be within physiologic limits, however correlate clinically to exclude enteritis. Biliary dilatation which is greater than expected for a postcholecystectomy state, again seen. Correlate clinically. Mild splenomegaly. Dictated by Blade Laboy MD @ 08/12/2019 2:26:59 AM Please note that all CT scans at this facility use dose modulation, iterative reconstruction, and/or weight-based dosing when appropriate to reduce radiation dose to as low as reasonably achievable. Dictated by: Blade Laboy MD @ 08/12/2019 02:27:02 (Electronically Signed)
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
[2019-08-12] MEDS ORDERED: Piperacillin/Tazobactam 3.375 GM in Sodium Chloride 0.9% 50 ML IV ONE (03:55)
[2019-08-12] MEDS ORDERED: Sodium Chloride 0.9% 1,000 ML IV STA (04:12)
[2019-08-12 09:29] VITALS: BP 140/86; PULSE 63
== END 2019-08-12 10:15 ==
LOC: MW.ED 23:05
DX: K83.8 Other specified diseases of biliary tract (principal); R79.89 Other specified abnormal findings of blood chemistry; I48.91 Unspecified atrial fibrillation; I10 Essential (primary) hypertension; K21.9 Gastro-esophageal reflux disease without esophagitis; F17.210 Nicotine dependence, cigarettes, uncomplicated; Z88.6 Allergy status to analgesic agent; Z88.8 Allergy status to other drugs, medicaments and biological substances; Z88.1 Allergy status to other antibiotic agents; Z88.5 Allergy status to narcotic agent; Z79.82 Long term (current) use of aspirin; Z79.899 Other long term (current) drug therapy; Z90.89 Acquired absence of other organs; Z90.49 Acquired absence of other specified parts of digestive tract
CPT/HCPCS: 36415; 74177; 74177-26; 80053; 81001; 83690; 85025; 87040; 96361; 96365; 96375; 96376; 99283; 99285-25; J2270; J2405; J2543; J7030; J7050; Q9967

== ENCOUNTER 2019-09-15 21:26 | Emergency (ER) | payer MEDICARE ==
[2019-09-15] MEDS ORDERED: Ketorolac 30 MG/ML SDV IVPUSH ONE (21:48)
[2019-09-15] MEDS ORDERED: Morphine 4 MG/ML Syringe IVPUSH ONE (21:49)
[2019-09-15] MEDS ORDERED: Ondansetron 4 MG/2 ML SDV IVPUSH ONE (21:49)
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
[2019-09-16 00:11] VITALS: BP 112/61; PULSE 66
== END 2019-09-16 00:13 | disposition home or self-care (01) ==
LOC: MW.ED 21:26
DX: M10.9 Gout, unspecified (principal); F17.210 Nicotine dependence, cigarettes, uncomplicated; I10 Essential (primary) hypertension; E78.00 Pure hypercholesterolemia, unspecified; Z79.899 Other long term (current) drug therapy; Z88.6 Allergy status to analgesic agent; Z88.1 Allergy status to other antibiotic agents; Z88.8 Allergy status to other drugs, medicaments and biological substances
CPT/HCPCS: 96374; 96375; 99283; J2270; J2405

== ENCOUNTER 2019-09-30 15:03 | Emergency (ER) | payer MEDICARE ==
[2019-09-30 15:17] VITALS: BP 130/90; PULSE 72
[2019-09-30] MEDS ORDERED: Acetaminophen/Codeine 300-30 MG Tab PO ONE (16:13)
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
[2019-09-30] MEDS ORDERED: Lidocaine 5% Oint 35.44 GM Tube TOP ONE (16:18)
== END 2019-09-30 16:31 | disposition home or self-care (01) ==
LOC: MW.ED 15:03
DX: M19.90 Unspecified osteoarthritis, unspecified site (principal); F17.210 Nicotine dependence, cigarettes, uncomplicated; I48.91 Unspecified atrial fibrillation; I10 Essential (primary) hypertension; K21.9 Gastro-esophageal reflux disease without esophagitis; Z88.5 Allergy status to narcotic agent; Z88.8 Allergy status to other drugs, medicaments and biological substances
CPT/HCPCS: 99283; A9270

== ENCOUNTER 2020-01-02 19:45 | Emergency (ER) | payer MEDICARE, MEDICAID ==
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
[2020-01-02] MEDS ORDERED: Sodium Chloride 0.9% 2.5 ML Syringe FLUSH PRN (20:20)
[2020-01-02] MEDS ORDERED: Sodium Chloride 0.9% 10 ML Syringe FLUSH PRN (20:20)
[2020-01-02] MEDS ORDERED: Ondansetron 4 MG/2 ML SDV IVPUSH ONE (20:23)
[2020-01-02] MEDS ORDERED: Sodium Chloride 0.9% 1,000 ML IV ONE (20:23)
[2020-01-02] MEDS ORDERED: Morphine 2 MG/ML Syringe IVPUSH ONE (20:25)
[2020-01-02] MEDS ORDERED: Dicyclomine 10 MG Cap PO ONE (20:30)
[2020-01-03 04:28] VITALS: BP 179/110; PULSE 97
== END 2020-01-02 22:03 | disposition home or self-care (01) ==
LOC: MW.ED 19:45
DX: R10.32 Left lower quadrant pain (principal); R10.12 Left upper quadrant pain; I10 Essential (primary) hypertension; I48.91 Unspecified atrial fibrillation; K21.9 Gastro-esophageal reflux disease without esophagitis; M06.9 Rheumatoid arthritis, unspecified; F41.9 Anxiety disorder, unspecified; F31.9 Bipolar disorder, unspecified; Z87.19 Personal history of other diseases of the digestive system; Z90.49 Acquired absence of other specified parts of digestive tract; Z90.710 Acquired absence of both cervix and uterus; Z90.722 Acquired absence of ovaries, bilateral; Z88.8 Allergy status to other drugs, medicaments and biological substances; Z88.1 Allergy status to other antibiotic agents; Z88.5 Allergy status to narcotic agent; Z79.82 Long term (current) use of aspirin; Z79.899 Other long term (current) drug therapy
CPT/HCPCS: 36415; 80053; 83690; 85025; 96361; 96374; 96375; 99284; A9270; J2270; J2405; J7030; 99283

== ENCOUNTER 2020-01-14 17:53 | Emergency (ER) | payer MEDICARE, MEDICAID ==
[2020-01-14] MEDS ORDERED: Sodium Chloride 0.9% 1,000 ML IV ONE (18:28)
[2020-01-14] MEDS ORDERED: Sodium Chloride 0.9% 2.5 ML Syringe FLUSH PRN ×2 (18:28)
[2020-01-14] MEDS ORDERED: Ondansetron 4 MG/2 ML SDV IVPUSH ONE (18:28)
[2020-01-14] MEDS ORDERED: Sodium Chloride 0.9% 10 ML Syringe FLUSH PRN (18:28)
[2020-01-14] MEDS ORDERED: Dicyclomine 10 MG Cap PO ONE (18:44)
[2020-01-14 19:15] LABS: CARBON DIOXIDE,CO2 22.1 mmol/L (21.0-32.0); POTASSIUM,K 4.3 mmol/L (3.5-5.1)
[2020-01-14] MEDS ORDERED: Morphine 4 MG/ML Syringe IVPUSH ONE (19:33)
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
[2020-01-14] MEDS ORDERED: Dicyclomine 10 MG Cap ONE (21:05)
[2020-01-14 21:09] VITALS: BP 127/68; PULSE 68
[2020-01-14] MEDS ORDERED: Iopamidol 612 MG/ML 100 ML Bottle IVPUSH ONE (21:09)
[2020-01-14] MEDS ORDERED: LORazepam 2 MG/ML SDV IVPUSH ONE (21:18)
--- NOTE | 2020-01-14 21:33 | CT ---
Indication: Pt w/abd pain, diarrhea. Hx of Crohn`s Technique: Postcontrast CT abdomen and pelvis. 100 cc Isovue-300 administered intravenously. Please note that all CT scans at this facility use dose modulation, iterative reconstruction, and/or weight-based dosing when appropriate to reduce radiation dose to as low as reasonably achievable. Comparison: August 12, 2000 Findings: No pleural effusion. No infiltrate. Fatty infiltration liver. Status post cholecystectomy. No biliary obstruction. Simple cyst within the left hepatic lobe. Normal tapering of the biliary tree. Spleen is normal. Vascular calcifications. Normal pancreas. Stable appearance of the kidneys. No hydronephrosis. Decreased prominence of jejunal wall fold thickening compared to the prior study. No inflammatory changes or adenopathy. No free air or free fluid. No abscess. No obstruction. Bladder normal. Degenerative changes. Impression: Decreased prominence of jejunal wall thickening compared to the prior examination. No acute inflammatory changes are present on the current study. No evidence of terminal ileitis. Status post cholecystectomy. Improved appearance of the biliary tree since prior study. Stable appearance of the spleen. Please note that all CT scans at this facility use dose modulation, iterative reconstruction, and/or weight-based dosing when appropriate to reduce radiation dose to as low as reasonably achievable. Dictated by Timothy Joyce MD @ Jan 14 2020 9:19PM Signed by Dr. Timothy Joyce @ Jan 14 2020 9:31PM
== END 2020-01-14 21:58 | disposition home or self-care (01) ==
LOC: MW.ED 17:53
DX: R10.84 Generalized abdominal pain (principal); G89.29 Other chronic pain; I10 Essential (primary) hypertension; I48.91 Unspecified atrial fibrillation; K21.9 Gastro-esophageal reflux disease without esophagitis; M06.9 Rheumatoid arthritis, unspecified; F17.210 Nicotine dependence, cigarettes, uncomplicated; Z79.82 Long term (current) use of aspirin; Z79.899 Other long term (current) drug therapy; Z88.8 Allergy status to other drugs, medicaments and biological substances; Z88.5 Allergy status to narcotic agent; Z90.49 Acquired absence of other specified parts of digestive tract
CPT/HCPCS: 36415; 74177; 80053; 83690; 85025; 96361; 96374; 96375; 99284; A9270; J2270; J2405; J7030; Q9967; 99283

== ENCOUNTER 2020-02-05 02:51 | Emergency (ER) | payer MEDICARE, MEDICAID ==
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
[2020-02-05] MEDS ORDERED: Sodium Chloride 0.9% 2.5 ML Syringe FLUSH PRN (03:19)
[2020-02-05] MEDS ORDERED: Sodium Chloride 0.9% 10 ML Syringe FLUSH PRN (03:19)
[2020-02-05] MEDS ORDERED: Acetaminophen/Codeine 300-30 MG Tab PO ONE (03:20)
[2020-02-05] MEDS ORDERED: ClonazePAM 0.5 MG Tab PO ONE ×2 (03:23→03:58)
[2020-02-05] MEDS ORDERED: Omeprazole 20 MG Cap.CR PO ONE (03:23)
[2020-02-05] MEDS ORDERED: Clindamycin HCl 150 MG Cap PO ONE (03:24)
[2020-02-05] MEDS ORDERED: Lisinopril/Hydrochlorothiazide 10-12.5 MG Tab PO ONE (03:25)
[2020-02-05] MEDS ORDERED: Dicyclomine 10 MG Cap PO ONE (03:26)
[2020-02-05 04:05] LABS: CARBON DIOXIDE,CO2 21.2 mmol/L (21.0-32.0); POTASSIUM,K 3.5 mmol/L (3.5-5.1)
[2020-02-05] MEDS ORDERED: Metoclopramide 10 MG/2 ML SDV IVPUSH ONE (04:15)
[2020-02-05] MEDS ORDERED: Alum Hydrox/Mag Hydrox/Simeth 15 ML, Lidocaine 2% 5 ML PO ONE ×2 (04:21)
[2020-02-05] MEDS ORDERED: Sodium Chloride 0.9% 500 ML IV SCH (04:30)
[2020-02-05 05:05] VITALS: BP 137/104; PULSE 88
== END 2020-02-05 05:00 | disposition home or self-care (01) ==
LOC: MW.ED 02:51
DX: K50.90 Crohn's disease, unspecified, without complications (principal); I48.91 Unspecified atrial fibrillation; E78.00 Pure hypercholesterolemia, unspecified; I10 Essential (primary) hypertension; K21.9 Gastro-esophageal reflux disease without esophagitis; M19.90 Unspecified osteoarthritis, unspecified site; F41.9 Anxiety disorder, unspecified; Z88.6 Allergy status to analgesic agent; Z88.5 Allergy status to narcotic agent; Z91.09 Other allergy status, other than to drugs and biological substances; Z79.82 Long term (current) use of aspirin; Z79.899 Other long term (current) drug therapy
CPT/HCPCS: 36415; 80053; 83690; 85025; 96374; 99283; 99284-25; A9270-GY; J2765

== ENCOUNTER 2020-03-19 04:57 | Emergency (ER) | payer MEDICAID, MEDICARE ==
[2020-03-19] MEDS ORDERED: Famotidine 20 MG/2 ML SDV IVPUSH ONE (05:33)
[2020-03-19] MEDS ORDERED: Morphine 4 MG/ML Syringe IVPUSH ONE (05:33)
[2020-03-19] MEDS ORDERED: Sodium Chloride 0.9% 10 ML Syringe FLUSH PRN (05:33)
[2020-03-19] MEDS ORDERED: Sodium Chloride 0.9% 2.5 ML Syringe FLUSH PRN (05:33)
[2020-03-19] MEDS ORDERED: Ketorolac 15 MG/ML SDV IVPUSH ONE (05:33)
[2020-03-19] MEDS ORDERED: Ondansetron 4 MG/2 ML SDV IVPUSH ONE (05:34)
[2020-03-19] MEDS ORDERED: Dicyclomine 10 MG Cap PO ONE (05:35)
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
[2020-03-19 06:24] LABS: CARBON DIOXIDE,CO2 24.6 mmol/L (21.0-32.0); POTASSIUM,K 3.9 mmol/L (3.5-5.1)
--- NOTE | 2020-03-19 07:24 | CT ---
INDICATION: Evaluate for SBO. History of Crohn`s disease with multiple abdominal surgeries and prior bowel obstructions. Abdominal distention and pain, no bowel movement today, nausea but no vomiting. TECHNIQUE: CT of the abdomen and pelvis without intravenous contrast. Coronal and sagittal reconstructions. COMPARISON: CT of the abdomen and pelvis with IV contrast 01/14/2020. FINDINGS: The stomach and duodenum are mildly distended. Otherwise no bowel dilation or evidence of obstruction. Moderate amount of formed stool throughout the colon. The appendix is not identified. No intraperitoneal free air or fluid. Few stable small low-attenuation lesions in the liver which most likely represent benign cysts or hemangiomas. Cholecystectomy. Stable mild dilation of the common bile duct most likely related to post cholecystectomy state. The unenhanced spleen, pancreas, and adrenal glands are normal in appearance. No hydronephrosis. No obstructing urinary calculi. The bladder is normal in appearance. Hysterectomy. Aortic vascular calcifications. No lymphadenopathy. Degenerative changes of the spine. Two stable small noncalcified pulmonary nodules in the lingula measuring up to 5 mm (series 202 images 3 and 6). 3 mm noncalcified pulmonary nodule in the left lower lobe not definitely seen previously (image 11). IMPRESSION: 1. Mild distention of the stomach and duodenum. No other evidence of bowel obstruction. No definite findings of bowel inflammation on this noncontrast exam. Moderate amount of stool throughout the colon. 2. No other acute findings in the abdomen or pelvis. 3. Small noncalcified pulmonary nodules in the left lung base measuring up to 5 mm. These could be further evaluated with nonemergent CT of the chest. Please note that all CT scans at this facility use dose modulation, iterative reconstruction, and/or weight-based dosing when appropriate to reduce radiation dose to as low as reasonably achievable. Dictated by Hanh Hanley MD @ Mar 19 2020 7:06AM Signed by Dr. Hanh Hanley @ Mar 19 2020 7:23AM
[2020-03-19] MEDS ORDERED: Haloperidol Lactate 5 MG/ML SDV IM ONE (07:42)
[2020-03-19] MEDS ORDERED: HYDROmorphone 2 MG/ML Syringe IVPUSH ONE (08:25)
[2020-03-19 08:34] VITALS: BP 124/78; PULSE 95
== END 2020-03-19 08:38 | disposition home or self-care (01) ==
LOC: MW.ED 04:57
DX: K50.919 Crohn's disease, unspecified, with unspecified complications (principal); E86.0 Dehydration; I10 Essential (primary) hypertension; I48.91 Unspecified atrial fibrillation; K21.9 Gastro-esophageal reflux disease without esophagitis; Z88.1 Allergy status to other antibiotic agents; Z88.6 Allergy status to analgesic agent; Z88.8 Allergy status to other drugs, medicaments and biological substances; Z79.82 Long term (current) use of aspirin; Z79.899 Other long term (current) drug therapy
CPT/HCPCS: 36415; 74176; 80053; 83605; 83690; 85025; 93005; 96372; 96374; 96375; 99284; A9270; J1170; J1630; J2270; J2405; J3490

== ENCOUNTER 2020-04-04 17:32 | Emergency (ER) | payer MEDICARE, MEDICAID ==
[2020-04-04] MEDS ORDERED: Morphine 4 MG/ML Syringe IVPUSH ONE (17:58)
[2020-04-04] MEDS ORDERED: Sodium Chloride 0.9% 10 ML Syringe FLUSH PRN (17:58)
[2020-04-04] MEDS ORDERED: Sodium Chloride 0.9% 1,000 ML IV ONE (17:58)
[2020-04-04] MEDS ORDERED: Sodium Chloride 0.9% 2.5 ML Syringe FLUSH PRN (17:58)
[2020-04-04] MEDS ORDERED: Ondansetron 4 MG/2 ML SDV IVPUSH ONE (17:58)
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
[2020-04-04 18:57] LABS: BLOOD UREA NITROGEN,BUN 13 mg/dL (7.0-18.0); CARBON DIOXIDE,CO2 22.2 mmol/L (21.0-32.0); CHLORIDE,CL 105 mmol/L (98-107); GLUCOSE RANDOM 111 mg/dL (74-106); LIPASE 147 U/L (73-393); POTASSIUM,K 4.3 mmol/L (3.5-5.1); SODIUM,NA 141 mmol/L (136-145)
[2020-04-04] MEDS ORDERED: Iopamidol 755 Mg/ML 100 ML Bottle IVPUSH STA (19:52)
--- NOTE | 2020-04-04 20:24 | CT ---
CT abdomen and pelvis Technique: Multiple axial sections were obtained from above the dome of the diaphragm inferiorly through the pubic symphysis. Intravenous contrast was utilized. No oral contrast has been given. Comparison: Prior CT abdomen and pelvis study of 03/19/20. Findings: Small nodule is noted within the lingula measuring about 7 mm. This appears on prior study to measure approximately 6 mm. Recommend repeat chest CT study in one year to confirm stability. Small cyst is noted within the anterior liver measuring 5 mm which is stable. Nothing acute is appreciated within the liver. Surgical clips are seen from previous cholecystectomy. CBD is dilated up to 1.6 cm which is fairly stable from prior exam. Pancreas shows no discrete abnormality. Adrenal glands show no nodule. Kidneys show symmetric contrast enhancement. Small cysts are seen within both kidneys. Aorta shows atherosclerotic calcification without aneurysm. No retroperitoneal adenopathy or mesenteric abnormalities are noted. No pelvic mass or adenopathy is seen. No free fluid or inflammatory change is seen. Appendix not visualized with certainty. No bowel dilatation is seen. No discrete bowel wall thickening is appreciated. Bone window settings were reviewed. Degenerative change is noted within the spine and within the sacroiliac joints. No acute osseous finding is appreciated. Impression: 1. Dilated CBD up to 1.6 cm believed to be fairly stable from prior exam. Prior cholecystectomy. 2. 7 mm nodule within the lingula. Recommend repeat chest CT study in one year to confirm stability. 3. Other findings which appeared to be chronic. Nothing acute is appreciated. Diagnostic code #9 This report was dictated in MDT
[2020-04-04 20:44] VITALS: BP 173/113; PULSE 88
== END 2020-04-04 20:44 | disposition home or self-care (01) ==
LOC: MW.ED 17:32
DX: R10.32 Left lower quadrant pain (principal); R11.2 Nausea with vomiting, unspecified; R74.0 Nonspecific elevation of levels of transaminase and lactic acid dehydrogenase [LDH]; I10 Essential (primary) hypertension; F41.9 Anxiety disorder, unspecified; F31.9 Bipolar disorder, unspecified; K21.9 Gastro-esophageal reflux disease without esophagitis; I48.91 Unspecified atrial fibrillation; F17.210 Nicotine dependence, cigarettes, uncomplicated; Z88.6 Allergy status to analgesic agent; Z88.1 Allergy status to other antibiotic agents; Z88.8 Allergy status to other drugs, medicaments and biological substances; Z79.82 Long term (current) use of aspirin; Z79.899 Other long term (current) drug therapy; Z90.49 Acquired absence of other specified parts of digestive tract; Z90.710 Acquired absence of both cervix and uterus
CPT/HCPCS: 36415; 74177; 80053; 81001; 83690; 85025; 96361; 96374; 96375; 99284; J2270; J2405; J7030; Q9967; 99283

== ENCOUNTER 2020-04-08 18:12 | Emergency (ER) | payer MEDICARE, MEDICAID ==
[2020-04-08] MEDS ORDERED: Aspirin 81 MG Tab.Chew PO ONE (19:16)
[2020-04-08] MEDS ORDERED: Sodium Chloride 0.9% 10 ML Syringe FLUSH PRN (19:16)
[2020-04-08] MEDS ORDERED: Sodium Chloride 0.9% 2.5 ML Syringe FLUSH PRN (19:16)
[2020-04-08] MEDS ORDERED: Sodium Chloride 0.9% 1,000 ML IV ONE (19:16)
[2020-04-08] MEDS ORDERED: Metoprolol Tartrate 5 MG/5 ML SDV IVPUSH ONE (19:22)
[2020-04-08] MEDS: Metoprolol Tartrate 5 MG/5 ML SDV ONE ×2 (19:27→20:01)
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
[2020-04-08] MEDS ORDERED: Metoprolol Succinate 100 MG Tab.ER PO ONE (19:33)
[2020-04-08] MEDS ORDERED: Metoprolol Succinate 50 MG Tab.ER ONE (19:42)
[2020-04-08 19:43] LABS: BLOOD UREA NITROGEN,BUN 19 mg/dL (7.0-18.0); CARBON DIOXIDE,CO2 19.7 mmol/L (21.0-32.0); CHLORIDE,CL 105 mmol/L (98-107); GLUCOSE RANDOM 108 mg/dL (74-106); POTASSIUM,K 3.6 mmol/L (3.5-5.1); SODIUM,NA 140 mmol/L (136-145)
[2020-04-08] MEDS ORDERED: Metoprolol Succinate 50 MG Tab.ER PO ONE (19:59)
[2020-04-08] MEDS ORDERED: LORazepam 1 MG Tab PO ONE (20:05)
--- NOTE | 2020-04-08 20:08 | CR ---
Chest: Portable view of the chest was obtained. Comparison: Prior chest x-ray of 05/19/19. Heart size and mediastinum are within normal limits for portable technique. Lungs are clear with no acute parenchymal change. Bony structure shows nothing acute. Impression: 1. Nothing acute is seen on portable chest x-ray. Diagnostic code #1 This report was dictated in MDT
[2020-04-09 00:26] VITALS: BP 126/85; PULSE 89
== END 2020-04-08 20:30 | disposition home or self-care (01) ==
LOC: MW.ED 18:12
DX: I48.91 Unspecified atrial fibrillation (principal); I10 Essential (primary) hypertension; F32.9 Major depressive disorder, single episode, unspecified; M19.90 Unspecified osteoarthritis, unspecified site; K21.9 Gastro-esophageal reflux disease without esophagitis; F41.9 Anxiety disorder, unspecified; Z88.6 Allergy status to analgesic agent; Z88.1 Allergy status to other antibiotic agents; Z88.5 Allergy status to narcotic agent; Z88.8 Allergy status to other drugs, medicaments and biological substances; Z79.899 Other long term (current) drug therapy; Z79.82 Long term (current) use of aspirin
CPT/HCPCS: 36415; 71045; 80053; 84484; 85025; 85610; 85730; 93005; 96361; 96374; 99285; A9270; J3490; J7030; 99283

== ENCOUNTER 2020-04-09 18:44 | Emergency (ER) | payer MEDICARE, MEDICAID ==
[2020-04-09 19:00] VITALS: BP 116/79; PULSE 82
[2020-04-09] MEDS ORDERED: Lidocaine 5% 700 MG Patch TOP ONE (19:24)
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
== END 2020-04-09 19:30 | disposition left against medical advice (07) ==
LOC: MW.ED 18:44
DX: M54.5 Low back pain (principal); I10 Essential (primary) hypertension; I48.91 Unspecified atrial fibrillation; F41.9 Anxiety disorder, unspecified; F31.9 Bipolar disorder, unspecified; F43.10 Post-traumatic stress disorder, unspecified; K21.9 Gastro-esophageal reflux disease without esophagitis; Z90.49 Acquired absence of other specified parts of digestive tract; Z90.710 Acquired absence of both cervix and uterus; Z88.6 Allergy status to analgesic agent; Z88.8 Allergy status to other drugs, medicaments and biological substances; Z88.1 Allergy status to other antibiotic agents; Z79.899 Other long term (current) drug therapy; Z79.82 Long term (current) use of aspirin
CPT/HCPCS: 99282; 99283

== ENCOUNTER 2020-04-11 10:21 | Emergency (ER) | payer MEDICARE, MEDICAID ==
[2020-04-11] MEDS ORDERED: Acetaminophen/HYDROcodone 325-10 MG Tab PO ONE (10:43)
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
[2020-04-11 11:43] LABS: CARBON DIOXIDE,CO2 20.6 mmol/L (21.0-32.0); POTASSIUM,K 4.6 mmol/L (3.5-5.1)
--- NOTE | 2020-04-11 12:22 | CT ---
CT abdomen and pelvis Technique: Multiple axial sections were obtained from above the dome of the diaphragm inferiorly through the pubic symphysis. Intravenous and oral contrast not utilized. Comparison: Prior CT abdomen and pelvis exam of 04/04/20. Findings: Kidneys show no abnormal calcifications. Ureters show no dilatation. No abnormal calcifications are seen along the course of the ureters. 3 mm nodule is noted within the right middle lobe. This was not included on prior exam. Larger nodule is noted within the lingula measuring approximately 7 mm which is similar to recent study. Noncontrast appearance of the liver shows no discrete abnormality. Spleen appears within normal limits. Adrenal glands show no nodule. Surgical clips are seen from prior cholecystectomy. Common bile duct is slightly prominent which is a stable finding. Pancreas shows no discrete abnormality. Aorta shows atherosclerotic calcification which continues into the iliac vessels. No aneurysm is seen. No retroperitoneal adenopathy is seen. No mesenteric abnormalities are appreciated. No pelvic mass or adenopathy is seen. Appendix not visualized with certainty. No bowel dilatation is seen. No free fluid or inflammatory change is appreciated. Mild increased stool is seen within the colon. Bone window settings were reviewed. Scattered degenerative change within the spine is seen. No acute osseous finding is appreciated. Impression: 1. No renal calculi, ureteral dilatation or ureteral stone is seen. 2. Small nodule within the right middle lobe and lingula. Lingular nodule is seen on prior study. 3. Mild increased stool within the colon. 4. Other findings as noted above which are stable. Nothing acute is appreciated on noncontrast CT study of the abdomen and pelvis. Note: [address] study is recommended to confirm stability of above described chest nodules. Diagnostic code #9 This report was dictated in MDT
[2020-04-11] MEDS ORDERED: Diazepam 2 MG Tab PO ONE (12:37)
[2020-04-11 13:01] VITALS: BP 118/73; PULSE 73
== END 2020-04-11 13:00 | disposition home or self-care (01) ==
LOC: MW.ED 10:21
DX: M54.5 Low back pain (principal); I10 Essential (primary) hypertension; I48.91 Unspecified atrial fibrillation; K21.9 Gastro-esophageal reflux disease without esophagitis; M06.9 Rheumatoid arthritis, unspecified; F41.9 Anxiety disorder, unspecified; F31.9 Bipolar disorder, unspecified; Z98.890 Other specified postprocedural states; Z90.710 Acquired absence of both cervix and uterus; Z79.82 Long term (current) use of aspirin; Z79.899 Other long term (current) drug therapy; Z88.5 Allergy status to narcotic agent; Z88.8 Allergy status to other drugs, medicaments and biological substances; Z88.1 Allergy status to other antibiotic agents
CPT/HCPCS: 36415; 74176; 80048; 81001; 85025; 99284; A9270; 99283

== ENCOUNTER 2020-04-11 15:51 | Emergency (ER) | payer MEDICARE, MEDICAID ==
[2020-04-11] MEDS ORDERED: Aspirin 81 MG Tab.Chew PO ONE (16:17)
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
--- NOTE | 2020-04-11 17:00 | CR ---
Chest: 2 views of the chest were obtained. Comparison: Chest x-ray of 04/08/20. Heart size and mediastinum are normal. Slight atelectasis within the lateral right costophrenic angle is seen. Lungs are clear with no acute parenchymal change. Bony structures are unremarkable. Impression: 1. Slight atelectasis within the lateral right costophrenic angle. 2. Nothing acute is otherwise seen. Diagnostic code #2 This report was dictated in MDT
[2020-04-11 17:37] VITALS: BP 135/80; PULSE 80
== END 2020-04-11 17:33 | disposition home or self-care (01) ==
LOC: MW.ED 15:51
DX: R07.2 Precordial pain (principal); I10 Essential (primary) hypertension; I48.91 Unspecified atrial fibrillation; K21.9 Gastro-esophageal reflux disease without esophagitis; M06.9 Rheumatoid arthritis, unspecified; Z79.899 Other long term (current) drug therapy; Z79.82 Long term (current) use of aspirin; Z88.8 Allergy status to other drugs, medicaments and biological substances; Z88.1 Allergy status to other antibiotic agents; Z88.5 Allergy status to narcotic agent; R10.9 Unspecified abdominal pain; F41.9 Anxiety disorder, unspecified; F31.9 Bipolar disorder, unspecified; Z98.890 Other specified postprocedural states; Z90.710 Acquired absence of both cervix and uterus
CPT/HCPCS: 36415; 71046; 74176; 80048; 81001; 84484; 85025; 93005; 99284; 99285; A9270; 99283

== ENCOUNTER 2020-05-09 00:54 | Emergency (ER) | payer MEDICARE, MEDICAID ==
[2020-05-09] MEDS ORDERED: Prochlorperazine 10 MG/2 ML SDV IVPUSH ONE (01:41)
[2020-05-09] MEDS ORDERED: HYDROmorphone 2 MG/ML Syringe IVPUSH ONE (01:41)
[2020-05-09] MEDS ORDERED: diphenhydrAMINE 50 MG/ML SDV IVPUSH ONE (01:41)
[2020-05-09] MEDS ORDERED: Sodium Chloride 0.9% 1,000 ML IV ONE (01:42)
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
[2020-05-09 02:49] LABS: POTASSIUM,K 3.5 mmol/L (3.5-5.1)
[2020-05-09] MEDS ORDERED: Iopamidol 755 Mg/ML 100 ML Bottle IVPUSH ONE (03:23)
--- NOTE | 2020-05-09 04:06 | CT ---
INDICATION: Pain. Possible small-bowel obstruction. COMPARISON: CT of the abdomen and pelvis without contrast from 04/11/2020. TECHNIQUE: CT examination of the abdomen and pelvis was performed with the uneventful intravenous administration of 100 cc of Isovue 370 while 3 mm thick axial sections were obtained from the lung bases through the pubic symphysis. Oral contrast was not administered. Please note that all CT scans at this facility use dose modulation, iterative reconstruction, and/or weight-based dosing when appropriate to reduce radiation dose to as low as reasonably achievable. FINDINGS: In the abdomen, the liver is seen to have mild intrahepatic ductal dilatation. This is associated with dilatation of the common bile duct to 14 millimeters and surgical clips from cholecystectomy. The findings are consistent with post-cholecystectomy status. A few tiny cysts are again seen scattered throughout the liver. The liver is otherwise normal in appearance. The spleen, pancreas, and adrenals are normal in appearance. There is a subcentimeter cyst in the posterior interpolar left kidney, not evident on the previous noncontrast CT. The kidneys are otherwise normal in appearance. The gallbladder is normal in appearance. The abdominal aorta is normal in caliber with no sign of dilatation. There is no sign of retroperitoneal mass or adenopathy. The stomach, loops of small bowel, and colon in the abdomen are normal in appearance. In the pelvis, the appendix is nonvisualized, but there is no sign of an inflammatory process in the area of the appendix. The loops of small bowel and colon in the pelvis are normal in appearance. The uterus is again seen to be absent and the adnexal regions are normal in appearance. The urinary bladder is normal in appearance. There is no sign of pelvic or inguinal mass or adenopathy. There is no sign of free air or free fluid in the abdomen or pelvis. There is no change in the 5 millimeter noncalcified nodule in the anterior inferior lingula on axial image 5 series 201. The lung bases are otherwise clear. There is no change and minimal posterior subluxation of L3 on L4 with moderate L3-4 disc degenerative disease. The rest of the osseous structures are normal in appearance with the patient`s age. IMPRESSION: No sign of small bowel obstruction or ileus. CT of the abdomen shows stable moderate dilatation of the common bile duct and mild intrahepatic biliary ductal dilatation consistent with post cholecystectomy status. CT of the pelvis again shows changes of hysterectomy. Stable appearance of 5 millimeter noncalcified nodule in the anterior inferior lingula. Please note that all CT scans at this facility use dose modulation, iterative reconstruction, and/or weight-based dosing when appropriate to reduce radiation dose to as low as reasonably achievable. Dictated by Mateo Tang MD @ May 09 2020 3:55AM Signed by Dr. Mateo Tang @ May 09 2020 4:05AM
[2020-05-09 08:08] VITALS: BP 108/79; PULSE 72
== END 2020-05-09 05:40 | disposition home or self-care (01) ==
LOC: MW.ED 00:54
DX: R10.32 Left lower quadrant pain (principal); R11.2 Nausea with vomiting, unspecified; I10 Essential (primary) hypertension; I48.91 Unspecified atrial fibrillation; K21.9 Gastro-esophageal reflux disease without esophagitis; M06.9 Rheumatoid arthritis, unspecified; F41.9 Anxiety disorder, unspecified; F31.9 Bipolar disorder, unspecified; F17.210 Nicotine dependence, cigarettes, uncomplicated; Z88.8 Allergy status to other drugs, medicaments and biological substances; Z88.1 Allergy status to other antibiotic agents; Z88.5 Allergy status to narcotic agent; Z79.899 Other long term (current) drug therapy; Z90.49 Acquired absence of other specified parts of digestive tract
CPT/HCPCS: 36415; 74177; 80053; 81003; 83735; 85025; 96361; 96374; 96375; 99284; J0780; J1170; J1200; J7030; Q9967

== ENCOUNTER 2020-05-14 00:34 | Emergency (ER) | payer MEDICARE, MEDICAID ==
[2020-05-14] MEDS ORDERED: Acetaminophen/HYDROcodone 325-10 MG Tab PO ONE (01:26)
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
[2020-05-14 03:23] VITALS: BP 151/96; PULSE 75
== END 2020-05-14 01:50 | disposition home or self-care (01) ==
LOC: MW.ED 00:34
DX: K50.90 Crohn's disease, unspecified, without complications (principal); L98.9 Disorder of the skin and subcutaneous tissue, unspecified; I10 Essential (primary) hypertension; I48.91 Unspecified atrial fibrillation; K21.9 Gastro-esophageal reflux disease without esophagitis; F41.9 Anxiety disorder, unspecified; F32.9 Major depressive disorder, single episode, unspecified; F17.210 Nicotine dependence, cigarettes, uncomplicated; Z88.6 Allergy status to analgesic agent; Z88.1 Allergy status to other antibiotic agents; Z88.5 Allergy status to narcotic agent; Z79.899 Other long term (current) drug therapy; Z90.49 Acquired absence of other specified parts of digestive tract; Z90.710 Acquired absence of both cervix and uterus
CPT/HCPCS: 99283; A9270; 99282

== ENCOUNTER 2020-08-24 00:54 | Emergency (ER) | payer MEDICARE, MEDICAID ==
[2020-08-24] MEDS ORDERED: Morphine 4 MG/ML Syringe IVPUSH ONE (01:12)
[2020-08-24] MEDS ORDERED: Sodium Chloride 0.9% 1,000 ML IV ONE (01:12)
[2020-08-24] MEDS ORDERED: Ondansetron 4 MG/2 ML SDV IVPUSH ONE (01:12)
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
[2020-08-24 01:42] LABS: BLOOD UREA NITROGEN,BUN 35 mg/dL (7.0-18.0); CARBON DIOXIDE,CO2 24.2 mmol/L (21.0-32.0); CHLORIDE,CL 105 mmol/L (98-107); GLUCOSE RANDOM 108 mg/dL (74-106); POTASSIUM,K 4.6 mmol/L (3.5-5.1); SODIUM,NA 143 mmol/L (136-145)
[2020-08-24] MEDS ORDERED: HYDROmorphone 1 MG/ML Syringe IVPUSH ONE (01:43)
[2020-08-24] MEDS ORDERED: Iopamidol 755 MG/ML 500 ML Multipack Bottle IVPUSH STA (02:04)
--- NOTE | 2020-08-24 02:54 | CT ---
Indication: Crohn`s, abdominal pain. Comparison: 05/09/2020 Technique: CT of the abdomen and pelvis with intravenous contrast. 100 cc of Isovue 370. Findings: Large body habitus. Approximately moderate-severity gastric distention, with large amount of food debris. Cholecystectomy. Mild intra and extrahepatic biliary ductal dilatation. Several tiny low-attenuation lesions in the liver, unchanged, likely tiny cysts the spleen is normal size. Adrenal glands are unremarkable. No definite CT evidence of pancreatitis. The urinary bladder is unremarkable. Post hysterectomy change. No suspicious adnexal mass. No free intraperitoneal air or fluid. No suspicious retroperitoneal, mesenteric lymphadenopathy. Focal areas of cortical scarring in the left kidney. Tiny cyst left kidney. No hydronephrosis. Practices. Atherosclerosis without abdominal aortic aneurysm. The proximal visceral arteries are patent. The portal and hepatic veins are patent. The splenic and mesenteric veins are patent. The renal veins are patent. No inguinal lymphadenopathy. Tiny lung cyst in the azygos esophageal recess. Stable 6 mm lingular nodular opacity. No pleural effusions in the lung bases. No pericardial effusion. No aggressive appearing osseous lesion. Impression: 1. Recurrent or persistent gastric distention with large amount of food debris. Correlate with endoscopy records. 2. Mild to moderate intra and extrahepatic biliary ductal dilatation status post previous cholecystectomy. Please note that all CT scans at this facility use dose modulation, iterative reconstruction, and/or weight-based dosing when appropriate to reduce radiation dose to as low as reasonably achievable. Dictated by Diaz Smith MD @ Aug 24 2020 2:19PM (Electronically Signed)
[2020-08-24 03:40] VITALS: BP 103/70; PULSE 78
== END 2020-08-24 03:10 | disposition home or self-care (01) ==
LOC: MW.ED 00:54
DX: R10.9 Unspecified abdominal pain (principal); I48.91 Unspecified atrial fibrillation; I10 Essential (primary) hypertension; K21.9 Gastro-esophageal reflux disease without esophagitis; Z88.6 Allergy status to analgesic agent; Z88.5 Allergy status to narcotic agent; Z88.1 Allergy status to other antibiotic agents; Z91.048 Other nonmedicinal substance allergy status; Z79.82 Long term (current) use of aspirin; Z79.899 Other long term (current) drug therapy; T80.89XA Other complications following infusion, transfusion and therapeutic injection, initial encounter; M79.631 Pain in right forearm; M19.90 Unspecified osteoarthritis, unspecified site; Z88.8 Allergy status to other drugs, medicaments and biological substances; Z72.0 Tobacco use
CPT/HCPCS: 36415; 74177; 80053; 82550; 84484; 85025; 96374; 96375; 99283; 99284; A9270; J1170; J2270; J2405; J3010; J7030; Q9967

== ENCOUNTER 2020-08-24 14:19 | Emergency (ER) | payer MEDICARE, MEDICAID ==
[2020-08-24] MEDS ORDERED: Acetaminophen/oxyCODONE 325-5 MG Tab PO ONE (15:09)
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
[2020-08-24] MEDS ORDERED: fentaNYL 50 MCG/ML SDV ONE (15:36)
[2020-08-24 15:47] VITALS: BP 130/77; PULSE 67
== END 2020-08-24 16:00 | disposition home or self-care (01) ==
LOC: MW.ED 14:19
DX: T80.89XA Other complications following infusion, transfusion and therapeutic injection, initial encounter (principal); M79.631 Pain in right forearm; I48.91 Unspecified atrial fibrillation; I10 Essential (primary) hypertension; K21.9 Gastro-esophageal reflux disease without esophagitis; M19.90 Unspecified osteoarthritis, unspecified site; Z88.6 Allergy status to analgesic agent; Z88.5 Allergy status to narcotic agent; Z88.1 Allergy status to other antibiotic agents; Z88.8 Allergy status to other drugs, medicaments and biological substances; Z79.82 Long term (current) use of aspirin; Z79.899 Other long term (current) drug therapy; Z72.0 Tobacco use
CPT/HCPCS: 99283; A9270; J3010

== ENCOUNTER 2020-08-25 01:55 | Emergency (ER) | payer MEDICARE, MEDICAID ==
[2020-08-25 02:10] VITALS: BP 139/91; PULSE 82
[2020-08-25] MEDS ORDERED: Acetaminophen/oxyCODONE 325-5 MG Tab PO ONE (02:12)
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
--- NOTE | 2020-08-25 03:48 | CR ---
Indication: Saline extravasation during the CT 1 day ago. Pain Technique: Three views of the right elbow Comparison: None available Findings/Impression: Bones: No acute fracture or dislocation. A small osseous protuberance off of the lateral humeral epicondyle could be related to old trauma. Joint spaces: Unremarkable. Soft tissues: Soft tissue edema in the distal arm, elbow and forearm. Dictated by Blade Laboy MD @ Aug 25 2020 3:45AM Signed by Dr. Blade Laboy @ Aug 25 2020 3:47AM
== END 2020-08-25 03:34 | disposition left against medical advice (07) ==
LOC: MW.ED 01:55
DX: T80.89XA Other complications following infusion, transfusion and therapeutic injection, initial encounter (principal); I48.91 Unspecified atrial fibrillation; I10 Essential (primary) hypertension; K21.9 Gastro-esophageal reflux disease without esophagitis; Z79.899 Other long term (current) drug therapy; Z88.6 Allergy status to analgesic agent; Z88.1 Allergy status to other antibiotic agents; Z88.5 Allergy status to narcotic agent; Z88.8 Allergy status to other drugs, medicaments and biological substances; Z79.82 Long term (current) use of aspirin; M19.90 Unspecified osteoarthritis, unspecified site
CPT/HCPCS: 73080; 99283; A9270; 99282

== ENCOUNTER 2020-08-25 12:01 | Emergency (ER) | payer MEDICARE, MEDICAID ==
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
[2020-08-25 12:18] VITALS: BP 141/96; PULSE 64
== END 2020-08-25 12:50 | disposition left against medical advice (07) ==
LOC: MW.ED 12:01
DX: T80.89XA Other complications following infusion, transfusion and therapeutic injection, initial encounter (principal); I48.91 Unspecified atrial fibrillation; I10 Essential (primary) hypertension; K21.9 Gastro-esophageal reflux disease without esophagitis; M19.90 Unspecified osteoarthritis, unspecified site; Z88.6 Allergy status to analgesic agent; Z88.8 Allergy status to other drugs, medicaments and biological substances; Z88.1 Allergy status to other antibiotic agents; Z88.5 Allergy status to narcotic agent; Z79.82 Long term (current) use of aspirin; Z79.899 Other long term (current) drug therapy
CPT/HCPCS: 99283

== ENCOUNTER 2020-08-26 02:18 | Emergency (ER) | payer MEDICARE, MEDICAID ==
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
[2020-08-26] MEDS ORDERED: Acetaminophen 500 MG Tab PO ONE (02:35)
[2020-08-26 03:09] VITALS: BP 139/86; PULSE 70
== END 2020-08-26 03:07 | disposition home or self-care (01) ==
LOC: MW.ED 02:18
DX: I10 Essential (primary) hypertension (principal); M79.631 Pain in right forearm; I48.91 Unspecified atrial fibrillation; K21.9 Gastro-esophageal reflux disease without esophagitis; M19.90 Unspecified osteoarthritis, unspecified site; Z88.6 Allergy status to analgesic agent; Z88.1 Allergy status to other antibiotic agents; Z88.5 Allergy status to narcotic agent; Z88.8 Allergy status to other drugs, medicaments and biological substances; Z79.82 Long term (current) use of aspirin; Z79.899 Other long term (current) drug therapy
CPT/HCPCS: 99283; 99284

== ENCOUNTER 2020-08-26 16:31 | Emergency (ER) | payer MEDICARE, MEDICAID ==
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
--- NOTE | 2020-08-26 17:34 | CT ---
Indication: Fall. Technique: Multiple contiguous axial images were obtained from the skullbase to the vertex without intravenous contrast enhancement. Please note that all CT scans at this facility use dose modulation, iterative reconstruction, and/or weight-based dosing when appropriate to reduce radiation dose to as low as reasonably achievable. Comparison: November 09, 2018. Findings: The ventricles are symmetric and normal in size and morphology. The basal cisterns are widely patent. No intra-axial or extra-axial hemorrhage is identified. No mass, mass effect or midline shift is seen. Mucosal thickening is identified within the bilateral maxillary sinuses and bilateral ethmoid air cells. The bony calvarium is intact. Impression: Sinusitis. No acute intracranial process. Please note that all CT scans at this facility use dose modulation, iterative reconstruction, and/or weight-based dosing when appropriate to reduce radiation dose to as low as reasonably achievable. Dictated by Rukhsana Oneil MD @ Aug 26 2020 5:32PM Signed by Dr. Rukhsana Oneil @ Aug 26 2020 5:32PM
[2020-08-26 17:41] VITALS: BP 135/90; PULSE 73
--- NOTE | 2020-08-26 17:42 | CT ---
Indication: Patient fell today. Hitting face and head. Technique: Multiple contiguous axial images were obtained through the level of the facial bones. Sagittal and coronal reformatted images were performed. Please note that all CT scans at this facility use dose modulation, iterative reconstruction, and/or weight-based dosing when appropriate to reduce radiation dose to as low as reasonably achievable. Comparison: December 07, 2018. Findings: Mild mucosal thickening is identified within both maxillary sinuses and both ethmoid air cells. The nasal septum is minimally deviated to the right. The zygomas are intact. The bony orbits are intact. The nasal bones are intact. A linear lucency is identified through the lateral left pterygoid plate. This is unchanged. Otherwise, the pterygoid plates are intact. The temporomandibular joints are located. The mandible is intact. Impression: Paranasal sinus disease. No facial bone fracture identified. Please note that all CT scans at this facility use dose modulation, iterative reconstruction, and/or weight-based dosing when appropriate to reduce radiation dose to as low as reasonably achievable. Dictated by Rukhsana Oneil MD @ Aug 26 2020 5:33PM Signed by Dr. Rukhsana Oneil @ Aug 26 2020 5:41PM
--- NOTE | 2020-08-26 17:54 | CT ---
Indication: Fall. Technique: Multiple contiguous axial images were obtained through the level of the cervical spine. Sagittal and coronal reformatted images were performed. Please note that all CT scans at this facility use dose modulation, iterative reconstruction, and/or weight-based dosing when appropriate to reduce radiation dose to as low as reasonably achievable. Comparison: None Findings: Straightening of the normal cervical lordosis is identified. Intervertebral disc space narrowing is identified at C5-C6 and C6-C7. Anterior osteophytes are seen extending from multiple levels. Posterior osteophytes are seen extending from C5-C6-C7. The odontoid is intact. No fracture or subluxation is identified. Uncovertebral joint hypertrophy is identified, mild, greater on the left than the right. Mild paranasal sinus disease is identified. No pneumothorax is identified. No fractures of the upper ribs are identified. Impression: Mild degenerative change. No acute fracture. Please note that all CT scans at this facility use dose modulation, iterative reconstruction, and/or weight-based dosing when appropriate to reduce radiation dose to as low as reasonably achievable. Dictated by Rukhsana Oneil MD @ Aug 26 2020 5:41PM Signed by Dr. Rukhsana Oneil @ Aug 26 2020 5:53PM
== END 2020-08-26 17:57 | disposition left against medical advice (07) ==
LOC: MW.ED 16:31
DX: S00.83XA Contusion of other part of head, initial encounter (principal); I48.91 Unspecified atrial fibrillation; I10 Essential (primary) hypertension; K21.9 Gastro-esophageal reflux disease without esophagitis; M19.90 Unspecified osteoarthritis, unspecified site; Z88.6 Allergy status to analgesic agent; Z88.5 Allergy status to narcotic agent; Z88.1 Allergy status to other antibiotic agents; Z88.8 Allergy status to other drugs, medicaments and biological substances; Z79.82 Long term (current) use of aspirin; Z79.899 Other long term (current) drug therapy; W01.10XA Fall on same level from slipping, tripping and stumbling with subsequent striking against unspecified object, initial encounter; M79.631 Pain in right forearm
CPT/HCPCS: 70450; 70450-26; 70486; 70486-26; 72125; 72125-26; 99282; 99283; 99284; 99284-25

== ENCOUNTER 2020-08-27 07:06 | Emergency (ER) | payer MEDICARE, MEDICAID ==
[2020-08-27] MEDS ORDERED: diphenhydrAMINE 50 MG/ML SDV IVPUSH ONE (08:03)
[2020-08-27] MEDS ORDERED: Sodium Chloride 0.9% 2.5 ML Syringe FLUSH PRN (08:03)
[2020-08-27] MEDS ORDERED: Sodium Chloride 0.9% 10 ML Syringe FLUSH PRN (08:03)
[2020-08-27] MEDS ORDERED: Metoclopramide 10 MG/2 ML SDV IVPUSH ONE (08:03)
[2020-08-27] MEDS ORDERED: Lactated Ringers 1,000 ML IV ONE (08:03)
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
[2020-08-27 09:44] VITALS: BP 134/81; PULSE 83
== END 2020-08-27 09:44 | disposition home or self-care (01) ==
LOC: MW.ED 07:06
DX: S06.0X9A Concussion with loss of consciousness of unspecified duration, initial encounter (principal); G89.29 Other chronic pain; R10.12 Left upper quadrant pain; I48.91 Unspecified atrial fibrillation; I10 Essential (primary) hypertension; K21.9 Gastro-esophageal reflux disease without esophagitis; M06.9 Rheumatoid arthritis, unspecified; Z79.82 Long term (current) use of aspirin; Z79.899 Other long term (current) drug therapy; Z88.8 Allergy status to other drugs, medicaments and biological substances; Z88.5 Allergy status to narcotic agent; Z88.1 Allergy status to other antibiotic agents; W19.XXXA Unspecified fall, initial encounter
CPT/HCPCS: 96374; 96375; 99283; J1200; J2765; J7120

== ENCOUNTER 2020-08-31 01:41 | Emergency (ER) | payer MEDICARE, MEDICAID ==
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
[2020-08-31] MEDS ORDERED: OLANZapine 5 MG Tab PO ONE (02:06)
[2020-08-31 02:08] VITALS: BP 162/122
[2020-08-31] MEDS ORDERED: Acetaminophen 500 MG Tab PO ONE (02:18)
[2020-08-31] MEDS ORDERED: Alum Hydrox/Mag Hydrox/Simeth 15 ML, Lidocaine 2% 5 ML PO ONE ×2 (02:52)
[2020-08-31] MEDS ORDERED: LORazepam 2 MG/ML SDV IM ONE (03:33)
[2020-08-31] MEDS ORDERED: diphenhydrAMINE 50 MG/ML SDV IM ONE (03:33)
[2020-08-31 04:16] VITALS: PULSE 97
[2020-09-03] MEDS ORDERED: OLANZapine 10 MG in Water For Injection, Sterile 2.1 ML IM ONE (00:41)
== END 2020-08-31 04:15 | disposition home or self-care (01) ==
LOC: MW.ED 01:41
DX: G47.00 Insomnia, unspecified (principal); F07.81 Postconcussional syndrome; I10 Essential (primary) hypertension; M19.90 Unspecified osteoarthritis, unspecified site; I48.91 Unspecified atrial fibrillation; Z88.6 Allergy status to analgesic agent; Z88.1 Allergy status to other antibiotic agents; Z88.5 Allergy status to narcotic agent; Z88.8 Allergy status to other drugs, medicaments and biological substances; Z79.82 Long term (current) use of aspirin; Z79.899 Other long term (current) drug therapy
CPT/HCPCS: 96372; 99283; A9270; J1200; J2060

== ENCOUNTER 2020-09-01 23:03 | Emergency (ER) | payer MEDICARE, MEDICAID | END 2020-09-01 23:45 | disposition left against medical advice (07) | LOC: MW.ED 23:03 | DX: Z53.21 Procedure and treatment not carried out due to patient leaving prior to being seen by health care provider (principal) ==

== ENCOUNTER 2020-09-03 00:42 | Emergency (ER) | payer MEDICARE, MEDICAID ==
[2020-09-03] MEDS ORDERED: Acetaminophen/HYDROcodone 325-5 MG Tab PO ONE (00:59)
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
[2020-09-03 02:22] VITALS: BP 170/100; PULSE 94
== END 2020-09-03 02:15 | disposition home or self-care (01) ==
LOC: MW.ED 00:42
DX: G44.309 Post-traumatic headache, unspecified, not intractable (principal); F07.81 Postconcussional syndrome; I48.91 Unspecified atrial fibrillation; I10 Essential (primary) hypertension; K21.9 Gastro-esophageal reflux disease without esophagitis; M06.9 Rheumatoid arthritis, unspecified; Z88.5 Allergy status to narcotic agent; Z88.8 Allergy status to other drugs, medicaments and biological substances; Z88.1 Allergy status to other antibiotic agents; Z79.82 Long term (current) use of aspirin; Z79.899 Other long term (current) drug therapy
CPT/HCPCS: 99284; A9270; 99283

== ENCOUNTER 2020-09-06 01:27 | Emergency (ER) | payer MEDICARE, MEDICAID ==
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
[2020-09-06] MEDS ORDERED: Acetaminophen/HYDROcodone 325-5 MG Tab PO ONE (02:15)
[2020-09-06 02:36] VITALS: BP 133/92; PULSE 90
== END 2020-09-06 02:25 | disposition home or self-care (01) ==
LOC: MW.ED 01:27
DX: F07.81 Postconcussional syndrome (principal); I48.91 Unspecified atrial fibrillation; I10 Essential (primary) hypertension; K21.9 Gastro-esophageal reflux disease without esophagitis; M06.9 Rheumatoid arthritis, unspecified; Z88.6 Allergy status to analgesic agent; Z88.1 Allergy status to other antibiotic agents; Z88.5 Allergy status to narcotic agent; Z88.8 Allergy status to other drugs, medicaments and biological substances; Z79.82 Long term (current) use of aspirin; Z79.899 Other long term (current) drug therapy
CPT/HCPCS: 99283; A9270

== ENCOUNTER 2020-10-02 16:49 | Emergency (ER) | payer MEDICARE, MEDICAID ==
[2020-10-02 16:55] VITALS: BP 128/85; PULSE 83
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
[2020-10-02] MEDS ORDERED: Ondansetron 4 MG/2 ML SDV IVPUSH STA (17:08)
[2020-10-02 17:39] LABS: POTASSIUM,K 4.6 mmol/L (3.5-5.1)
--- NOTE | 2020-10-02 18:15 | CT ---
INDICATION: Fall TECHNIQUE: CT cervical spine without contrast. COMPARISON: None FINDINGS: Vertebral alignment: Alignment is normal. Vertebrae: There are no fractures or suspicious bony lesions. Discs and facet joints: Degenerative changes C4 through T1. Extraspinal findings: Prevertebral soft tissues, visualized airway, and visualized lungs are unremarkable. IMPRESSION: Atraumatic appearance of the cervical spine. Degenerative changes C4 through C7. Please note that all CT scans at this facility use dose modulation, iterative reconstruction, and/or weight-based dosing when appropriate to reduce radiation dose to as low as reasonably achievable. Dictated by Timothy Leblanc MD @ Oct 02 2020 6:12PM Signed by Dr. Timothy Leblanc @ Oct 02 2020 6:14PM
--- NOTE | 2020-10-02 18:17 | CT ---
INDICATION: Fall TECHNIQUE: CT head without contrast. COMPARISON: 08/26/2020 FINDINGS: CSF spaces: Within normal limits for age. Brain parenchyma: The barbosa-white differentiation is normal. No sign of mass, hemorrhage, or midline shift. Skull base and calvarium: Mild pansinus mucosal thickening. The visualized orbits are grossly unremarkable. No skull fractures. IMPRESSION: Atraumatic appearance of the brain. Please note that all CT scans at this facility use dose modulation, iterative reconstruction, and/or weight-based dosing when appropriate to reduce radiation dose to as low as reasonably achievable. Dictated by Timothy Leblanc MD @ Oct 02 2020 6:16PM Signed by Dr. Timothy Leblanc @ Oct 02 2020 6:16PM
== END 2020-10-02 18:39 | disposition left against medical advice (07) ==
LOC: MW.ED 16:49
DX: S00.03XA Contusion of scalp, initial encounter (principal); I48.91 Unspecified atrial fibrillation; I10 Essential (primary) hypertension; K21.9 Gastro-esophageal reflux disease without esophagitis; M06.9 Rheumatoid arthritis, unspecified; Z88.6 Allergy status to analgesic agent; Z88.1 Allergy status to other antibiotic agents; Z88.5 Allergy status to narcotic agent; Z72.0 Tobacco use; Z88.8 Allergy status to other drugs, medicaments and biological substances; Z79.82 Long term (current) use of aspirin; Z79.899 Other long term (current) drug therapy; W01.10XA Fall on same level from slipping, tripping and stumbling with subsequent striking against unspecified object, initial encounter; Y92.009 Unspecified place in unspecified non-institutional (private) residence as the place of occurrence of the external cause
CPT/HCPCS: 36415; 70450; 72125; 80053; 84443; 85025; 85610; 85730; 96374; 99285; J2405; 99283

== ENCOUNTER 2020-10-04 21:04 | Emergency (ER) | payer MEDICARE, MEDICAID ==
[2020-10-04] MEDS ORDERED: Sodium Chloride 0.9% 10 ML Syringe FLUSH PRN (22:34)
[2020-10-04] MEDS ORDERED: fentaNYL 50 MCG/ML SDV IVPUSH ONE (22:34)
[2020-10-04] MEDS ORDERED: Sodium Chloride 0.9% 2.5 ML Syringe FLUSH PRN (22:34)
[2020-10-04] MEDS ORDERED: Sodium Chloride 0.9% 1,000 ML IV ONE (22:35)
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
[2020-10-04 22:54] LABS: CARBON DIOXIDE,CO2 26.3 mmol/L (21.0-32.0); POTASSIUM,K 3.9 mmol/L (3.5-5.1)
[2020-10-04] MEDS ORDERED: Alum Hydrox/Mag Hydrox/Simeth 15 ML, Metoclopramide 5 MG, Lidocaine 2% 5 ML PO ONE ×3 (23:30)
[2020-10-05 00:04] VITALS: BP 162/102; PULSE 82
== END 2020-10-04 23:45 | disposition home or self-care (01) ==
LOC: MW.ED 21:04
DX: R10.9 Unspecified abdominal pain (principal); I48.91 Unspecified atrial fibrillation; I10 Essential (primary) hypertension; K21.9 Gastro-esophageal reflux disease without esophagitis; Z72.0 Tobacco use; Z88.5 Allergy status to narcotic agent; Z88.8 Allergy status to other drugs, medicaments and biological substances; Z88.1 Allergy status to other antibiotic agents; Z79.899 Other long term (current) drug therapy
CPT/HCPCS: 36415; 80053; 83690; 85025; 96374; 99284; A9270; J3010; J7030; 99283

== ENCOUNTER 2020-10-05 10:40 | Emergency (ER) | payer MEDICARE, MEDICAID ==
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
[2020-10-05] MEDS ORDERED: Sodium Chloride 0.9% 1,000 ML IV ONE (10:47)
[2020-10-05] MEDS ORDERED: Sodium Chloride 0.9% 10 ML Syringe FLUSH PRN (10:47)
[2020-10-05] MEDS ORDERED: Sodium Chloride 0.9% 2.5 ML Syringe FLUSH PRN (10:47)
[2020-10-05] MEDS ORDERED: Morphine 4 MG/ML Syringe IVPUSH ONE (10:55)
[2020-10-05] MEDS ORDERED: Ondansetron 4 MG/2 ML SDV IVPUSH ONE (10:55)
[2020-10-05] MEDS ORDERED: Iopamidol 755 MG/ML 500 ML Multipack Bottle IVPUSH ONE (12:11)
[2020-10-05 12:48] LABS: CARBON DIOXIDE,CO2 20.5 mmol/L (21.0-32.0); POTASSIUM,K 3.8 mmol/L (3.5-5.1)
[2020-10-05 13:02] VITALS: PULSE 68
--- NOTE | 2020-10-05 13:09 | CT ---
Indication: Abdominal pain, history of Crohn`s disease Technique: Volumetric multidetector CT images of the abdomen and pelvis were obtained after the administration of intravenous contrast. 100 cc Isovue 370 low osmolar intravenous contrast Comparison: CT abdomen and pelvis August 24, 2020 she Findings: There is basilar atelectasis versus scar. The liver is preserved in attenuation and enhancement with mild reservoir dilatation of the intrahepatic bile ducts. There is a small hypodensity in the anterior right liver lobe too small to characterize. The portal vein is patent. The gallbladder is unremarkable without evidence of radiopaque calculus. Moderate dilatation of the main common bile duct measuring up to 1.8 centimeters. The spleen is normal in enhancement and size. The stomach and duodenum are grossly unremarkable. The pancreas is normal in enhancement without significant atrophy. The adrenal glands are unremarkable. There are simple appearing cystic changes within the left kidney with likely sequela of left renal cortical injury. There is no evidence of obstructive uropathy. The small-bowel is overall decompressed and grossly unremarkable without obvious perienteric inflammation. There is minimal nonspecific fluid seen within the cecum. There is colonic diverticulosis of the sigmoid colon without evidence of diverticulitis. The appendix is not well visualized. There is no significant mesenteric, retroperitoneal, or pelvic sidewall lymph nodes. The aorta is nonaneurysmal. There is no significant atherosclerotic disease appreciated. There is prior hysterectomy, otherwise the pelvic viscera are grossly within normal limits. There is no free fluid or free air. The anterior abdominal wall is intact without significant hernias. The lumbar vertebral body heights are grossly maintained with moderate multilevel degenerative disc disease. There is minimal retrolisthesis of L2 on L3. There is moderate to severe facet arthrosis. Impression: Mild nonspecific fluid seen within the cecum. Otherwise the small bowel is decompressed and unremarkable. Minimal distal colonic diverticulosis without overt diverticulitis. Prior cholecystectomy with reservoir dilatation of the intrahepatic and common bile ducts. Please note that all CT scans at this facility use dose modulation, iterative reconstruction, and/or weight-based dosing when appropriate to reduce radiation dose to as low as reasonably achievable. Dictated by German Sierra MD @ Oct 05 2020 12:59PM Signed by Dr. German Sierra @ Oct 05 2020 1:06PM
[2020-10-05 13:24] VITALS: BP 145/96
== END 2020-10-05 13:24 | disposition home or self-care (01) ==
LOC: MW.ED 10:40
DX: R10.84 Generalized abdominal pain (principal); G89.29 Other chronic pain; I48.91 Unspecified atrial fibrillation; I10 Essential (primary) hypertension; K21.9 Gastro-esophageal reflux disease without esophagitis; Z88.5 Allergy status to narcotic agent; Z88.8 Allergy status to other drugs, medicaments and biological substances; Z88.1 Allergy status to other antibiotic agents; Z79.899 Other long term (current) drug therapy
CPT/HCPCS: 36415; 74177; 80053; 81001; 83690; 85025; 96374; 96375; 99284; J2270; J2405; J7030; Q9967; 99283

== ENCOUNTER 2020-10-09 15:37 | Emergency (ER) | payer MEDICARE, MEDICAID ==
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
[2020-10-09] MEDS ORDERED: Acetaminophen/HYDROcodone 325-10 MG Tab PO ONE (16:20)
[2020-10-09] MEDS ORDERED: Ondansetron 4 MG Tab PO ONE (16:20)
[2020-10-09 17:38] LABS: CARBON DIOXIDE,CO2 17.6 mmol/L (21.0-32.0); POTASSIUM,K 3.6 mmol/L (3.5-5.1)
[2020-10-09 17:43] VITALS: BP 111/69; PULSE 82
== END 2020-10-09 17:42 | disposition home or self-care (01) ==
LOC: MW.ED 15:37
DX: G89.29 Other chronic pain (principal); M54.9 Dorsalgia, unspecified; R10.9 Unspecified abdominal pain; I10 Essential (primary) hypertension; K21.9 Gastro-esophageal reflux disease without esophagitis; M19.90 Unspecified osteoarthritis, unspecified site; Z88.8 Allergy status to other drugs, medicaments and biological substances; Z79.899 Other long term (current) drug therapy; Z90.49 Acquired absence of other specified parts of digestive tract; Z90.710 Acquired absence of both cervix and uterus
CPT/HCPCS: 36415; 80053; 85025; 99284; A9270; 99283

== ENCOUNTER 2020-10-10 17:04 | Emergency (ER) | payer MEDICARE, MEDICAID ==
[2020-10-10] MEDS ORDERED: Ondansetron 4 MG Tab.DIS PO ONE (17:31)
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
[2020-10-10 17:46] VITALS: BP 154/83; PULSE 94
[2020-10-10 18:50] LABS: CARBON DIOXIDE,CO2 20.2 mmol/L (21.0-32.0); POTASSIUM,K 4.2 mmol/L (3.5-5.1)
== END 2020-10-10 18:53 | disposition left against medical advice (07) ==
LOC: MW.ED 17:04
DX: R10.84 Generalized abdominal pain (principal); I48.91 Unspecified atrial fibrillation; I10 Essential (primary) hypertension; K21.9 Gastro-esophageal reflux disease without esophagitis; Z88.5 Allergy status to narcotic agent; Z88.8 Allergy status to other drugs, medicaments and biological substances; Z88.1 Allergy status to other antibiotic agents; Z79.899 Other long term (current) drug therapy
CPT/HCPCS: 36415; 80053; 81003; 83690; 85025; 99284; A9270

== ENCOUNTER 2020-10-14 21:53 | Emergency (ER) | payer MEDICARE, MEDICAID ==
[2020-10-14] MEDS ORDERED: Sodium Chloride 0.9% 1,000 ML IV ONE (23:18)
[2020-10-14] MEDS ORDERED: Sodium Chloride 0.9% 2.5 ML Syringe FLUSH PRN (23:18)
[2020-10-14] MEDS ORDERED: Ondansetron 4 MG/2 ML SDV IVPUSH ONE (23:18)
[2020-10-14] MEDS ORDERED: Pantoprazole 40 MG in Sodium Chloride 0.9% 10 ML IV ONE (23:18)
[2020-10-14] MEDS ORDERED: Sodium Chloride 0.9% 10 ML Syringe FLUSH PRN (23:18)
--- NOTE | 2020-10-15 00:16 | CR ---
INDICATION: Hematemesis TECHNIQUE: Chest and Abdominal radiograph 5 view COMPARISON: None FINDINGS: CHEST: Moderate to severe degradation of image quality noted due to body habitus. Mediastinum: The mediastinum is normal in appearance. The heart silhouette is normal in size and morphology. Lung: Both lungs are unremarkable in appearance. No sign of pleural effusion seen. No pneumothorax is identified. ABDOMEN: Bowel: The bowel gas pattern is normal without evidence of bowel obstruction. Portions of the epigastrium are obscured by metallic brassiere clips and underwire. Soft tissue: No evidence of pneumoperitoneum present. No suspicious calcifications noted. Surgical clips are noted in the right upper quadrant from prior cholecystectomy. Bone: Unremarkable for age. IMPRESSION: 1. Unremarkable appearance of the chest and abdomen. Dictated by James Duckworth MD @ 10/15/2020 12:16:19 AM Dictated by: James Duckworth MD @ 10/15/2020 00:16:22 (Electronically Signed)
[2020-10-15 01:11] LABS: BLOOD UREA NITROGEN,BUN 27 mg/dL (7.0-18.0); CARBON DIOXIDE,CO2 20.6 mmol/L (21.0-32.0); CHLORIDE,CL 110 mmol/L (98-107); GLUCOSE RANDOM 94 mg/dL (74-106); LIPASE 107 U/L (73-393); POTASSIUM,K 3.5 mmol/L (3.5-5.1); SODIUM,NA 144 mmol/L (136-145)
[2020-10-15] MEDS ORDERED: Iopamidol 755 MG/ML 500 ML Multipack Bottle IVPUSH STA (01:56)
[2020-10-15] MEDS ORDERED: Alum Hydrox/Mag Hydrox/Simeth 15 ML, Lidocaine 2% 5 ML PO ONE ×2 (02:21)
--- NOTE | 2020-10-15 02:35 | CT ---
INDICATION: Inflammatory bowel disease exacerbation, bloody stool, abdominal pain TECHNIQUE: CT Abdomen and pelvis with i.v. contrast. Coronal and sagittal reformats were obtained. CONTRAST: 100 mL Isovue 370 COMPARISON: 10/05/2020 FINDINGS: Lower chest: There is a 3 mm nodule present in the right middle lobe on image 7. A stable 6 mm nodule is present in the lingula on image 16. Liver: Scattered small hepatic cysts are present measuring up to 9 mm. Spleen: Unremarkable. Pancreas: Unremarkable. Gallbladder: Previous cholecystectomy noted with mild extrahepatic biliary ductal dilatation seen. The CBD measures 10 mm and has decreased in size compared to prior exam. Kidney: Unremarkable. No kidney or ureteral stones or obstruction seen. Adrenal: Unremarkable. Bowel: There is a gasless density near the ileocecal valve without any apparent obstruction of the terminal ileum. This is most likely due to small bowel contents incompletely mixing with cecal stool. The appendix cannot be identified but there are no inflammatory changes noted in the right lower quadrant. Vascular: Unremarkable. Lymph: Unremarkable. Peritoneum: Unremarkable. No pneumoperitoneum is seen. No significant ascites is noted. Pelvis: The patient is status post prior hysterectomy. Soft tissue: Unremarkable. Bone: Unremarkable for age. IMPRESSIONS: 1. No CT evidence of active or fibro stenotic Crohn`s disease is seen. 2. Small subcentimeter nodules are noted bilaterally. If the patient has a high risk stratification, optional followup Chest CT in 12 months is advised in accordance with the 2017 Revised Fleischner Society Recommendations. Dictated by James Duckworth MD @ 10/15/2020 2:34:57 AM Please note that all CT scans at this facility use dose modulation, iterative reconstruction, and/or weight-based dosing when appropriate to reduce radiation dose to as low as reasonably achievable. Dictated by: James Duckworth MD @ 10/15/2020 02:34:59 (Electronically Signed)
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
[2020-10-15 03:08] VITALS: BP 161/76; PULSE 73
== END 2020-10-15 03:08 | disposition home or self-care (01) ==
LOC: MW.ED 21:53
DX: K62.5 Hemorrhage of anus and rectum (principal); K63.89 Other specified diseases of intestine; I48.91 Unspecified atrial fibrillation; I10 Essential (primary) hypertension; K21.9 Gastro-esophageal reflux disease without esophagitis; Z88.6 Allergy status to analgesic agent; Z88.1 Allergy status to other antibiotic agents; Z88.5 Allergy status to narcotic agent; Z88.8 Allergy status to other drugs, medicaments and biological substances; Z79.899 Other long term (current) drug therapy; Z72.0 Tobacco use
CPT/HCPCS: 36415; 74022; 74177; 80053; 83690; 84484; 85025; 85610; 85730; 86900; 86901; 96374; 96375; 99284; A9270; C9113; J2405; J7030; Q9967

== ENCOUNTER 2020-10-19 08:41 | Emergency (ER) | payer MEDICARE, MEDICAID ==
[2020-10-19] MEDS ORDERED: Sodium Chloride 0.9% 2.5 ML Syringe FLUSH PRN (09:25)
[2020-10-19] MEDS ORDERED: Pantoprazole 40 MG in Sodium Chloride 0.9% 10 ML IV ONE (09:25)
[2020-10-19] MEDS ORDERED: Sodium Chloride 0.9% 10 ML Syringe FLUSH PRN (09:25)
[2020-10-19] MEDS ORDERED: Sodium Chloride 0.9% 1,000 ML IV ONE (09:26)
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
[2020-10-19 10:13] LABS: POTASSIUM,K 3.2 mmol/L (3.5-5.1)
[2020-10-19 10:42] VITALS: BP 111/59; PULSE 74
== END 2020-10-19 10:54 | disposition home or self-care (01) ==
LOC: MW.ED 08:41
DX: K50.919 Crohn's disease, unspecified, with unspecified complications (principal); K92.1 Melena; E86.0 Dehydration; I48.91 Unspecified atrial fibrillation; I10 Essential (primary) hypertension; K21.9 Gastro-esophageal reflux disease without esophagitis; Z88.6 Allergy status to analgesic agent; Z88.1 Allergy status to other antibiotic agents; Z88.5 Allergy status to narcotic agent; Z88.8 Allergy status to other drugs, medicaments and biological substances; Z79.899 Other long term (current) drug therapy; Z72.0 Tobacco use
CPT/HCPCS: 36415; 80053; 81001; 83690; 85025; 96374; 99284; C9113; J7030; 99283

== ENCOUNTER 2020-10-25 20:22 | Emergency (ER) | payer MEDICARE, MEDICAID | END 2020-10-25 21:45 | disposition left against medical advice (07) | LOC: MW.ED 20:22 | DX: Z53.21 Procedure and treatment not carried out due to patient leaving prior to being seen by health care provider (principal) ==

== ENCOUNTER 2020-12-05 13:31 | Emergency (ER) | payer MEDICARE, MEDICAID ==
[2020-12-05] MEDS ORDERED: Sodium Chloride 0.9% 1,000 ML IV ONE (15:17)
[2020-12-05] MEDS ORDERED: Alum Hydrox/Mag Hydrox/Simeth 15 ML, Lidocaine 2% 5 ML PO ONE ×2 (15:22)
[2020-12-05 15:35] LABS: CARBON DIOXIDE,CO2 23.9 mmol/L (21.0-32.0); POTASSIUM,K 3.8 mmol/L (3.5-5.1)
--- NOTE | 2020-12-05 17:06 | CT ---
Indication: Left lower quadrant pain Technique: Volumetric multidetector CT images of the abdomen and pelvis were without the administration of intravenous contrast. Comparison: CT abdomen and pelvis October 15, 2020 Findings: There is minimal bibasilar atelectasis and parenchymal scar. Otherwise the lung bases are clear. The liver is mildly enlarged with minimal hepatic steatosis. There is no focal abnormality. The gallbladder is surgically absent. There is no significant common biliary ductal dilatation or abrupt cut off. The spleen is normal in attenuation and size. The stomach and duodenum are grossly unremarkable. The pancreas is normal in attenuation without significant atrophy. The adrenal glands are unremarkable. There is no evidence of radiopaque calculus or hydronephrosis. There is a moderate amount of stool seen within the proximal colon. There is distal colonic diverticulosis with a somewhat decompressed appearing sigmoid colon. There is no overt pericolonic inflammation however, low-grade inflammatory changes are not entirely excluded. The appendix is unremarkable. There is no significant mesenteric, retroperitoneal, or pelvic sidewall lymph nodes. The aorta is nonaneurysmal. There is no significant atherosclerotic disease appreciated. There is prior hysterectomy again seen. Otherwise the pelvic viscera are grossly within normal limits. There is no free fluid or free air. The anterior abdominal wall is intact without significant hernias. The lumbar vertebral body heights are grossly maintained with minimal retrolisthesis of L3 on L4. Impression: No evidence of radiopaque calculus or obstructive uropathy. Minimal distal colonic diverticulosis of the sigmoid colon. Overall, the distal colon is decompressed. There is no overt pericolonic inflammatory changes however, low-grade inflammation is not entirely excluded. Otherwise, no acute intra-abdominal abnormality is appreciated. Please note that all CT scans at this facility use dose modulation, iterative reconstruction, and/or weight-based dosing when appropriate to reduce radiation dose to as low as reasonably achievable. Dictated by German Sierra MD @ 12/05/2020 5:04:[address] German Sierra @ Dec 05 2020 5:04PM
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
[2020-12-05 17:38] VITALS: BP 167/113; PULSE 99
== END 2020-12-05 17:38 | disposition home or self-care (01) ==
LOC: MW.ED 13:31
DX: R10.9 Unspecified abdominal pain (principal); I10 Essential (primary) hypertension; Z72.0 Tobacco use; Z88.6 Allergy status to analgesic agent; Z88.1 Allergy status to other antibiotic agents; Z88.5 Allergy status to narcotic agent; Z88.8 Allergy status to other drugs, medicaments and biological substances; Z79.899 Other long term (current) drug therapy
CPT/HCPCS: 36415; 74176; 80053; 81001; 85025; 99284; A9270; J7030

== ENCOUNTER 2020-12-12 13:36 | Emergency (ER) | payer MEDICARE, MEDICAID ==
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
[2020-12-12 14:41] VITALS: BP 115/76; PULSE 65
--- NOTE | 2020-12-12 14:49 | PCM.EKG ---
#1 Interpretation EKG Date: 12/12/20 Time: 14:00 Rhythm: NSR Rate (Beats/Min): 60 [place]: Other (Left atrial enlargement) P-Wave: Present QRS: Normal ST-T: Normal QT: Normal
== END 2020-12-12 14:41 | disposition home or self-care (01) ==
LOC: MW.ED 13:36
DX: Z13.9 Encounter for screening, unspecified (principal); I48.91 Unspecified atrial fibrillation; I10 Essential (primary) hypertension; Z88.5 Allergy status to narcotic agent; Z88.1 Allergy status to other antibiotic agents; Z88.8 Allergy status to other drugs, medicaments and biological substances; Z79.899 Other long term (current) drug therapy
CPT/HCPCS: 93005; 99283-25

== ENCOUNTER 2021-01-06 13:22 | Emergency (ER) | payer MEDICARE, MEDICAID ==
[2021-01-06] MEDS ORDERED: Sodium Chloride 0.9% 2.5 ML Syringe FLUSH PRN (13:41)
[2021-01-06] MEDS ORDERED: Sodium Chloride 0.9% 10 ML Syringe FLUSH PRN (13:41)
[2021-01-06] MEDS ORDERED: Ondansetron 4 MG/2 ML SDV IVPUSH ONE (13:42)
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
[2021-01-06 14:18] LABS: BLOOD UREA NITROGEN,BUN 20 mg/dL (7.0-18.0); CARBON DIOXIDE,CO2 20.1 mmol/L (21.0-32.0); CHLORIDE,CL 106 mmol/L (98-107); GLUCOSE RANDOM 150 mg/dL (74-106); POTASSIUM,K 3.2 mmol/L (3.5-5.1); SODIUM,NA 143 mmol/L (136-145)
[2021-01-06 14:22] VITALS: BP 119/72; PULSE 86
--- NOTE | 2021-01-06 14:36 | CR ---
Indication: Atrial fibrillation. Arrhythmia. Technique: Portable AP chest radiograph Comparison: 04/11/2020 Findings: Normal heart and mediastinum. Lungs and pleural spaces clear. No acute or aggressive osseous abnormality. Impression: No acute findings in the chest. Dictated by Jim Coe MD @ 01/06/2021 2:34:[address] Jim Coe @ Jan 06 2021 2:34PM
[2021-01-06] MEDS ORDERED: Acetaminophen 325 MG Tab PO ONE (14:37)
--- NOTE | 2021-01-06 20:33 | PCM.EKG ---
#1 Interpretation EKG Date: 01/06/21 Time: 13:22 Rhythm: NSR Rate (Beats/Min): 137 [place]: Normal P-Wave: Present QRS: Normal ST-T: Normal QT: Prolonged Comparison: Change From Previous EKG (previous on 12/12/20 not tachycardic) EKG Interpretation Comments: Sinus Tachycardia with baseline wander limiting interpretation however no obvious STEMI
== END 2021-01-06 15:07 | disposition left against medical advice (07) ==
LOC: MW.ED 13:22
DX: R07.9 Chest pain, unspecified (principal); I10 Essential (primary) hypertension; Z88.6 Allergy status to analgesic agent; Z88.1 Allergy status to other antibiotic agents; Z88.8 Allergy status to other drugs, medicaments and biological substances; Z53.8 Procedure and treatment not carried out for other reasons
CPT/HCPCS: 36415; 71045; 80053; 83735; 84484; 85025; 85610; 93005; 96374; 99285; A9270; J2405; 99283

== ENCOUNTER 2021-01-31 20:55 | Emergency (ER) | payer MEDICARE, MEDICAID ==
[2021-01-31] MEDS ORDERED: Ibuprofen 600 MG Tab PO ONE (21:36)
[2021-01-31] MEDS ORDERED: diphenhydrAMINE 50 MG/ML SDV IVPUSH ONE (21:37)
[2021-01-31] MEDS ORDERED: Prochlorperazine 10 MG/2 ML SDV IVPUSH ONE (21:37)
[2021-01-31] MEDS ORDERED: Dextrose 5%-Lactated Ringers 1,000 ML IV SCH (21:45)
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
[2021-01-31 23:35] VITALS: BP 117/61; PULSE 91
== END 2021-01-31 23:38 | disposition home or self-care (01) ==
LOC: MW.ED 20:55
DX: G43.909 Migraine, unspecified, not intractable, without status migrainosus (principal); E86.0 Dehydration; E78.00 Pure hypercholesterolemia, unspecified; I10 Essential (primary) hypertension; E66.9 Obesity, unspecified; Z68.30 Body mass index [BMI] 30.0-30.9, adult; Z88.6 Allergy status to analgesic agent; Z88.5 Allergy status to narcotic agent; Z88.1 Allergy status to other antibiotic agents; Z88.8 Allergy status to other drugs, medicaments and biological substances; Z79.899 Other long term (current) drug therapy
CPT/HCPCS: 96374; 96375; 99284; A9270; J0780; J1200; J7121

== ENCOUNTER 2021-02-01 16:39 | Observation (INO) | payer MEDICARE, MEDICAID ==
[2021-02-01] MEDS ORDERED: Sodium Chloride 0.9% 2.5 ML Syringe FLUSH PRN (16:44)
[2021-02-01] MEDS ORDERED: Sodium Chloride 0.9% 10 ML Syringe FLUSH PRN (16:44)
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
[2021-02-01 17:21] LABS: BLOOD UREA NITROGEN,BUN 34 mg/dL (7.0-18.0); CARBON DIOXIDE,CO2 15.5 mmol/L (21.0-32.0); CHLORIDE,CL 109 mmol/L (98-107); GLUCOSE RANDOM 129 mg/dL (74-106); POTASSIUM,K 3.4 mmol/L (3.5-5.1); SODIUM,NA 142 mmol/L (136-145)
[2021-02-01] MEDS: Diltiazem 25 MG/5 ML SDV ONE ×2 (18:00→23:28)
[2021-02-01] MEDS ORDERED: Diltiazem 25 MG/5 ML SDV IVPUSH ONE ×2 (18:12→20:27)
--- NOTE | 2021-02-01 18:12 | CR ---
HISTORY: Chest pain. COMPARISON: 01/06/2021 FINDINGS: A portable erect AP view of the chest was obtained at 17 10 hours. The lungs remain clear. No focal or diffuse infiltrates are present. There is no sign of pneumothorax or rib abnormality to correlate with the history of chest pain. The heart remains normal in size. The mediastinum is normal in appearance. The osseous structures are normal in appearance for the patient`s age. IMPRESSION: Normal portable chest single view. Dictated by Mateo Tang MD @ 02/01/2021 6:10:[address] Mateo Tang @ Feb 01 2021 6:10PM
[2021-02-01] MEDS ORDERED: Diazepam 2 MG Tab PO ONE (18:33)
[2021-02-01] MEDS ORDERED: levETIRAcetam 150 MG in Dextrose 5% in Water 100 ML IV STA ×2 (18:40)
[2021-02-01] MEDS ORDERED: Alum Hydrox/Mag Hydrox/Simeth 15 ML, Metoclopramide 5 MG, Lidocaine 2% 5 ML PO ONE ×3 (18:53)
[2021-02-01] MEDS ORDERED: Acetaminophen/HYDROcodone 325-10 MG Tab PO ONE (18:53)
[2021-02-01] MEDS ORDERED: Potassium Chloride Riders 40 MEQ in Premix Bag 1 BAG IV ONE (20:33)
[2021-02-01] MEDS ORDERED: Diltiazem 100 MG in Sodium Chloride 0.9% 100 ML IV SCH (20:45)
[2021-02-01] MEDS ORDERED: Lactated Ringers 1,000 ML IV SCH (20:45)
[2021-02-01] MEDS: Sodium Chloride 0.9% 1,000 ML IV SCH (21:35)
[2021-02-01] MEDS ORDERED: Ibuprofen 600 MG Tab PO ONE (22:13)
[2021-02-02] MEDS ORDERED: Potassium Chloride 10% 20 MEQ/15 ML Soln 30 ML UD Cup PO ONE (00:23)
[2021-02-02] MEDS: Acetaminophen/HYDROcodone 325-5 MG Tab PO PRN ×3 (00:53→19:02)
[2021-02-02] MEDS: ClonazePAM 1 MG Tab PO PRN ×3 (00:53→19:02)
[2021-02-02] MEDS ORDERED: LORazepam 1 MG Tab PO ONE ×2 (03:00→22:00)
[2021-02-02] MEDS: Sodium Chloride 0.9% 1,000 ML IV SCH ×2 (06:27→18:36)
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
[2021-02-02 08:09] LABS: BLOOD UREA NITROGEN,BUN 35 mg/dL (7.0-18.0); CARBON DIOXIDE,CO2 19.9 mmol/L (21.0-32.0); CHLORIDE,CL 109 mmol/L (98-107); GLUCOSE RANDOM 94 mg/dL (74-106); POTASSIUM,K 4.1 mmol/L (3.5-5.1); SODIUM,NA 142 mmol/L (136-145)
[2021-02-02] MEDS: Heparin Sodium 5,000 Units/ML Vial SUBCUT SCH ×2 (10:56→17:51)
[2021-02-02] MEDS: Metoprolol Tartrate 50 MG Tab PO SCH ×2 (10:58→22:01)
--- NOTE | 2021-02-02 18:36 | CR ---
Indication: Wrist pain Technique: Two-views of the right wrist Comparison: No comparison Findings: Normal alignment. Seen on the lateral view is an ossific density along the dorsal wrist. There is soft tissue swelling present. This may represent age-indeterminate triquetral fracture correlate with site of pain. No erosive change seen. Dictated by Ghazala Ko MD @ 02/02/2021 6:36:[address] Ghazala Ko @ Feb 02 2021 6:36PM
[2021-02-02] MEDS ORDERED: ZOLPIDEM 5 MG PO PRN (21:00)
[2021-02-03] MEDS ORDERED: Acetaminophen/HYDROcodone 325-5 MG Tab PO ONE ×2 (01:03→12:00)
[2021-02-03] MEDS: Acetaminophen/HYDROcodone 325-5 MG Tab PO PRN ×2 (01:15→07:17)
[2021-02-03] MEDS: ClonazePAM 1 MG Tab PO PRN ×2 (01:16→07:18)
[2021-02-03] MEDS: Sodium Chloride 0.9% 1,000 ML IV SCH ×2 (01:21→09:46)
[2021-02-03] MEDS: Heparin Sodium 5,000 Units/ML Vial SUBCUT SCH ×2 (01:30→09:43)
[2021-02-03 07:17] LABS: CARBON DIOXIDE,CO2 21.8 mmol/L (21.0-32.0); POTASSIUM,K 4.5 mmol/L (3.5-5.1)
[2021-02-03 09:43] VITALS: BP 163/98
[2021-02-03] MEDS: Metoprolol Tartrate 50 MG Tab PO SCH (09:44)
[2021-02-03 09:46] VITALS: PULSE 76
--- NOTE | 2021-02-03 13:54 | PCM.DCSUM1 ---
Discharge Summary - Discharge Data Discharge Date: 02/03/21 Discharge Disposition: Home, Self-Care 01 Condition: Good - Referral to Home Health Primary Care Physician: PCP None - Patient Summary/Data Consults: Consultations 02/02/21 08:37 Consult to Physical Therapy [PT Evaluation and Treatment] [CONS] Routine Hospital Course: 55 yo female with pmh of PTSD, atrial fibrillation on ASA, arthritis who presents to the ED with complaints of chest pain, palpitations and shortness of breath. She also reports frequent lighheadedness spells for the past several months that occur while walking. Patient was found to be in atrial fibrillation with HR of 100s-160s. She was given IV diltiazem with improvement in her heart rate and symptoms. Her orthostatic blood pressures were normal. Lab work was noted for normal CBC, bicarb was 13, and creatinine was 1.5. She was treated with IV fluids and her metoprolol was increased from 75 BID to 100mg BID. Her ac niesha kidney injury resolved with a return to normal creatinine. She did report right wrist pain that she was not clear on the timing of symptoms she at one point reported it has been going on for a few a week but then later stated it only occurred after a blood draw was attempted. X-ray of her wrist reported soft tissue swelling, ossific density taryn dorsal wrist which could be age- indeterminate triquetral fracture. She was given norco for pain management of her wrist. She feels ready for discharge today. She was discharged home to follow up with her PCP and cardiology. We did discussed starting anticoagulation but will wait until follow up and continue aspirin. Her wrist was placed in a splint and she is to follow up this week with orthopedics. - Patient Instructions Diet: Regular Diet as Tolerated Activity: As Tolerated Notify Provider of: Fever, Increased Pain, Swelling and Redness, Nausea and/or Vomiting - Discharge Plan Prescriptions/Med Rec: Hydrocodone/Acetaminophen [HYDROcodone-Acetaminophen 5-325 MG] 1 tab PO Q8H PRN #6 PRN Reason: Pain Metoprolol Tartrate 100 mg PO BID #30 tablet Home Medications: Home Meds Lisinopril/Hydrochlorothiazide [Lisinopril-Hctz 20-25 mg Tab] 1 each PO DAILY #5 tablet 02/05/20 [Rx] Dicyclomine [Bentyl] 10 - 20 mg PO QID PRN 04/02/21 [History] Zolpidem [Ambien] 5 mg PO BEDTIME PRN 10/19/20 [History] clonazePAM [Clonazepam] 2 mg PO TID 02/01/21 [History] Hydrocodone/Acetaminophen [HYDROcodone-Acetaminophen 5-325 MG] 1 tab PO Q8H PRN #6 02/03/21 [Rx] Metoprolol Tartrate 100 mg PO BID #30 tablet 02/03/21 [Rx] Patient Handouts: Acetaminophen; Hydrocodone tablets or capsules, Metoprolol tablets - Discharge Summary/Plan Comment DC Time >30 min.: No - Patient Data Vitals - Most Recent: Last Vital Signs Temp 36.8 C 02/03/21 09:00 Pulse 76 02/03/21 09:44 Resp 20 02/03/21 09:00 BP 163/98 H 02/03/21 09:44 Pulse Ox 98 02/03/21 09:50 Orthostatic Blood Pressure [ 127/93 standing for 3 minutes] Orthostatic Blood Pressure [ 142/89 Standing] Orthostatic Blood Pressure [ 118/86 Sitting] Weight - Most Recent: 100.743 kg I&O - Last 24 hours: Intake & Output 02/02/21 02/03/21 02/03/21 22:59 06:59 14:59 Intake Total 1160 4872 Output Total 800 2000 Balance 360 2872 Lab Results - Last 24 hrs: Laboratory Results - last 24 hr 02/03/21 02/03/21 Range/Units 06:25 06:25 WBC 5.02 (4.0-11.0) K/uL RBC 3.94 L (4.30-5.90) M/uL Hgb 12.5 (12.0-16.0) g/dL Hct 37.0 (36.0-46.0) % MCV 93.9 (80.0-98.0) fL MCH 31.7 (27.0-32.0) pg MCHC 33.8 (31.0-37.0) g/dL RDW Std Deviation 50.6 (28.0-62.0) fl RDW Coeff of Abdirahman 15 (11.0-15.0) % Plt Count 184 (150-400) K/uL MPV 10.50 (7.40-12.00) fL Neut % (Auto) 29.9 L (48.0-80.0) % Lymph % (Auto) 47.6 H (16.0-40.0) % [place] % (Auto) 14.1 (0.0-15.0) % Eos % (Auto) 7.8 H (0.0-7.0) % Baso % (Auto) 0.6 (0.0-1.5) % Neut # (Auto) 1.5 (1.4-5.7) K/uL Lymph # (Auto) 2.4 (0.6-2.4) K/uL [place] # (Auto) 0.7 (0.0-0.8) K/uL Eos # (Auto) 0.4 (0.0-0.7) K/uL Baso # (Auto) 0.0 (0.0-0.1) K/uL Nucleated RBC % 0.0 /100WBC Nucleated RBCs # 0 K/uL Sodium 142 (136-145) mmol/L Potassium 4.5 (3.5-5.1) mmol/L Chloride 108 H (98-107) mmol/L Carbon Dioxide 21.8 (21.0-32.0) mmol/L BUN 27 H (7.0-18.0) mg/dL Creatinine 1.0 (0.6-1.0) mg/dL Est Cr Clr Drug Dosing 75.66 mL/min Estimated GFR (MDRD) 57.6 ml/min Glucose 99 (74-106) mg/dL Calcium 7.8 L (8.5-10.1) mg/dL Magnesium 2.1 (1.8-2.4) mg/dL Med Orders - Current: Current Medications Hydrocodone Bitart/Acetaminophen (Acetaminophen/Hydrocodone 325-5 Mg Tab) 1 tab PO TID PRN PRN Reason: Pain Last Admin: 02/03/21 07:17 Dose: 1 tab Documented by: Clonazepam (Clonazepam 1 Mg Tab) 2 mg PO TID PRN PRN Reason: Anxiety Last Admin: 02/03/21 07:18 Dose: 2 mg Documented by: Heparin Sodium (Porcine) (Heparin Sodium 5,000 Units/Ml Vial) 5,000 units SUBCUT Q8H [place] Last Admin: 02/03/21 09:43 Dose: 5,000 units Documented by: Lactated Ringer's (Ringers, Lactated) 1,000 mls @ 999 mls/hr IV ASDIRECTED [place] Sodium Chloride (Normal Saline) 1,000 mls @ 125 mls/hr IV ASDIRECTED [place] Last Admin: 02/03/21 09:46 Dose: 125 mls/hr Documented by: Metoprolol Tartrate (Metoprolol Tartrate 50 Mg Tab) 75 mg PO BID [place] Last Admin: 02/03/21 09:44 Dose: 75 mg Documented by: Zolpidem 5mg 1 each PO BEDTIME PRN PRN Reason: Sleep Sodium Chloride (Sodium Chloride 0.9% 10 Ml Syringe) 10 ml FLUSH ASDIRECTED PRN PRN Reason: Keep Vein Open Sodium Chloride (Sodium Chloride 0.9% 2.5 Ml Syringe) 2.5 ml FLUSH ASDIRECTED PRN PRN Reason: Keep Vein Open Discontinued Medications Hydrocodone Bitart/Acetaminophen (Acetaminophen/Hydrocodone 325-10 Mg Tab) 1 tab PO ONETIME ONE Stop: 02/01/21 18:54 Last Admin: 02/01/21 19:49 Dose: 1 tab Documented by: Hydrocodone Bitart/Acetaminophen (Acetaminophen/Hydrocodone 325-5 Mg Tab) 1 tab PO ONETIME ONE Stop: 02/03/21 01:04 Last Admin: 02/03/21 01:14 Dose: 1 tab Documented by: Hydrocodone Bitart/Acetaminophen (Acetaminophen/Hydrocodone 325-5 Mg Tab) 1 tab PO ONETIME ONE Stop: 02/03/21 12:01 Last Admin: 02/03/21 12:35 Dose: 1 tab Documented by: Al Hydroxide/Mg Hydroxide 15 ml/ Metoclopramide HCl 5 mg/Lidocaine HCl 5 ml 0 ml PO ONETIME ONE Stop: 02/01/21 18:54 Last Admin: 02/01/21 19:46 Dose: 25 each Documented by: Diazepam (Diazepam 2 Mg Tab) 5 mg PO ONETIME ONE Stop: 02/01/21 18:34 Last Admin: 02/01/21 18:40 Dose: 5 mg Documented by: Diltiazem HCl (Diltiazem 25 Mg/5 Ml Sdv) Confirm Administered Dose 25 mg .ROUTE .STK-MED ONE Stop: 02/01/21 17:53 Last Admin: 02/01/21 23:28 Dose: Not Given Documented by: Diltiazem HCl (Diltiazem 25 Mg/5 Ml Sdv) 20 mg IVPUSH ONETIME ONE Stop: 02/01/21 18:13 Last Admin: 02/01/21 18:15 Dose: 20 mg Documented by: Diltiazem HCl (Diltiazem 25 Mg/5 Ml Sdv) 20 mg IVPUSH ONETIME ONE Stop: 02/01/21 20:28 Last Admin: 02/01/21 23:29 Dose: Not Given Documented by: Levetiracetam 150 mg/ Dextrose (/Water) 101.5 mls @ 420 mls/hr IV STAT STA Stop: 02/01/21 18:54 Last Admin: 02/01/21 18:51 Dose: Not Given Documented by: Diltiazem HCl 100 mg/ Sodium (Chloride) 100 mls @ 5 mls/hr IV NOW [place]; Protocol Potassium Chloride 40 meq/ (Premix) 100 mls @ 25 mls/hr IV ONETIME ONE Stop: 02/02/21 00:32 Last Admin: 02/01/21 21:35 Dose: 25 mls/hr Documented by: Ibuprofen (Ibuprofen 600 Mg Tab) 600 mg PO ONETIME ONE Stop: 02/01/21 22:14 Last Admin: 02/01/21 23:26 Dose: 600 mg Documented by: Lorazepam (Lorazepam 1 Mg Tab) 1 mg PO ONETIME ONE Stop: 02/02/21 03:01 Last Admin: 02/02/21 03:23 Dose: 1 mg Documented by: Lorazepam (Lorazepam 1 Mg Tab) 1 mg PO BEDTIME ONE Stop: 02/02/21 22:01 Last Admin: 02/02/21 22:05 Dose: 1 mg Documented by: Potassium Chloride (Potassium Chloride 10% 20 Meq/15 Ml Soln 30 Ml Ud Cup) 40 meq PO ONETIME ONE Stop: 02/02/21 00:24 Last Admin: 02/02/21 00:53 Dose: 40 meq Documented by:
== END 2021-02-03 14:15 | disposition home or self-care (01) ==
LOC: MW.ED 16:39 → MW.MS 22:36
PROVIDERS: ADMIT Internal Medicine; ATTEND Internal Medicine
DX: R07.9 Chest pain, unspecified (principal); I48.0 Paroxysmal atrial fibrillation; F17.210 Nicotine dependence, cigarettes, uncomplicated; R55 Syncope and collapse; E78.00 Pure hypercholesterolemia, unspecified; I10 Essential (primary) hypertension; K21.9 Gastro-esophageal reflux disease without esophagitis; E66.9 Obesity, unspecified; Z20.822 Contact with and (suspected) exposure to COVID-19; Z79.82 Long term (current) use of aspirin; Z88.8 Allergy status to other drugs, medicaments and biological substances; Z88.5 Allergy status to narcotic agent; Z88.1 Allergy status to other antibiotic agents; Z79.899 Other long term (current) drug therapy; Z98.890 Other specified postprocedural states; Z90.49 Acquired absence of other specified parts of digestive tract
CPT/HCPCS: 36415; 71045; 71045-26; 73100-26-RT; 73100-RT; 80048; 80053; 83735; 84484; 85025; 93005; 93010; 96365; 96366; 96372; 96375; 97161-GP; 99217; 99219; 99284; 99285-25; A9270-GY; G0378; J1644; J3480; J3490; J7030; U0002

== ENCOUNTER 2021-02-04 19:11 | Emergency (ER) | payer MEDICARE, MEDICAID ==
[2021-02-04 19:32] VITALS: BP 161/91; PULSE 90
[2021-02-04] MEDS: Acetaminophen/HYDROcodone 325-5 MG Tab PO ONE (19:58)
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
== END 2021-02-04 20:41 | disposition home or self-care (01) ==
LOC: MW.ED 19:11
DX: S62.111A Displaced fracture of triquetrum [cuneiform] bone, right wrist, initial encounter for closed fracture (principal); Z72.0 Tobacco use; Z88.6 Allergy status to analgesic agent; Z88.1 Allergy status to other antibiotic agents; Z88.5 Allergy status to narcotic agent; X58.XXXA Exposure to other specified factors, initial encounter
CPT/HCPCS: 99283; A9270

== ENCOUNTER 2021-02-23 11:04 | Emergency (ER) | payer MEDICARE, MEDICAID ==
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
[2021-02-23] MEDS ORDERED: Ondansetron 4 MG Tab.DIS PO ONE (11:33)
--- NOTE | 2021-02-23 12:12 | CR ---
INDICATION: 2 week history of a cough. Recent more productive cough with green phlegm. TECHNIQUE: Two-view chest. COMPARISON: Portable chest February 01, 2021. FINDINGS: Clear lungs. Normal heart size and pulmonary vascularity. Mild spurring of the mid to lower thoracic spine. Surgical clips within the upper abdomen. IMPRESSION: No acute cardiopulmonary process identified. No significant change other than technique. Dictated by Carlos Mackenzie MD @ 02/23/2021 12:11:[address] Carlos Mackenzie @ Feb 23 2021 12:11PM
[2021-02-23 12:32] LABS: CORONAVIRUS COVID-19 NAA NEGATIVE (NEGATIVE); INFLUENZA A NAA NEGATIVE (NEGATIVE); INFLUENZA B NAA NEGATIVE (NEGATIVE)
[2021-02-23] MEDS ORDERED: Acetaminophen 325 MG Tab PO ONE (12:49)
[2021-02-23] MEDS ORDERED: Benzonatate 100 MG Cap PO ONE (13:05)
[2021-02-23 13:14] LABS: CARBON DIOXIDE,CO2 19.1 mmol/L (21.0-32.0); POTASSIUM,K 3.4 mmol/L (3.5-5.1)
[2021-02-23 13:26] VITALS: BP 98/66; PULSE 72
== END 2021-02-23 13:26 | disposition home or self-care (01) ==
LOC: MW.ED 11:04
DX: J32.1 Chronic frontal sinusitis (principal); I48.91 Unspecified atrial fibrillation; E78.00 Pure hypercholesterolemia, unspecified; I10 Essential (primary) hypertension; E66.9 Obesity, unspecified; Z68.28 Body mass index [BMI] 28.0-28.9, adult; Z20.822 Contact with and (suspected) exposure to COVID-19; Z88.1 Allergy status to other antibiotic agents; Z88.6 Allergy status to analgesic agent; Z88.5 Allergy status to narcotic agent
CPT/HCPCS: 0240U; 36415; 71046; 80053; 85025; 87651; 99283; A9270

== ENCOUNTER 2021-03-21 12:50 | Emergency (ER) | payer MEDICARE, MEDICAID | END 2021-03-21 13:25 | disposition left against medical advice (07) | LOC: MW.ED 12:50 | DX: M25.50 Pain in unspecified joint (principal); Z53.21 Procedure and treatment not carried out due to patient leaving prior to being seen by health care provider ==

== ENCOUNTER 2021-03-21 19:19 | Emergency (ER) | payer MEDICARE, MEDICAID ==
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
[2021-03-21 20:41] LABS: CARBON DIOXIDE,CO2 21.6 mmol/L (21.0-32.0); POTASSIUM,K 3.6 mmol/L (3.5-5.1)
[2021-03-21 21:11] VITALS: BP 121/80; PULSE 87
== END 2021-03-21 21:11 | disposition home or self-care (01) ==
LOC: MW.ED 19:19
DX: M79.89 Other specified soft tissue disorders (principal); T46.6X5A Adverse effect of antihyperlipidemic and antiarteriosclerotic drugs, initial encounter; I48.91 Unspecified atrial fibrillation; E78.00 Pure hypercholesterolemia, unspecified; I10 Essential (primary) hypertension; E66.9 Obesity, unspecified; Z68.28 Body mass index [BMI] 28.0-28.9, adult; Z79.01 Long term (current) use of anticoagulants; Z88.5 Allergy status to narcotic agent; Z88.8 Allergy status to other drugs, medicaments and biological substances; Z88.1 Allergy status to other antibiotic agents; Z88.6 Allergy status to analgesic agent
CPT/HCPCS: 36415; 80053; 81001; 82550; 85025; 99283

== ENCOUNTER 2021-03-24 15:15 | Emergency (ER) | payer MEDICARE, MEDICAID | END 2021-03-24 17:20 | disposition left against medical advice (07) | LOC: MW.ED 15:15 | DX: Z53.21 Procedure and treatment not carried out due to patient leaving prior to being seen by health care provider (principal) ==

== ENCOUNTER 2021-04-05 20:57 | Emergency (ER) | payer MEDICARE, MEDICAID ==
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
[2021-04-05 21:42] VITALS: BP 128/77; PULSE 82
== END 2021-04-05 21:42 | disposition home or self-care (01) ==
LOC: MW.ED 20:57
DX: M06.9 Rheumatoid arthritis, unspecified (principal); I48.91 Unspecified atrial fibrillation; E78.00 Pure hypercholesterolemia, unspecified; I10 Essential (primary) hypertension; Z79.01 Long term (current) use of anticoagulants; Z79.899 Other long term (current) drug therapy; Z88.1 Allergy status to other antibiotic agents; Z88.6 Allergy status to analgesic agent; Z88.5 Allergy status to narcotic agent; Z88.8 Allergy status to other drugs, medicaments and biological substances
CPT/HCPCS: 99283

== ENCOUNTER 2021-04-06 08:24 | Emergency (ER) | payer MEDICARE, MEDICAID ==
[2021-04-06 08:43] VITALS: PULSE 78
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
[2021-04-06 09:20] VITALS: BP 140/85
== END 2021-04-06 09:15 | disposition home or self-care (01) ==
LOC: MW.ED 08:24
DX: M25.50 Pain in unspecified joint (principal); I48.91 Unspecified atrial fibrillation; E78.00 Pure hypercholesterolemia, unspecified; I10 Essential (primary) hypertension; E66.9 Obesity, unspecified; Z79.01 Long term (current) use of anticoagulants; Z79.899 Other long term (current) drug therapy; Z68.29 Body mass index [BMI] 29.0-29.9, adult
CPT/HCPCS: 99283

== ENCOUNTER 2021-04-07 14:14 | Emergency (ER) | payer MEDICARE, MEDICAID ==
[2021-04-07] MEDS ORDERED: Acetaminophen/oxyCODONE 325-5 MG Tab PO ONE (15:10)
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
[2021-04-07 15:55] VITALS: BP 129/93; PULSE 96
--- NOTE | 2021-04-11 19:04 | PCM.EKG ---
#1 Interpretation EKG Date: 04/07/21 Time: 14:27 Rhythm: Other (sinus tachy) Rate (Beats/Min): 109 ST-T: Normal
== END 2021-04-07 15:55 | disposition home or self-care (01) ==
LOC: MW.ED 14:14
DX: Z76.5 Malingerer [conscious simulation] (principal); G89.29 Other chronic pain; I10 Essential (primary) hypertension; E78.00 Pure hypercholesterolemia, unspecified; I48.91 Unspecified atrial fibrillation; E66.9 Obesity, unspecified; Z88.5 Allergy status to narcotic agent; Z88.6 Allergy status to analgesic agent; Z88.2 Allergy status to sulfonamides; Z88.8 Allergy status to other drugs, medicaments and biological substances
CPT/HCPCS: 93005; 99284; A9270

== ENCOUNTER 2021-04-25 19:35 | Observation (INO) | payer MEDICARE, MEDICAID ==
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
[2021-04-25] MEDS: Sodium Chloride 0.9% 2.5 ML Syringe FLUSH PRN ×2 (20:10→21:44)
[2021-04-25] MEDS: Sodium Chloride 0.9% 10 ML Syringe FLUSH PRN ×2 (20:10→21:44)
--- NOTE | 2021-04-25 20:19 | CR ---
INDICATION: Chest pain TECHNIQUE: Chest radiograph 1 view COMPARISON: 03/16/2021 FINDINGS: The sensitivity and specificity of the exam are moderately limited by the patient`s body habitus. Mediastinum: The mediastinum is normal in appearance. The heart silhouette is normal in size and morphology. Lung: Both lungs are unremarkable in appearance. No sign of pleural effusion seen. No pneumothorax is identified. Bone and Soft tissue: Unremarkable for age. IMPRESSION: 1. No acute cardiopulmonary disease is seen. Dictated by: James Duckworth MD @ 04/25/2021 20:17:34 (Electronically Signed)
[2021-04-25] MEDS ORDERED: Ondansetron 4 MG/2 ML SDV IVPUSH ONE (20:37)
[2021-04-25] MEDS ORDERED: Aspirin 81 MG Tab.Chew PO ONE (20:37)
[2021-04-25] MEDS ORDERED: Morphine 4 MG/ML Syringe IVPUSH ONE (20:37)
[2021-04-25] MEDS ORDERED: Lactated Ringers 1,000 ML IV ONE (20:37)
[2021-04-25 20:58] LABS: BLOOD UREA NITROGEN,BUN 45 mg/dL (7.0-18.0); CARBON DIOXIDE,CO2 20.9 mmol/L (21.0-32.0); CHLORIDE,CL 105 mmol/L (98-107); GLUCOSE RANDOM 120 mg/dL (74-106); POTASSIUM,K 3.2 mmol/L (3.5-5.1); SODIUM,NA 142 mmol/L (136-145)
--- NOTE | 2021-04-25 22:26 | CT ---
INDICATION: Abdominal pain TECHNIQUE: CT abdomen and pelvis without contrast. COMPARISON: December 05, 2020 FINDINGS: Lower chest: 4 mm pulmonary nodule in the lingula image 4 series 201, stable. Liver: Unremarkable. Spleen: Unremarkable. Pancreas: Unremarkable. Gallbladder and bile ducts: S/p cholecystectomy. Adrenal glands: Unremarkable. Kidneys: Unremarkable. No kidney or ureteral stones and no hydronephrosis. GI tract: Minimal colonic diverticulosis. Appendix is not seen. No inflammatory changes identified in the right lower Vascular structures: Minimal aortoiliac calcifications. Lymph nodes: Unremarkable. Miscellaneous: Unremarkable. No free air or significant free fluid. Pelvic Organs: Status post hysterectomy. Bones: Unremarkable for age. IMPRESSION: No acute intra-abdominal process identified. 4 mm pulmonary nodule in the lingula. Recommend follow-up per Fleischner society guidelines, as listed below. Minimal colonic diverticulosis. Status post hysterectomy. FLEISCHNER SOCIETY GUIDELINES - SOLID NODULES: SINGLE LOW RISK - nodule less than 6 mm: No routine follow-up. - nodule 6-8 mm: CT at 6-12 months, then consider CT at 18-24 months. - nodule greater than 8 mm: Consider CT at 3 months, PET/CT or tissue sampling. SINGLE HIGH RISK - nodule less than 6 mm: Optional CT at 12 months. - nodule 6-8 mm: CT at 6-12 months, then CT at 18-24 months. - nodule greater than 8 mm: Consider CT at 3 months, PET/CT or tissue sampling. Please note that all CT scans at this facility use dose modulation, iterative reconstruction, and/or weight-based dosing when appropriate to reduce radiation dose to as low as reasonably achievable. Dictated by Beulah Mercado MD @ 04/25/2021 10:24:49 PM (Electronically Signed)
[2021-04-25] MEDS ORDERED: cefTRIAXone 1 GM Vial IVPUSH ONE (22:56)
[2021-04-25] MEDS ORDERED: cefTRIAXone 1 GM in Premix Bag 1 BAG IV ONE (23:06)
[2021-04-26] MEDS ORDERED: Morphine 4 MG/ML Syringe IVPUSH ONE (00:08)
[2021-04-26] MEDS ORDERED: Nitroglycerin 0.4 MG Tab.SL SL PRN (00:09)
[2021-04-26] MEDS ORDERED: Ondansetron 4 MG/2 ML SDV IVPUSH PRN (00:56)
[2021-04-26] MEDS ORDERED: Albuterol/Ipratropium 3.0-0.5 MG/3 ML Neb Soln NEB PRN (00:56)
[2021-04-26] MEDS ORDERED: Acetaminophen 325 MG Tab PO PRN (00:56)
[2021-04-26] MEDS ORDERED: Potassium Chloride 20 MEQ Tab.ER PO ONE (01:03)
[2021-04-26] MEDS: Morphine 2 MG/ML SYRINGE IVPUSH PRN ×6 (01:41→22:29)
[2021-04-26] MEDS: Lactated Ringers 1,000 ML IV SCH ×3 (01:48→23:06)
[2021-04-26] MEDS: Pantoprazole 40 MG in Sodium Chloride 0.9% 10 ML IV SCH ×2 (01:50→08:18)
[2021-04-26 07:08] LABS: CARBON DIOXIDE,CO2 18.6 mmol/L (21.0-32.0); POTASSIUM,K 3.8 mmol/L (3.5-5.1)
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
[2021-04-26] MEDS: cefTRIAXone 1 GM in Premix Bag 1 BAG IV SCH (08:19)
[2021-04-26] MEDS ORDERED: cefTRIAXone 1 GM Vial IVPUSH SCH (09:00)
[2021-04-26] MEDS: Apixaban 5 MG Tab PO SCH ×2 (09:20→22:28)
[2021-04-26] MEDS ORDERED: Acetaminophen/oxyCODONE 325-5 MG Tab PO PRN (13:33)
[2021-04-26] MEDS: methylPREDNISolone Sodium Succinate 40 MG/1 ML SDV IVPUSH SCH (14:41)
--- NOTE | 2021-04-26 20:05 | CR ---
Indication: Bilateral shoulder pain. Technique: Bilateral shoulder 4 views. Comparison: March 18, 2021. Findings: Bones: Alignment is normal. No fractures or bone lesions. Joint spaces: Moderate degenerative changes are most severe in the right AC joint, unchanged from the prior exam. No other specific finding to explain pain. Soft tissues: Unremarkable. Dictated by Landen Orourke MD @ 04/26/2021 8:03:39 PM (Electronically Signed)
[2021-04-26] MEDS ORDERED: Gabapentin 300 MG Cap PO SCH (21:00)
[2021-04-26] MEDS ORDERED: Amitriptyline 25 MG Tab PO SCH (21:00)
[2021-04-26] MEDS ORDERED: atorvaSTATin 40 MG Tab PO SCH (21:00)
[2021-04-26] MEDS ORDERED: LORazepam 1 MG Tab PO ONE (21:08)
[2021-04-27] MEDS: methylPREDNISolone Sodium Succinate 40 MG/1 ML SDV IVPUSH SCH ×2 (03:07→13:34)
[2021-04-27] MEDS: Morphine 2 MG/ML SYRINGE IVPUSH PRN ×4 (03:17→13:34)
[2021-04-27 07:16] LABS: CARBON DIOXIDE,CO2 20.7 mmol/L (21.0-32.0); POTASSIUM,K 3.7 mmol/L (3.5-5.1)
[2021-04-27] MEDS: Pantoprazole 40 MG in Sodium Chloride 0.9% 10 ML IV SCH (10:02)
[2021-04-27] MEDS: cefTRIAXone 1 GM in Premix Bag 1 BAG IV SCH (10:02)
[2021-04-27] MEDS: Apixaban 5 MG Tab PO SCH (10:03)
--- NOTE | 2021-04-27 12:56 | PCM.DCSUM1 ---
Discharge Summary - Discharge Data Discharge Disposition: Home, Self-Care 01 Condition: Stable - Referral to Home Health Primary Care Physician: PCP None - Discharge Plan Home Medications: Home Meds Metoprolol Tartrate 100 mg PO BID #30 tablet 02/03/21 [Rx] Amitriptyline [Elavil] 25 mg PO BEDTIME 03/18/21 [History] Apixaban [Eliquis] 5 mg PO BID #60 tablet 03/18/21 [Rx] Diltiazem HCl [Diltiazem 24Hr Cd] 180 mg PO DAILY #30 cap.er.24h 03/18/21 [Rx] Lisinopril/Hydrochlorothiazide [Lisinopril-Hctz 20-25 mg Tab] 20 - 25 mg PO DAILY 03/18/21 [History] atorvaSTATin [Lipitor] 40 mg PO BEDTIME #30 tablet 03/18/21 [Rx] oxyCODONE HCl/Acetaminophen [Oxycodone-Acetaminophen 5-325] 1 each PO Q8H PRN #21 tablet 03/18/21 [Rx] Gabapentin [Neurontin] 300 mg PO BEDTIME 5 Days #5 cap 04/05/21 [Rx] Patient Handouts: Nonspecific Chest Pain, Adult Forms: ED Department Discharge Referrals: PCP,None [Primary Care Provider] - - Patient Data Vitals - Most Recent: Last Vital Signs Temp 36.3 C 04/27/21 09:00 Pulse 96 04/27/21 09:00 Resp 18 04/27/21 09:00 BP 146/93 H 04/27/21 09:00 Pulse Ox 97 04/27/21 09:00 Weight - Most Recent: 102.603 kg I&O - Last 24 hours: Intake & Output 04/26/21 04/27/21 04/27/21 22:59 06:59 14:59 Intake Total 2228 2184 60 Output Total 0 0 Balance 2228 2184 60 Lab Results - Last 24 hrs: Laboratory Results - last 24 hr 04/27/21 04/27/21 Range/Units 06:40 06:40 WBC 6.03 (4.0-11.0) K/uL RBC 3.91 L (4.30-5.90) M/uL Hgb 12.2 (12.0-16.0) g/dL Hct 34.6 L (36.0-46.0) % MCV 88.5 (80.0-98.0) fL MCH 31.2 (27.0-32.0) pg MCHC 35.3 (31.0-37.0) g/dL RDW Std Deviation 48.4 (28.0-62.0) fl RDW Coeff of Abdirahman 15 (11.0-15.0) % Plt Count 328 (150-400) K/uL MPV 9.10 (7.40-12.00) fL Neut % (Auto) 88.8 H (48.0-80.0) % Lymph % (Auto) 9.3 L (16.0-40.0) % Chester % (Auto) 1.7 (0.0-15.0) % Eos % (Auto) 0.0 (0.0-7.0) % Baso % (Auto) 0.2 (0.0-1.5) % Neut # (Auto) 5.4 (1.4-5.7) K/uL Lymph # (Auto) 0.6 (0.6-2.4) K/uL Chester # (Auto) 0.1 (0.0-0.8) K/uL Eos # (Auto) 0.0 (0.0-0.7) K/uL Baso # (Auto) 0.0 (0.0-0.1) K/uL Nucleated RBC % 0.0 /100WBC Nucleated RBCs # 0 K/uL Sodium 139 (136-145) mmol/L Potassium 3.7 (3.5-5.1) mmol/L Chloride 106 (98-107) mmol/L Carbon Dioxide 20.7 L (21.0-32.0) mmol/L BUN 28 H (7.0-18.0) mg/dL Creatinine 1.1 H (0.6-1.0) mg/dL Est Cr Clr Drug Dosing 67.97 mL/min Estimated GFR (MDRD) 51.4 ml/min Glucose 169 H (74-106) mg/dL Calcium 8.4 L (8.5-10.1) mg/dL Total Bilirubin 0.3 (0.2-1.0) mg/dL AST 25 (15-37) IU/L ALT 41 (14-63) IU/L Alkaline Phosphatase 102 (46-116) U/L Total Protein 7.0 (6.4-8.2) g/dL Albumin 3.2 L (3.4-5.0) g/dL Globulin 3.8 (2.6-4.0) g/dL Albumin/Globulin Ratio 0.8 L (0.9-1.6) Med Orders - Current: Current Medications Acetaminophen (Acetaminophen 325 Mg Tab) 650 mg PO Q4H PRN PRN Reason: Pain (Mild 1-3)/fever Last Admin: 04/26/21 11:04 Dose: 650 mg Documented by: Albuterol/Ipratropium (Albuterol/Ipratropium 3.0-0.5 Mg/3 Ml Neb Soln) 3 ml NEB Q4HRRT PRN PRN Reason: Shortness Of Breath/wheezing Amitriptyline HCl (Amitriptyline 25 Mg Tab) 25 mg PO BEDTIME [facility] Last Admin: 04/26/21 21:57 Dose: 25 mg Documented by: Apixaban (Apixaban 5 Mg Tab) 5 mg PO BID [facility] Last Admin: 04/27/21 10:03 Dose: Not Given Documented by: Atorvastatin Calcium (Atorvastatin 40 Mg Tab) 40 mg PO BEDTIME [place] Last Admin: 04/26/21 22:28 Dose: Not Given Documented by: Gabapentin (Gabapentin 300 Mg Cap) 300 mg PO BEDTIME [place] Last Admin: 04/27/21 03:24 Dose: Not Given Documented by: Pantoprazole Sodium 40 mg/ (Sodium Chloride) 10 mls @ 300 mls/hr IV DAILY [facility] Last Admin: 04/27/21 10:02 Dose: 300 mls/hr Documented by: Ceftriaxone Sodium/Dextrose 1 (gm/ Premix) 50 mls @ 100 mls/hr IV Q24H [place] Last Admin: 04/27/21 10:02 Dose: 100 mls/hr Documented by: Lactated Ringer's (Ringers, Lactated) 1,000 mls @ 100 mls/hr IV ASDIRECTED [facility] Last Admin: 04/26/21 23:06 Dose: 100 mls/hr Documented by: Methylprednisolone Sodium Succinate (Methylprednisolone Sodium Succinate 40 Mg/1 Ml Sdv) 40 mg IVPUSH Q12H [facility] Last Admin: 04/27/21 03:07 Dose: 40 mg Documented by: Morphine Sulfate (Morphine 2 Mg/Ml Syringe) 1 mg IVPUSH Q3H PRN PRN Reason: Pain Last Admin: 04/27/21 10:03 Dose: 1 mg Documented by: Nitroglycerin (Nitroglycerin 0.4 Mg Tab.Sl) 0.4 mg SL Q5M PRN PRN Reason: Chest Pain Ondansetron HCl (Ondansetron 4 Mg/2 Ml Sdv) 4 mg IVPUSH Q4H PRN PRN Reason: Nausea/Vomiting Sodium Chloride (Sodium Chloride 0.9% 10 Ml Syringe) 10 ml FLUSH ASDIRECTED PRN PRN Reason: Keep Vein Open Last Admin: 04/25/21 21:44 Dose: 10 ml Documented by: Sodium Chloride (Sodium Chloride 0.9% 2.5 Ml Syringe) 2.5 ml FLUSH ASDIRECTED PRN PRN Reason: Keep Vein Open Last Admin: 04/25/21 21:44 Dose: 2.5 ml Documented by: Discontinued Medications Aspirin (Aspirin 81 Mg Tab.Chew) 324 mg PO ONETIME ONE Stop: 04/25/21 20:38 Last Admin: 04/25/21 21:21 Dose: 324 mg Documented by: Ceftriaxone Sodium (Ceftriaxone 1 Gm Vial) 1 gm IVPUSH ONETIME ONE Stop: 04/25/21 22:57 Last Admin: 04/25/21 23:05 Dose: Not Given Documented by: Ceftriaxone Sodium (Ceftriaxone 1 Gm Vial) 1 gm IVPUSH DAILY [place] Lactated Ringer's (Ringers, Lactated) 1,000 mls @ 999 mls/hr IV .BOLUS ONE Stop: 04/25/21 21:37 Last Admin: 04/25/21 21:44 Dose: 999 mls/hr Documented by: Ceftriaxone Sodium/Dextrose 1 (gm/ Premix) 50 mls @ 100 mls/hr IV ONETIME ONE Stop: 04/25/21 23:35 Last Admin: 04/25/21 23:21 Dose: 100 mls/hr Documented by: Lorazepam (Lorazepam 1 Mg Tab) 1 mg PO ONETIME ONE Stop: 04/26/21 21:09 Last Admin: 04/26/21 21:57 Dose: 1 mg Documented by: Morphine Sulfate (Morphine 4 Mg/Ml Syringe) 4 mg IVPUSH ONETIME ONE Stop: 04/25/21 20:38 Last Admin: 04/25/21 21:20 Dose: 4 mg Documented by: Morphine Sulfate (Morphine 4 Mg/Ml Syringe) 4 mg IVPUSH ONETIME ONE Stop: 04/26/21 00:09 Last Admin: 04/26/21 00:14 Dose: Not Given Documented by: Morphine Sulfate (Morphine 2 Mg/Ml Syringe) 1 mg IVPUSH Q3H PRN PRN Reason: Pain (severe 7-10) Stop: 04/27/21 00:57 Last Admin: 04/26/21 11:28 Dose: 1 mg Documented by: Ondansetron HCl (Ondansetron 4 Mg/2 Ml Sdv) 4 mg IVPUSH ONETIME ONE Stop: 04/25/21 20:38 Last Admin: 04/25/21 21:20 Dose: 4 mg Documented by: Oxycodone/Acetaminophen (Acetaminophen/Oxycodone 325-5 Mg Tab) 1 tab PO Q6H PRN PRN Reason: Pain Last Admin: 04/26/21 14:41 Dose: 1 tab Documented by: Potassium Chloride (Potassium Chloride 20 Meq Tab.Er) 40 meq PO ONETIME ONE Stop: 04/26/21 01:04 Last Admin: 04/26/21 01:52 Dose: 40 meq Documented by:
[2021-04-27 13:44] VITALS: BP 156/102; PULSE 95
== END 2021-04-27 14:30 | disposition home or self-care (01) ==
LOC: MW.ED 19:35 → MW.MS 22:59
PROVIDERS: ADMIT Student in an Organized Health Care Education/Training Program; ATTEND Student in an Organized Health Care Education/Training Program
DX: R07.89 Other chest pain (principal); R07.2 Precordial pain; I48.91 Unspecified atrial fibrillation; E78.5 Hyperlipidemia, unspecified; I10 Essential (primary) hypertension; N17.9 Acute kidney failure, unspecified; E78.00 Pure hypercholesterolemia, unspecified; K21.9 Gastro-esophageal reflux disease without esophagitis; E66.9 Obesity, unspecified; F17.210 Nicotine dependence, cigarettes, uncomplicated; N39.0 Urinary tract infection, site not specified; E87.6 Hypokalemia; Z20.822 Contact with and (suspected) exposure to COVID-19; Z88.8 Allergy status to other drugs, medicaments and biological substances; Z79.899 Other long term (current) drug therapy; Z90.49 Acquired absence of other specified parts of digestive tract; Z98.890 Other specified postprocedural states
CPT/HCPCS: 36415; 71045; 73030; 74176; 80048; 80053; 80305; 81001; 81025; 83520; 83690; 83735; 84100; 84484; 85025; 85610; 85730; 86256; 87086; 93005; 96374; 99285; A9270; C9113; J0696; J2270; J2405; J2920; J7120; U0002; 87088; 87186

== ENCOUNTER 2021-04-29 04:37 | Emergency (ER) | payer MEDICARE, MEDICAID ==
[2021-04-29] MEDS ORDERED: Sodium Chloride 0.9% 2.5 ML Syringe FLUSH PRN (04:55)
[2021-04-29] MEDS ORDERED: Sodium Chloride 0.9% 10 ML Syringe FLUSH PRN (04:55)
[2021-04-29] MEDS ORDERED: Lactated Ringers 1,000 ML IV ONE (04:55)
[2021-04-29] MEDS ORDERED: Diltiazem 25 MG/5 ML SDV IVPUSH ONE (04:56)
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
[2021-04-29 05:42] LABS: BLOOD UREA NITROGEN,BUN 28 mg/dL (7.0-18.0); CARBON DIOXIDE,CO2 17.9 mmol/L (21.0-32.0); CHLORIDE,CL 109 mmol/L (98-107); GLUCOSE RANDOM 135 mg/dL (74-106); POTASSIUM,K 3.4 mmol/L (3.5-5.1); SODIUM,NA 145 mmol/L (136-145)
--- NOTE | 2021-04-29 05:53 | CR ---
INDICATION: Chest pain TECHNIQUE: AP view of the chest COMPARISON: AP chest radiograph 03/16/2021 FINDINGS: The lungs are clear. There is no sizable pleural effusion or pneumothorax. The cardiomediastinal silhouette is normal. The visualized osseous structures are unremarkable. IMPRESSION: No acute intrathoracic process. Dictated by Esha Mack MD @ 04/29/2021 5:51:14 AM (Electronically Signed)
[2021-04-29 06:17] VITALS: BP 79/43; PULSE 103
== END 2021-04-29 06:15 | disposition home or self-care (01) ==
LOC: MW.ED 04:37
DX: I48.91 Unspecified atrial fibrillation (principal); N28.9 Disorder of kidney and ureter, unspecified; E78.00 Pure hypercholesterolemia, unspecified; I10 Essential (primary) hypertension; K21.9 Gastro-esophageal reflux disease without esophagitis; E66.9 Obesity, unspecified; Z68.41 Body mass index [BMI] 40.0-44.9, adult; Z20.822 Contact with and (suspected) exposure to COVID-19; Z79.899 Other long term (current) drug therapy; Z88.6 Allergy status to analgesic agent; Z88.8 Allergy status to other drugs, medicaments and biological substances; Z88.5 Allergy status to narcotic agent; Z79.01 Long term (current) use of anticoagulants
CPT/HCPCS: 71045; 80053; 83735; 83880; 84100; 84484; 85025; 85610; 85730; 93005; 96374; 99285; J3490; J7120; U0002

== ENCOUNTER 2021-04-30 22:48 | Emergency (ER) | payer MEDICARE, MEDICAID ==
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
[2021-05-01] MEDS ORDERED: Metoprolol Tartrate 50 MG Tab PO ONE (00:44)
[2021-05-01 01:11] VITALS: BP 131/97; PULSE 98
== END 2021-05-01 01:15 | disposition home or self-care (01) ==
LOC: MW.ED 22:48
DX: I48.91 Unspecified atrial fibrillation (principal); E78.00 Pure hypercholesterolemia, unspecified; I10 Essential (primary) hypertension; R00.0 Tachycardia, unspecified; E66.9 Obesity, unspecified; Z68.31 Body mass index [BMI] 31.0-31.9, adult; Z76.0 Encounter for issue of repeat prescription; Z72.0 Tobacco use; Z88.5 Allergy status to narcotic agent; Z88.8 Allergy status to other drugs, medicaments and biological substances; Z88.1 Allergy status to other antibiotic agents; Z79.01 Long term (current) use of anticoagulants; Z79.899 Other long term (current) drug therapy
CPT/HCPCS: 93005; 99282-25

== ENCOUNTER 2021-05-11 00:48 | Emergency (ER) | payer MEDICARE, MEDICAID ==
[2021-05-11 01:14] VITALS: BP 112/80; PULSE 91
[2021-05-11] MEDS ORDERED: Acetaminophen/oxyCODONE 325-10 MG Tab PO ONE (01:38)
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
== END 2021-05-11 01:51 | disposition home or self-care (01) ==
LOC: MW.ED 00:48
DX: G89.29 Other chronic pain (principal); I48.91 Unspecified atrial fibrillation; E78.00 Pure hypercholesterolemia, unspecified; I10 Essential (primary) hypertension; E66.9 Obesity, unspecified; Z68.30 Body mass index [BMI] 30.0-30.9, adult; Z88.5 Allergy status to narcotic agent; Z88.6 Allergy status to analgesic agent; Z88.8 Allergy status to other drugs, medicaments and biological substances; Z79.01 Long term (current) use of anticoagulants; Z79.899 Other long term (current) drug therapy; Z72.0 Tobacco use
CPT/HCPCS: 99283; A9270

== ENCOUNTER 2021-06-05 17:02 | Emergency (ER) | payer MEDICARE, MEDICAID ==
--- NOTE | 2021-06-05 17:19 | PCM.EKG ---
#1 Interpretation EKG Date: 06/05/21 Time: 17:13 Rhythm: NSR Rate (Beats/Min): 88 ST-T: Normal
[2021-06-05] MEDS ORDERED: Aspirin 81 MG Tab.Chew PO ONE (17:27)
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
--- NOTE | 2021-06-05 18:23 | CR ---
INDICATION: Chest pain TECHNIQUE: Chest radiograph 1 view COMPARISON: 04/29/2021 FINDINGS: Mediastinum: The mediastinum is normal in appearance. The heart silhouette is normal in size and morphology. Lung: Both lungs are unremarkable in appearance. No sign of pleural effusion seen. No pneumothorax is identified. Bone and Soft tissue: Unremarkable for age. IMPRESSION: 1. No acute cardiopulmonary disease is seen. Dictated by: James Duckworth MD @ 06/05/2021 18:22:03 (Electronically Signed)
[2021-06-05] MEDS ORDERED: Morphine 4 MG/ML VIAL IVPUSH ONE (18:25)
[2021-06-05 18:28] LABS: BLOOD UREA NITROGEN,BUN 23 mg/dL (7.0-18.0); CARBON DIOXIDE,CO2 18.4 mmol/L (21.0-32.0); CHLORIDE,CL 103 mmol/L (98-107); GLUCOSE RANDOM 153 mg/dL (74-106); POTASSIUM,K 3.7 mmol/L (3.5-5.1); SODIUM,NA 138 mmol/L (136-145)
[2021-06-05 22:09] VITALS: BP 132/78; PULSE 92
== END 2021-06-05 22:01 | disposition home or self-care (01) ==
LOC: MW.ED 17:02
DX: R07.89 Other chest pain (principal); I48.91 Unspecified atrial fibrillation; I10 Essential (primary) hypertension; E66.9 Obesity, unspecified; Z68.30 Body mass index [BMI] 30.0-30.9, adult; Z72.0 Tobacco use; Z88.5 Allergy status to narcotic agent; Z88.8 Allergy status to other drugs, medicaments and biological substances; Z88.1 Allergy status to other antibiotic agents; Z79.899 Other long term (current) drug therapy; Z20.822 Contact with and (suspected) exposure to COVID-19
CPT/HCPCS: 36415; 71045; 80053; 83690; 84484; 85025; 85379; 96374; 99285; A9270; J2270; U0002

== ENCOUNTER 2021-06-07 10:41 | Observation (INO) | payer MEDICARE, MEDICAID ==
--- NOTE | 2021-06-07 12:21 | PCM.EKG ---
#1 Interpretation EKG Date: 06/07/21 Time: 12:14 Rhythm: NSR Rate (Beats/Min): 65 [place]: Normal P-Wave: Present QRS: Normal ST-T: Normal QT: Normal Comparison: No Change (06/05/21) EKG Interpretation Comments: Sinus Rhythm
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
--- NOTE | 2021-06-07 13:06 | CR ---
INDICATION: Dyspnea COMPARISON: June 05, 2021 TECHNIQUE: Single view AP portable upright study FINDINGS: TUBES AND LINES: None. HEART AND MEDIASTINUM: The heart size is normal. The mediastinal contour appears normal for patient age. LUNGS AND PLEURAL SPACES: The lungs appear normal.The pleural spaces are unremarkable. OSSEOUS STRUCTURES: Age-appropriate appearance. No acute focal finding. IMPRESSION: No evidence of active pulmonary disease. Dictated by Keven Figueroa MD @ 06/07/2021 1:05:31 PM (Electronically Signed)
[2021-06-07 13:28] LABS: BLOOD UREA NITROGEN,BUN 28 mg/dL (7.0-18.0); CARBON DIOXIDE,CO2 19.6 mmol/L (21.0-32.0); CHLORIDE,CL 105 mmol/L (98-107); GLUCOSE RANDOM 104 mg/dL (74-106); POTASSIUM,K 4.1 mmol/L (3.5-5.1); SODIUM,NA 136 mmol/L (136-145)
[2021-06-07] MEDS ORDERED: Ondansetron 4 MG/2 ML SDV IVPUSH PRN (15:49)
[2021-06-07] MEDS ORDERED: ClonazePAM 1 MG Tab PO PRN (16:21)
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
[2021-06-07] MEDS: Oseltamivir 75 MG Cap PO SCH ×2 (16:59→21:00)
[2021-06-07] MEDS: Acetaminophen/oxyCODONE 325-5 MG Tab PO PRN (17:00)
[2021-06-07] MEDS ORDERED: Amitriptyline 25 MG Tab PO SCH (21:00)
[2021-06-07] MEDS: Metoprolol Tartrate 25 MG Tab PO SCH (21:10)
[2021-06-07] MEDS: Morphine 2 MG/ML SYRINGE IVPUSH PRN (21:15)
[2021-06-08] MEDS: Morphine 2 MG/ML SYRINGE IVPUSH PRN ×4 (00:59→15:47)
[2021-06-08 07:01] LABS: CARBON DIOXIDE,CO2 23.6 mmol/L (21.0-32.0); POTASSIUM,K 3.8 mmol/L (3.5-5.1)
[2021-06-08] MEDS: Metoprolol Tartrate 25 MG Tab PO SCH (08:41)
[2021-06-08] MEDS: Oseltamivir 75 MG Cap PO SCH (08:41)
[2021-06-08] MEDS ORDERED: Lisinopril/Hydrochlorothiazide 10-12.5 MG Tab PO SCH (09:00)
[2021-06-08] MEDS: Acetaminophen/oxyCODONE 325-5 MG Tab PO PRN (13:00)
[2021-06-08 13:05] VITALS: BP 133/75; PULSE 75
--- NOTE | 2021-06-08 14:54 | PCM.DCSUM1 ---
Discharge Summary - Discharge Data Discharge Date: 06/08/21 Discharge Disposition: Home, Self-Care 01 Condition: Good - Referral to Home Health Primary Care Physician: Rubens Szymanski MD - Patient Summary/Data Hospital Course: 56 yo female with pmh of hypertension, fibromyalgia, and atrial fibrillation who presents to the ED with complaint of headache, chest congestion and chest pain. She ruled out for acute coronary syndrome with serial negative cardiac enzymes and EKG. She had a recent Nuclear study which was nonischemic. She did test positive for Influenza. She was discharged home on Tamiflu. - Patient Instructions Diet: Regular Diet as Tolerated Activity: As Tolerated - Discharge Plan *PRESCRIPTION DRUG MONITORING PROGRAM REVIEWED*: Yes *COPY OF PRESCRIPTION DRUG MONITORING REPORT IN PATIENT DAVINA: Yes Prescriptions/Med Rec: Acetaminophen with Codeine [Acetaminophen-Cod #2] 1 each PO BID PRN #5 tablet PRN Reason: pain Oseltamivir [Tamiflu] 75 mg PO BID #8 cap Home Medications: Home Meds Amitriptyline [Elavil] 25 mg PO BEDTIME 03/18/21 [History] Lisinopril/Hydrochlorothiazide [Lisinopril-Hctz 20-25 mg Tab] 20 - 25 mg PO DAILY 03/18/21 [History] Metoprolol Tartrate 75 mg PO BID 06/05/21 [History] Acetaminophen with Codeine [Acetaminophen-Cod #2] 1 each PO BID PRN #5 tablet 06/08/21 [Rx] Oseltamivir [Tamiflu] 75 mg PO BID #8 cap 06/08/21 [Rx] Forms: ED Department Discharge Referrals: Rubens Szymanski MD [Primary Care Provider] - - Discharge Summary/Plan Comment DC Time >30 min.: No Total # of Minutes for Discharge Time: 15 - Patient Data Vitals - Most Recent: Last Vital Signs Temp 36.1 C 06/08/21 12:00 Pulse 75 06/08/21 12:00 Resp 14 06/08/21 12:00 BP 133/75 06/08/21 12:00 Pulse Ox 95 06/08/21 12:00 Weight - Most Recent: 104.326 kg I&O - Last 24 hours: Intake & Output 06/07/21 06/08/21 06/08/21 22:59 06:59 14:59 Intake Total 2200 Output Total 1600 Balance 600 Lab Results - Last 24 hrs: Laboratory Results - last 24 hr 06/07/21 06/08/21 06/08/21 Range/Units 19:10 01:01 05:48 WBC 8.35 (4.0-11.0) K/uL RBC 3.98 L (4.30-5.90) M/uL Hgb 12.6 (12.0-16.0) g/dL Hct 37.5 (36.0-46.0) % MCV 94.2 (80.0-98.0) fL MCH 31.7 (27.0-32.0) pg MCHC 33.6 (31.0-37.0) g/dL RDW Std Deviation 50.6 (28.0-62.0) fl RDW Coeff of Abdirahman 15 (11.0-15.0) % Plt Count 276 (150-400) K/uL MPV 9.60 (7.40-12.00) fL Neut % (Auto) 58.5 (48.0-80.0) % Lymph % (Auto) 28.5 (16.0-40.0) % Harrison % (Auto) 11.5 (0.0-15.0) % Eos % (Auto) 1.0 (0.0-7.0) % Baso % (Auto) 0.5 (0.0-1.5) % Neut # (Auto) 4.9 (1.4-5.7) K/uL Lymph # (Auto) 2.4 (0.6-2.4) K/uL Harrison # (Auto) 1.0 H (0.0-0.8) K/uL Eos # (Auto) 0.1 (0.0-0.7) K/uL Baso # (Auto) 0.0 (0.0-0.1) K/uL Nucleated RBC % 0.0 /100WBC Nucleated RBCs # 0 K/uL Sodium (136-145) mmol/L Potassium (3.5-5.1) mmol/L Chloride (98-107) mmol/L Carbon Dioxide (21.0-32.0) mmol/L BUN (7.0-18.0) mg/dL Creatinine (0.6-1.0) mg/dL Est Cr Clr Drug Dosing mL/min Estimated GFR (MDRD) ml/min Glucose (74-106) mg/dL Calcium (8.5-10.1) mg/dL Troponin I < 0.050 < 0.050 (0.000-0.056) ng/mL 06/08/21 Range/Units 05:48 WBC (4.0-11.0) K/uL RBC (4.30-5.90) M/uL Hgb (12.0-16.0) g/dL Hct (36.0-46.0) % MCV (80.0-98.0) fL MCH (27.0-32.0) pg MCHC (31.0-37.0) g/dL RDW Std Deviation (28.0-62.0) fl RDW Coeff of Abdirahman (11.0-15.0) % Plt Count (150-400) K/uL MPV (7.40-12.00) fL Neut % (Auto) (48.0-80.0) % Lymph % (Auto) (16.0-40.0) % Harrison % (Auto) (0.0-15.0) % Eos % (Auto) (0.0-7.0) % Baso % (Auto) (0.0-1.5) % Neut # (Auto) (1.4-5.7) K/uL Lymph # (Auto) (0.6-2.4) K/uL Harrison # (Auto) (0.0-0.8) K/uL Eos # (Auto) (0.0-0.7) K/uL Baso # (Auto) (0.0-0.1) K/uL Nucleated RBC % /100WBC Nucleated RBCs # K/uL Sodium 140 (136-145) mmol/L Potassium 3.8 (3.5-5.1) mmol/L Chloride 106 (98-107) mmol/L Carbon Dioxide 23.6 (21.0-32.0) mmol/L BUN 32 H (7.0-18.0) mg/dL Creatinine 1.1 H (0.6-1.0) mg/dL Est Cr Clr Drug Dosing 67.97 mL/min Estimated GFR (MDRD) 51.4 ml/min Glucose 92 (74-106) mg/dL Calcium 8.2 L (8.5-10.1) mg/dL Troponin I (0.000-0.056) ng/mL KAVYA Results - Last 24 hrs: Microbiology 06/07/21 12:22 Influenza Type A Antigen Screen - Final Nasopharyngeal Swab Positive Influenza A Ag Influenza Type B Antigen Screen - Final Positive Influenza B Ag Med Orders - Current: Current Medications Amitriptyline HCl (Amitriptyline 25 Mg Tab) 25 mg PO BEDTIME [facility] Last Admin: 06/07/21 21:00 Dose: Not Given Documented by: Clonazepam (Clonazepam 1 Mg Tab) 1 mg PO BEDTIME PRN PRN Reason: Anxiety Last Admin: 06/07/21 21:10 Dose: 1 mg Documented by: Lisinopril/HCTZ (Lisinopril/Hydrochlorothiazide 10-12.5 Mg Tab) 2 tab PO DAILY [facility] Last Admin: 06/08/21 08:41 Dose: 2 tab Documented by: Metoprolol Tartrate (Metoprolol Tartrate 25 Mg Tab) 75 mg PO BID [facility] Last Admin: 06/08/21 08:41 Dose: 75 mg Documented by: Morphine Sulfate (Morphine 2 Mg/Ml Syringe) 2 mg IVPUSH Q4H PRN PRN Reason: Pain Last Admin: 06/08/21 09:48 Dose: 2 mg Documented by: Ondansetron HCl (Ondansetron 4 Mg/2 Ml Sdv) 4 mg IVPUSH Q4H PRN PRN Reason: nausea Oseltamivir Phosphate (Oseltamivir 75 Mg Cap) 75 mg PO BID [facility] Last Admin: 06/08/21 08:41 Dose: 75 mg Documented by: Oxycodone/Acetaminophen (Acetaminophen/Oxycodone 325-5 Mg Tab) 1 tab PO Q8H PRN PRN Reason: Pain Last Admin: 06/08/21 13:00 Dose: 1 tab Documented by:
== END 2021-06-08 15:55 | disposition home or self-care (01) ==
LOC: MW.ED 10:41 → MW.MS 13:45
PROVIDERS: ADMIT Internal Medicine; ATTEND Internal Medicine
DX: R07.9 Chest pain, unspecified (principal); I10 Essential (primary) hypertension; M79.7 Fibromyalgia; E78.00 Pure hypercholesterolemia, unspecified; K21.9 Gastro-esophageal reflux disease without esophagitis; E66.9 Obesity, unspecified; Z20.822 Contact with and (suspected) exposure to COVID-19; Z90.49 Acquired absence of other specified parts of digestive tract; Z98.890 Other specified postprocedural states; Z88.8 Allergy status to other drugs, medicaments and biological substances; Z79.899 Other long term (current) drug therapy; Z68.30 Body mass index [BMI] 30.0-30.9, adult
CPT/HCPCS: 36415; 71045; 80048; 80053; 84484; 85025; 87804; 93005; 96374; 96376; 99285; A9270; G0378; J2270; U0002

== ENCOUNTER 2021-06-09 11:51 | Emergency (ER) | payer MEDICARE, MEDICAID ==
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
[2021-06-09] MEDS ORDERED: Albuterol/Ipratropium 3.0-0.5 MG/3 ML Neb Soln NEB ONE (12:06)
[2021-06-09 12:52] LABS: BLOOD UREA NITROGEN,BUN 25 mg/dL (7.0-18.0); CHLORIDE,CL 106 mmol/L (98-107); GLUCOSE RANDOM 96 mg/dL (74-106); POTASSIUM,K 3.7 mmol/L (3.5-5.1); SODIUM,NA 138 mmol/L (136-145)
--- NOTE | 2021-06-09 12:55 | PCM.EKG ---
#1 Interpretation EKG Date: 06/09/21 Time: 12:05 Rhythm: NSR Rate (Beats/Min): 63 [place]: Normal P-Wave: Present QRS: Normal ST-T: Normal QT: Normal Comparison: No Change (06/05/21) EKG Interpretation Comments: Sinus Rhythm
--- NOTE | 2021-06-09 13:00 | CR ---
INDICATION: cough, influenza TECHNIQUE: Chest 1 view COMPARISON: 06/07/21, 06/05/2021 FINDINGS: Cardiovascular and mediastinum: Cardiac silhouette is upper limits normal. Tortuosity of the aorta noted. Lungs and pleural spaces: Lungs are clear. No sign of infiltrate or mass. No sign of pleural effusion. No pneumothorax. Bones and soft tissues: No significant findings. Chronic prominence of the right 1st rib. IMPRESSION: Clear lungs. No change. Dictated by Timothy Joyce MD @ 06/09/2021 12:59:03 PM (Electronically Signed)
[2021-06-09 13:15] VITALS: BP 141/92; PULSE 76
== END 2021-06-09 13:16 | disposition home or self-care (01) ==
LOC: MW.ED 11:51
DX: J11.1 Influenza due to unidentified influenza virus with other respiratory manifestations (principal); I10 Essential (primary) hypertension; E66.9 Obesity, unspecified; Z68.30 Body mass index [BMI] 30.0-30.9, adult; Z88.5 Allergy status to narcotic agent; Z88.6 Allergy status to analgesic agent; Z88.8 Allergy status to other drugs, medicaments and biological substances
CPT/HCPCS: 36415; 71045; 71045-26; 80053; 84484; 85025; 93005; 99285-25; J7620-GY

== ENCOUNTER 2021-06-10 00:32 | Emergency (ER) | payer MEDICARE, MEDICAID ==
[2021-06-10] MEDS ORDERED: Albuterol/Ipratropium 3.0-0.5 MG/3 ML Neb Soln ONE (00:34)
[2021-06-10] MEDS ORDERED: Albuterol/Ipratropium 3.0-0.5 MG/3 ML Neb Soln NEB ONE ×2 (00:35→00:53)
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
[2021-06-10] MEDS ORDERED: Albuterol 8 GM Inhaler INH ONE (00:53)
[2021-06-10 01:29] VITALS: BP 113/74; PULSE 110
== END 2021-06-10 01:15 | disposition home or self-care (01) ==
LOC: MW.ED 00:32
DX: J10.1 Influenza due to other identified influenza virus with other respiratory manifestations (principal); R55 Syncope and collapse; I48.91 Unspecified atrial fibrillation; I10 Essential (primary) hypertension; E66.9 Obesity, unspecified; Z68.30 Body mass index [BMI] 30.0-30.9, adult; Z88.5 Allergy status to narcotic agent; Z88.8 Allergy status to other drugs, medicaments and biological substances; Z88.1 Allergy status to other antibiotic agents; Z79.899 Other long term (current) drug therapy
CPT/HCPCS: 99285; A9270; J7620-GY

== ENCOUNTER 2021-06-11 19:51 | Emergency (ER) | payer MEDICARE, MEDICAID ==
[2021-06-11] MEDS ORDERED: Albuterol/Ipratropium 3.0-0.5 MG/3 ML Neb Soln NEB ONE (20:04)
[2021-06-11] MEDS ORDERED: Codeine/guaiFENesin 10-100 MG/5 ML Syrup 5 ML Cup PO ONE (20:06)
--- NOTE | 2021-06-11 20:59 | CR ---
Indication: Influenza, shortness of breath Technique: Chest 1 view Comparison: June 09, 2021 Findings/Impression: Cardiovascular and mediastinum: Heart size and vasculature are normal in caliber and appearance. Mediastinum is within normal limits. Lungs and pleural space: Lungs are clear. No sign of infiltrate or mass. No sign of pleural effusion. No pneumothorax. Bones and soft tissues: No significant findings. Dictated by Beulah Mercado MD @ 06/11/2021 8:57:44 PM (Electronically Signed)
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
[2021-06-11 21:47] LABS: BLOOD UREA NITROGEN,BUN 25 mg/dL (7.0-18.0); CARBON DIOXIDE,CO2 19.7 mmol/L (21.0-32.0); CHLORIDE,CL 105 mmol/L (98-107); GLUCOSE RANDOM 106 mg/dL (74-106); POTASSIUM,K 3.5 mmol/L (3.5-5.1); SODIUM,NA 140 mmol/L (136-145)
[2021-06-11 22:10] VITALS: BP 131/85; PULSE 92
== END 2021-06-11 22:10 | disposition home or self-care (01) ==
LOC: MW.ED 19:51
DX: J10.1 Influenza due to other identified influenza virus with other respiratory manifestations (principal); R07.89 Other chest pain; I10 Essential (primary) hypertension; E66.9 Obesity, unspecified; Z88.6 Allergy status to analgesic agent; Z88.5 Allergy status to narcotic agent; Z88.8 Allergy status to other drugs, medicaments and biological substances; Z68.30 Body mass index [BMI] 30.0-30.9, adult
CPT/HCPCS: 36415; 71045; 80053; 84484; 85025; 93005; 99285; A9270; U0002; J7620-GY

== ENCOUNTER 2021-06-23 15:02 | Emergency (ER) | payer MEDICARE, MEDICAID | END 2021-06-23 16:30 | disposition left against medical advice (07) | LOC: MW.ED 15:02 | DX: Z53.21 Procedure and treatment not carried out due to patient leaving prior to being seen by health care provider (principal) ==

== ENCOUNTER 2021-06-26 20:57 | Emergency (ER) | payer MEDICARE, MEDICAID ==
[2021-06-26 21:04] VITALS: BP 121/68; PULSE 88
[2021-06-26] MEDS ORDERED: Sodium Chloride 0.9% 1,000 ML IV ONE (21:17)
[2021-06-26] MEDS ORDERED: Sodium Chloride 0.9% 10 ML Syringe FLUSH PRN (21:17)
[2021-06-26] MEDS ORDERED: Sodium Chloride 0.9% 2.5 ML Syringe FLUSH PRN (21:17)
[2021-06-26 21:36] LABS: CARBON DIOXIDE,CO2 19.2 mmol/L (21.0-32.0); POTASSIUM,K 3.7 mmol/L (3.5-5.1)
[2021-06-26] MEDS ORDERED: Acetaminophen/HYDROcodone 325-5 MG Tab PO ONE (23:05)
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
== END 2021-06-26 23:25 | disposition home or self-care (01) ==
LOC: MW.ED 20:57
DX: K50.90 Crohn's disease, unspecified, without complications (principal); J10.1 Influenza due to other identified influenza virus with other respiratory manifestations; R07.89 Other chest pain; I48.91 Unspecified atrial fibrillation; I10 Essential (primary) hypertension; M06.9 Rheumatoid arthritis, unspecified; E66.9 Obesity, unspecified; Z68.30 Body mass index [BMI] 30.0-30.9, adult; Z72.0 Tobacco use; Z88.5 Allergy status to narcotic agent; Z88.8 Allergy status to other drugs, medicaments and biological substances; Z88.1 Allergy status to other antibiotic agents; Z79.899 Other long term (current) drug therapy
CPT/HCPCS: 36415; 80053; 83690; 85025; 93005; 99284; A9270; J7030; 93010

== ENCOUNTER 2021-07-13 16:40 | Emergency (ER) | payer MEDICARE, MEDICAID ==
[2021-07-13] MEDS ORDERED: Acetaminophen/HYDROcodone 325-5 MG Tab PO ONE (17:53)
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
[2021-07-13 18:12] LABS: CARBON DIOXIDE,CO2 22.6 mmol/L (21.0-32.0); POTASSIUM,K 3.2 mmol/L (3.5-5.1)
--- NOTE | 2021-07-13 18:53 | CT ---
INDICATION: Left flank pain. TECHNIQUE: CT abdomen and pelvis without contrast. COMPARISON: CT abdomen/pelvis dated 04/25/2000. FINDINGS: Lower chest: Subpleural focal scarring in the right lower lobe, unchanged. Evaluation of solid organs is limited secondary to lack of IV contrast administration. Liver: Too small to characterize hypodense hepatic lesions, likely benign in the absence of a known malignancy. Gallbladder and bile ducts: Postcholecystectomy. Pancreas: Unremarkable. Spleen: Unremarkable. Adrenal glands: Unremarkable. Kidneys: No calculi identified in the bilateral renal collecting systems. No hydronephrosis or hydroureter bilaterally. Mild left perinephric stranding/inflammation, slightly increased in comparison to prior study. Retroperitoneum: No lymphadenopathy. Bowel and mesentery: Bowel is nonobstructed. Minimal inflammatory changes associated with a proximal sigmoid colonic diverticulum, worrisome for mild diverticulitis. No significant ascites, no pneumoperitoneum. Bladder: Unremarkable for degree of distension. Reproductive organs: Posthysterectomy. Pelvic lymph nodes: No lymphadenopathy. Vessels: Mild atherosclerotic calcifications. Abdominal wall: No acute abdominal wall abnormality. Bones: Multilevel degenerative changes of the spine. No suspicious/aggressive focal osseous lesion. IMPRESSION: 1. Minimal inflammatory changes associated with a proximal sigmoid colonic diverticulum, worrisome for mild diverticulitis. 2. No calculi identified in the bilateral renal collecting systems. No hydronephrosis or hydroureter bilaterally. 3. Mild left perinephric stranding/inflammation has slightly increased in comparison to prior study. Although this may reflect chronic changes, recommend correlation with urinalysis to exclude pyelonephritis. Please note that all CT scans at this facility use dose modulation, iterative reconstruction, and/or weight-based dosing when appropriate to reduce radiation dose to as low as reasonably achievable. Dictated by Pete Luis MD @ 07/13/2021 6:52:39 PM (Electronically Signed)
[2021-07-13 19:28] VITALS: BP 174/113; PULSE 75
== END 2021-07-13 19:16 | disposition home or self-care (01) ==
LOC: MW.ED 16:40
DX: K57.32 Diverticulitis of large intestine without perforation or abscess without bleeding (principal); I48.91 Unspecified atrial fibrillation; E78.00 Pure hypercholesterolemia, unspecified; I10 Essential (primary) hypertension; E66.9 Obesity, unspecified; Z68.30 Body mass index [BMI] 30.0-30.9, adult; Z88.5 Allergy status to narcotic agent; Z88.6 Allergy status to analgesic agent; Z88.1 Allergy status to other antibiotic agents; Z88.8 Allergy status to other drugs, medicaments and biological substances
CPT/HCPCS: 36415; 74176; 80053; 81001; 83690; 85025; 99284; A9270; 99285

== ENCOUNTER 2021-07-15 19:42 | Emergency (ER) | payer MEDICARE, MEDICAID ==
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
[2021-07-15] MEDS ORDERED: Sodium Chloride 0.9% 1,000 ML IV ONE (19:55)
[2021-07-15] MEDS ORDERED: Morphine 4 MG/ML VIAL IVPUSH ONE ×2 (19:55→22:50)
[2021-07-15] MEDS ORDERED: Ondansetron 4 MG/2 ML SDV IVPUSH ONE (19:56)
[2021-07-15 20:43] LABS: BLOOD UREA NITROGEN,BUN 26 mg/dL (7.0-18.0); CARBON DIOXIDE,CO2 24.1 mmol/L (21.0-32.0); CHLORIDE,CL 105 mmol/L (98-107); GLUCOSE RANDOM 112 mg/dL (74-106); LIPASE 97 U/L (73-393); POTASSIUM,K 3.6 mmol/L (3.5-5.1); SODIUM,NA 141 mmol/L (136-145)
[2021-07-15 20:54] VITALS: BP 186/100; PULSE 70
[2021-07-15] MEDS ORDERED: Iopamidol 755 MG/ML 500 ML Multipack Bottle IVPUSH STA (22:00)
--- NOTE | 2021-07-15 22:39 | CT ---
INDICATION: Left lower quadrant pain TECHNIQUE: Axial images were obtained from the diaphragm to the pubic symphysis. Reformats were obtained in the coronal and sagittal plane. IV Contrast: 100 cc Isovue 370 Oral Contrast: None COMPARISON: Abdomen and pelvis CT 07/13/2021 FINDINGS: Lower chest: Linear scarring within the right lower lobe. Indeterminate 4 millimeter pulmonary nodule within the lingula, similar to the prior exam. Liver: Diffusely decreased density of the liver with 2 subcentimeter hypodense lesions which are too small for characterization although appears similar to the prior exam. Gallbladder and bile ducts: Status post cholecystectomy. Minimal intrahepatic biliary dilatation as well as dilatation of the common duct measuring up to 15 millimeters. This extends to the level of the papilla. Spleen: Unremarkable. Normal in size without mass. Pancreas: Unremarkable. No mass or inflammation. Adrenal glands: Unremarkable. No nodules. Kidneys: Lobulation of the kidneys without evidence of hydronephrosis. Subcentimeter hypodense lesion within left kidney redemonstrated, no change. Similar subcentimeter hypodense lesion within the right kidney which is too small for characterization. Vasculature: Atherosclerosis without abdominal aortic aneurysm. GI tract: The stomach is decompressed. No dilated loops of large or small intestine. Colonic diverticulosis with some slight fat stranding and fascial thickening questioned adjacent to the proximal sigmoid colon (series 203, image [id number]). Pelvis: The bladder is unremarkable. Status posthysterectomy. Bones: Degenerative disc disease thoracolumbar spine. IMPRESSION: 1. Colonic diverticulosis with mild inflammation adjacent to the proximal sigmoid colon suggesting acute diverticulitis. Appearance and degree of inflammation appears similar to the study of 2 days prior. No evidence of abscess. 2. Status post cholecystectomy with interval dilatation of the extrahepatic common duct (compared to the study 2 days prior). Correlation with liver function studies suggested. If there is a cholestatic picture, MRCP may have improved characterization. 3. Other incidental findings as detailed above. Please note that all CT scans at this facility use dose modulation, iterative reconstruction, and/or weight-based dosing when appropriate to reduce radiation dose to as low as reasonably achievable. Dictated by Uri Aguilar MD @ 07/15/2021 10:38:25 PM (Electronically Signed)
== END 2021-07-15 23:22 | disposition home or self-care (01) ==
LOC: MW.ED 19:42
DX: K57.32 Diverticulitis of large intestine without perforation or abscess without bleeding (principal); I48.91 Unspecified atrial fibrillation; I10 Essential (primary) hypertension; E66.9 Obesity, unspecified; Z88.5 Allergy status to narcotic agent; Z88.8 Allergy status to other drugs, medicaments and biological substances; Z88.1 Allergy status to other antibiotic agents; Z79.899 Other long term (current) drug therapy
CPT/HCPCS: 36415; 74177; 80053; 81001; 83690; 85025; 96374; 96375; 96376; 99284; J2270; J2405; J7030; Q9967

== ENCOUNTER 2021-07-27 14:44 | Emergency (ER) | payer MEDICARE, MEDICAID ==
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
--- NOTE | 2021-07-27 15:46 | PCM.EKG ---
#1 Interpretation EKG Date: 07/27/21 Time: 15:38 Rhythm: NSR Rate (Beats/Min): 84 [place]: Normal P-Wave: Present QRS: Normal ST-T: Normal QT: Normal NM/PQ Interval: 151 EKG Interpretation Comments: unremarkable EKG, NSR, no acute ischemic changes
--- NOTE | 2021-07-27 16:33 | CR ---
INDICATION: Shortness of breath TECHNIQUE: Single view chest. FINDINGS: The lungs are clear. The heart, mediastinum and pulmonary vessels are of normal size. There is no evidence of pleural disease. IMPRESSION: Negative chest. Dictated by Ghazala Ko MD @ 07/27/2021 4:31:40 PM (Electronically Signed)
[2021-07-27 16:41] LABS: BLOOD UREA NITROGEN,BUN 41 mg/dL (7.0-18.0); CARBON DIOXIDE,CO2 20.4 mmol/L (21.0-32.0); CHLORIDE,CL 102 mmol/L (98-107); GLUCOSE RANDOM 128 mg/dL (74-106); POTASSIUM,K 3.5 mmol/L (3.5-5.1); SODIUM,NA 137 mmol/L (136-145)
[2021-07-27 16:46] LABS: CORONAVIRUS COVID-19 NAA NEGATIVE (NEGATIVE); INFLUENZA A NAA NEGATIVE (NEGATIVE); INFLUENZA B NAA NEGATIVE (NEGATIVE)
[2021-07-27 17:17] VITALS: BP 100/73; PULSE 86
== END 2021-07-27 17:17 | disposition home or self-care (01) ==
LOC: MW.ED 14:44
DX: R00.2 Palpitations (principal); I48.91 Unspecified atrial fibrillation; I10 Essential (primary) hypertension; E66.9 Obesity, unspecified; Z68.44 Body mass index [BMI] 60.0-69.9, adult; Z88.5 Allergy status to narcotic agent; Z88.8 Allergy status to other drugs, medicaments and biological substances; Z88.1 Allergy status to other antibiotic agents; Z20.822 Contact with and (suspected) exposure to COVID-19
CPT/HCPCS: 0240U; 36415; 71045; 80053; 84484; 85025; 93005; 99285

== ENCOUNTER 2021-08-11 18:16 | Emergency (ER) | payer MEDICARE, MEDICAID ==
[2021-08-11] MEDS ORDERED: Ondansetron 4 MG/2 ML SDV IVPUSH ONE (18:49)
[2021-08-11] MEDS ORDERED: Morphine 4 MG/ML VIAL IVPUSH ONE (18:49)
[2021-08-11] MEDS ORDERED: Sodium Chloride 0.9% 1,000 ML IV SCH (19:00)
[2021-08-11 19:56] LABS: CARBON DIOXIDE,CO2 23.4 mmol/L (21.0-32.0); POTASSIUM,K 3.5 mmol/L (3.5-5.1)
[2021-08-11 20:59] VITALS: BP 146/98; PULSE 92
== END 2021-08-11 20:59 | disposition home or self-care (01) ==
LOC: MW.ED 18:16
DX: R10.32 Left lower quadrant pain (principal); E78.00 Pure hypercholesterolemia, unspecified; I10 Essential (primary) hypertension; E66.9 Obesity, unspecified; Z68.30 Body mass index [BMI] 30.0-30.9, adult; Z72.0 Tobacco use; Z88.1 Allergy status to other antibiotic agents; Z88.6 Allergy status to analgesic agent; Z88.8 Allergy status to other drugs, medicaments and biological substances; Z79.899 Other long term (current) drug therapy
CPT/HCPCS: 36415; 80053; 81001; 83690; 85025; 96374; 96375; 99284; J2270; J2405; J7030

== ENCOUNTER 2021-08-13 20:00 | Emergency (ER) | payer MEDICARE, MEDICAID ==
[2021-08-13] MEDS ORDERED: Ondansetron 4 MG/2 ML SDV IVPUSH ONE (20:07)
[2021-08-13] MEDS ORDERED: Morphine 4 MG/ML VIAL IVPUSH ONE (20:07)
[2021-08-13] MEDS ORDERED: Sodium Chloride 0.9% 1,000 ML IV ONE (20:07)
[2021-08-13] MEDS ORDERED: Iopamidol 755 MG/ML 500 ML Multipack Bottle IVPUSH STA (20:49)
[2021-08-13 21:04] LABS: CARBON DIOXIDE,CO2 21.4 mmol/L (21.0-32.0); POTASSIUM,K 3.1 mmol/L (3.5-5.1)
[2021-08-13] MEDS ORDERED: Acetaminophen/HYDROcodone 325-5 MG Tab PO ONE (21:47)
[2021-08-13 21:48] VITALS: BP 129/96; PULSE 63
== END 2021-08-13 21:59 | disposition home or self-care (01) ==
LOC: MW.ED 20:00
DX: R10.32 Left lower quadrant pain (principal); I48.91 Unspecified atrial fibrillation; I10 Essential (primary) hypertension; E66.9 Obesity, unspecified; Z68.30 Body mass index [BMI] 30.0-30.9, adult; Z76.5 Malingerer [conscious simulation]; Z87.891 Personal history of nicotine dependence; Z88.5 Allergy status to narcotic agent; Z88.8 Allergy status to other drugs, medicaments and biological substances; Z88.1 Allergy status to other antibiotic agents; Z79.899 Other long term (current) drug therapy
CPT/HCPCS: 36415; 74177; 80053; 83690; 85025; 96374; 96375; 99284; A9270; J2270; J2405; J7030; Q9967

== ENCOUNTER 2021-10-15 18:34 | Emergency (ER) | payer MEDICARE, MEDICAID ==
[2021-10-15] MEDS ORDERED: fentaNYL 50 MCG/ML SDV IM ONE (19:46)
[2021-10-15] MEDS ORDERED: Pantoprazole 40 MG Tab.CR PO STA (19:46)
[2021-10-15] MEDS ORDERED: Ondansetron 4 MG Tab.DIS PO ONE (19:46)
[2021-10-15 20:11] VITALS: BP 120/78; PULSE 89
== END 2021-10-15 20:12 | disposition home or self-care (01) ==
LOC: MW.ED 18:34
DX: R10.30 Lower abdominal pain, unspecified (principal); I10 Essential (primary) hypertension; I48.91 Unspecified atrial fibrillation; K21.9 Gastro-esophageal reflux disease without esophagitis; E78.00 Pure hypercholesterolemia, unspecified; E66.9 Obesity, unspecified; F17.210 Nicotine dependence, cigarettes, uncomplicated; Z68.30 Body mass index [BMI] 30.0-30.9, adult; Z88.6 Allergy status to analgesic agent; Z88.8 Allergy status to other drugs, medicaments and biological substances; Z88.1 Allergy status to other antibiotic agents; Z79.899 Other long term (current) drug therapy; Z90.49 Acquired absence of other specified parts of digestive tract; Z90.710 Acquired absence of both cervix and uterus
CPT/HCPCS: 96372; 99283; A9270; J3010

== ENCOUNTER 2021-10-18 15:33 | Inpatient (IN) | payer MEDICARE, MEDICAID ==
[2021-10-18] MEDS ORDERED: Sodium Chloride 0.9% 10 ML Syringe FLUSH PRN (16:11)
[2021-10-18] MEDS ORDERED: Sodium Chloride 0.9% 2.5 ML Syringe FLUSH PRN (16:11)
[2021-10-18] MEDS ORDERED: Morphine 4 MG/ML VIAL IVPUSH ONE (16:12)
[2021-10-18] MEDS ORDERED: Lactated Ringers 1,000 ML IV ONE ×2 (16:12→17:40)
[2021-10-18] MEDS ORDERED: Ondansetron 4 MG/2 ML SDV IVPUSH ONE (16:12)
[2021-10-18 17:38] LABS: CARBON DIOXIDE,CO2 17.1 mmol/L (21.0-32.0); POTASSIUM,K 2.9 mmol/L (3.5-5.1)
[2021-10-18] MEDS ORDERED: Potassium Chloride Riders 40 MEQ in Premix Bag 1 BAG IV ONE (17:41)
[2021-10-18] MEDS: Sodium Chloride 0.9% 1,000 ML IV SCH (23:10)
[2021-10-18] MEDS ORDERED: Promethazine 25 MG/ML SDV IM PRN (23:27)
[2021-10-18] MEDS ORDERED: LORazepam 1 MG Tab PO ONE (23:28)
[2021-10-18] MEDS ORDERED: Metoclopramide 5 MG Tab PO PRN (23:30)
[2021-10-19] MEDS: Acetaminophen/HYDROcodone 325-5 MG Tab PO PRN ×5 (00:07→17:24)
[2021-10-19] MEDS: Ondansetron 4 MG/2 ML SDV IVPUSH PRN ×2 (00:07→15:22)
[2021-10-19] MEDS: Pantoprazole 40 MG in Sodium Chloride 0.9% 10 ML IVPUSH SCH ×2 (00:08→23:45)
[2021-10-19] MEDS: Morphine 2 MG/ML SYRINGE IVPUSH PRN ×3 (01:21→10:28)
[2021-10-19 08:13] LABS: CARBON DIOXIDE,CO2 17.4 mmol/L (21.0-32.0); POTASSIUM,K 2.6 mmol/L (3.5-5.1)
[2021-10-19] MEDS: Sodium Chloride 0.9% 1,000 ML IV SCH ×2 (08:37→21:02)
[2021-10-19] MEDS ORDERED: Sodium Chloride 0.9% with KCl 1,000 ML IV SCH (13:30)
[2021-10-19] MEDS ORDERED: Potassium Chloride 20 MEQ Tab.ER PO ONE (14:02)
[2021-10-19] MEDS: HYDROmorphone 1 MG/ML Syringe IVPUSH PRN ×3 (14:59→22:43)
[2021-10-19 19:41] LABS: CARBON DIOXIDE,CO2 19.7 mmol/L (21.0-32.0); POTASSIUM,K 3.2 mmol/L (3.5-5.1)
[2021-10-20] MEDS: HYDROmorphone 1 MG/ML Syringe IVPUSH PRN ×6 (01:49→20:37)
[2021-10-20] MEDS: Ondansetron 4 MG/2 ML SDV IVPUSH PRN ×2 (03:20→08:30)
[2021-10-20] MEDS: Sodium Chloride 0.9% 1,000 ML IV SCH (05:01)
[2021-10-20 06:42] LABS: BLOOD UREA NITROGEN,BUN 15 mg/dL (7.0-18.0); CARBON DIOXIDE,CO2 18.8 mmol/L (21.0-32.0); CHLORIDE,CL 107 mmol/L (98-107); GLUCOSE RANDOM 117 mg/dL (74-106); POTASSIUM,K 2.9 mmol/L (3.5-5.1); SODIUM,NA 136 mmol/L (136-145)
[2021-10-20] MEDS ORDERED: Sodium Chloride 0.9% 1,000 ML IV ONE (12:57)
[2021-10-20] MEDS ORDERED: Potassium Chloride 20 MEQ Tab.ER PO ONE (12:57)
[2021-10-20] MEDS: Phosphorus #1 250 MG Tab PO SCH ×2 (17:53→23:20)
[2021-10-20] MEDS: Pantoprazole 40 MG in Sodium Chloride 0.9% 10 ML IVPUSH SCH (23:20)
[2021-10-21] MEDS ORDERED: Diltiazem 25 MG/5 ML SDV IVPUSH ONE (00:57)
[2021-10-21] MEDS ORDERED: Metoprolol Tartrate 25 MG Tab PO ONE (01:00)
[2021-10-21] MEDS: Acetaminophen/HYDROcodone 325-5 MG Tab PO PRN ×5 (01:47→21:35)
[2021-10-21 02:16] LABS: BLOOD UREA NITROGEN,BUN 13 mg/dL (7.0-18.0); CHLORIDE,CL 105 mmol/L (98-107); GLUCOSE RANDOM 132 mg/dL (74-106); POTASSIUM,K 2.9 mmol/L (3.5-5.1); SODIUM,NA 137 mmol/L (136-145)
[2021-10-21] MEDS: HYDROmorphone 1 MG/ML Syringe IVPUSH PRN ×2 (04:24→12:03)
[2021-10-21] MEDS: Phosphorus #1 250 MG Tab PO SCH ×3 (05:03→17:31)
[2021-10-21 06:07] LABS: CARBON DIOXIDE,CO2 18.5 mmol/L (21.0-32.0); POTASSIUM,K 2.8 mmol/L (3.5-5.1)
[2021-10-21] MEDS ORDERED: Sodium Chloride 0.9% with KCl 1,000 ML IV ONE (07:55)
[2021-10-21] MEDS: Potassium Chloride 20 MEQ Tab.ER PO SCH ×2 (08:14→12:04)
[2021-10-21] MEDS: Metoprolol Tartrate 25 MG Tab PO SCH ×2 (08:15→20:32)
[2021-10-21] MEDS: Ondansetron 4 MG/2 ML SDV IVPUSH PRN (08:48)
[2021-10-21] MEDS ORDERED: Sodium Chloride 0.9% 2.5 ML Syringe FLUSH PRN (10:36)
[2021-10-21] MEDS ORDERED: Sodium Chloride 0.9% 10 ML Syringe FLUSH PRN (10:36)
[2021-10-21] MEDS: Enoxaparin 40 MG/0.4 ML Syringe SUBCUT SCH (12:05)
[2021-10-21] MEDS ORDERED: Pantoprazole 40 MG in Sodium Chloride 0.9% 10 ML IVPUSH SCH (21:00)
[2021-10-22] MEDS: Phosphorus #1 250 MG Tab PO SCH ×2 (00:05→06:25)
[2021-10-22] MEDS: Acetaminophen/HYDROcodone 325-5 MG Tab PO PRN ×3 (01:28→10:21)
[2021-10-22 06:57] LABS: BLOOD UREA NITROGEN,BUN 20 mg/dL (7.0-18.0); CARBON DIOXIDE,CO2 18.6 mmol/L (21.0-32.0); CHLORIDE,CL 111 mmol/L (98-107); GLUCOSE RANDOM 110 mg/dL (74-106); POTASSIUM,K 3.6 mmol/L (3.5-5.1); SODIUM,NA 139 mmol/L (136-145)
[2021-10-22 08:11] VITALS: BP 125/80; PULSE 79
[2021-10-22] MEDS: Metoprolol Tartrate 25 MG Tab PO SCH (08:20)
[2021-10-22] MEDS: Enoxaparin 40 MG/0.4 ML Syringe SUBCUT SCH (11:02)
== END 2021-10-22 11:35 | disposition home or self-care (01) | DRG 683 ==
LOC: MW.ED 15:33 → MW.MS 17:49 → OBSVTOIN 10-20 11:30
PROVIDERS: ADMIT Internal Medicine; ATTEND Internal Medicine
DX: N17.9 Acute kidney failure, unspecified (principal); K50.90 Crohn's disease, unspecified, without complications; E87.6 Hypokalemia; I48.91 Unspecified atrial fibrillation; M79.7 Fibromyalgia; I48.0 Paroxysmal atrial fibrillation; E86.0 Dehydration; K51.90 Ulcerative colitis, unspecified, without complications; M06.9 Rheumatoid arthritis, unspecified; Z20.822 Contact with and (suspected) exposure to COVID-19; F43.10 Post-traumatic stress disorder, unspecified; E83.39 Other disorders of phosphorus metabolism; E78.00 Pure hypercholesterolemia, unspecified; I10 Essential (primary) hypertension; K21.9 Gastro-esophageal reflux disease without esophagitis; F41.9 Anxiety disorder, unspecified; F31.9 Bipolar disorder, unspecified; Z79.899 Other long term (current) drug therapy; G89.29 Other chronic pain; R10.9 Unspecified abdominal pain; M67.471 Ganglion, right ankle and foot; M06.871 Other specified rheumatoid arthritis, right ankle and foot; R11.0 Nausea; R60.9 Edema, unspecified; F17.210 Nicotine dependence, cigarettes, uncomplicated; M25.571 Pain in right ankle and joints of right foot; K44.9 Diaphragmatic hernia without obstruction or gangrene; M19.90 Unspecified osteoarthritis, unspecified site; E66.9 Obesity, unspecified; M25.531 Pain in right wrist; Z88.5 Allergy status to narcotic agent; Z88.6 Allergy status to analgesic agent; Z88.1 Allergy status to other antibiotic agents; Z88.8 Allergy status to other drugs, medicaments and biological substances; Z90.49 Acquired absence of other specified parts of digestive tract; Z90.710 Acquired absence of both cervix and uterus; Z68.30 Body mass index [BMI] 30.0-30.9, adult; Z86.19 Personal history of other infectious and parasitic diseases
CPT/HCPCS: 36415 ×3; 80048; 80053 ×3; 83690; 83735 ×2; 84100 ×2; 84550; 85025 ×3; 96365; 96366; 96375; 99285; A9270 ×7; C9113 ×2; J1170 ×6; J2270 ×4; J2405 ×5; J3480 ×2; J7030 ×4; J7120 ×2; U0002; 71045; 71045-26; 73100-26-RT; 73100-RT; 73600-26-RT; 73600-RT; 76881-26-RT; 76881-RT; 84132; 84484; 93971-26-RT; 93971-RT; 96376; 97110-GP; 97116-GP; 97162-GP; 97530-GP; 99218; 99224; 99231; 99232; 99238; 99284; G0378; J1650; J3490

== ENCOUNTER 2021-11-01 20:53 | Emergency (ER) | payer MEDICARE, MEDICAID ==
[2021-11-01] MEDS ORDERED: Sodium Chloride 0.9% 10 ML Syringe FLUSH PRN (20:58)
[2021-11-01] MEDS ORDERED: Sodium Chloride 0.9% 2.5 ML Syringe FLUSH PRN (20:58)
[2021-11-01 21:41] VITALS: BP 159/98; PULSE 77
[2021-11-01 21:43] LABS: CARBON DIOXIDE,CO2 15.7 mmol/L (21.0-32.0); POTASSIUM,K 4.2 mmol/L (3.5-5.1)
[2021-11-01] MEDS ORDERED: Sodium Chloride 0.9% 1,000 ML IV ONE (21:50)
[2021-11-01] MEDS ORDERED: Iopamidol 755 MG/ML 500 ML Multipack Bottle IVPUSH STA (23:37)
[2021-11-01] MEDS ORDERED: Acetaminophen 500 MG Tab PO ONE (23:56)
== END 2021-11-02 00:16 | disposition left against medical advice (07) ==
LOC: MW.ED 20:53
DX: R07.9 Chest pain, unspecified (principal); K21.9 Gastro-esophageal reflux disease without esophagitis; I10 Essential (primary) hypertension; E66.9 Obesity, unspecified; Z68.31 Body mass index [BMI] 31.0-31.9, adult; Z90.49 Acquired absence of other specified parts of digestive tract; Z90.710 Acquired absence of both cervix and uterus; Z79.899 Other long term (current) drug therapy; Z79.82 Long term (current) use of aspirin; Z88.6 Allergy status to analgesic agent; Z88.8 Allergy status to other drugs, medicaments and biological substances; Z88.1 Allergy status to other antibiotic agents; Z88.5 Allergy status to narcotic agent
CPT/HCPCS: 36415; 71045; 74177; 80053; 83605; 83690; 84484; 85025; 93005; 99285; A9270; J3490; J7030; Q9967; 36410

== ENCOUNTER 2021-11-03 15:58 | Emergency (ER) | payer MEDICARE, MEDICAID ==
[2021-11-03] MEDS ORDERED: Haloperidol Lactate 5 MG/ML SDV IM ONE (16:26)
[2021-11-03 17:03] VITALS: BP 122/80; PULSE 80
== END 2021-11-03 17:10 | disposition home or self-care (01) ==
LOC: MW.ED 15:58
DX: F41.9 Anxiety disorder, unspecified (principal); G89.29 Other chronic pain; K21.9 Gastro-esophageal reflux disease without esophagitis; I10 Essential (primary) hypertension; E66.9 Obesity, unspecified; Z68.29 Body mass index [BMI] 29.0-29.9, adult; Z90.49 Acquired absence of other specified parts of digestive tract; Z90.710 Acquired absence of both cervix and uterus; Z88.6 Allergy status to analgesic agent; Z88.8 Allergy status to other drugs, medicaments and biological substances; Z88.1 Allergy status to other antibiotic agents; Z88.5 Allergy status to narcotic agent; Z79.899 Other long term (current) drug therapy; Z79.82 Long term (current) use of aspirin
CPT/HCPCS: 96372; 99283; J1630

== ENCOUNTER 2021-11-06 17:56 | Emergency (ER) | payer MEDICARE, MEDICAID ==
[2021-11-06] MEDS ORDERED: Ondansetron 4 MG/2 ML SDV IVPUSH ONE (19:44)
[2021-11-06] MEDS ORDERED: Morphine 4 MG/ML VIAL IVPUSH ONE (19:44)
[2021-11-06 20:27] LABS: CARBON DIOXIDE,CO2 16.6 mmol/L (21.0-32.0); POTASSIUM,K 3.9 mmol/L (3.5-5.1)
[2021-11-06] MEDS ORDERED: Sodium Chloride 0.9% 1,000 ML IV ONE (20:39)
[2021-11-06 20:49] VITALS: BP 104/69
[2021-11-06 22:31] VITALS: PULSE 69
== END 2021-11-06 22:20 | disposition home or self-care (01) ==
LOC: MW.ED 17:56
DX: R07.2 Precordial pain (principal); I48.91 Unspecified atrial fibrillation; E78.00 Pure hypercholesterolemia, unspecified; I10 Essential (primary) hypertension; E66.9 Obesity, unspecified; Z68.30 Body mass index [BMI] 30.0-30.9, adult; Z88.6 Allergy status to analgesic agent; Z88.1 Allergy status to other antibiotic agents; Z88.8 Allergy status to other drugs, medicaments and biological substances; Z79.82 Long term (current) use of aspirin; Z79.899 Other long term (current) drug therapy
CPT/HCPCS: 36415; 71045; 80053; 82803; 83690; 83735; 84484; 85025; 93005; 96374; 96375; 99285; J2270; J2405; J7030; 93010; 99284

== ENCOUNTER 2021-11-07 21:40 | Emergency (ER) | payer MEDICARE, MEDICAID ==
[2021-11-07] MEDS ORDERED: Haloperidol Lactate 5 MG/ML SDV IM ONE (21:54)
[2021-11-07] MEDS ORDERED: LORazepam 2 MG/ML SDV IM ONE (21:54)
[2021-11-07] MEDS ORDERED: Alum Hydro/Mag Hydro/Simeth XS 15 ML, Lidocaine 2% 5 ML PO ONE ×2 (22:14)
[2021-11-07 22:44] VITALS: BP 108/63; PULSE 88
== END 2021-11-07 22:39 | disposition home or self-care (01) ==
LOC: MW.ED 21:40
DX: G25.81 Restless legs syndrome (principal); F41.9 Anxiety disorder, unspecified; K21.9 Gastro-esophageal reflux disease without esophagitis; I10 Essential (primary) hypertension; E66.9 Obesity, unspecified; Z68.30 Body mass index [BMI] 30.0-30.9, adult; Z90.49 Acquired absence of other specified parts of digestive tract; Z79.899 Other long term (current) drug therapy; Z79.82 Long term (current) use of aspirin; Z88.6 Allergy status to analgesic agent; Z88.8 Allergy status to other drugs, medicaments and biological substances; Z88.1 Allergy status to other antibiotic agents; Z88.5 Allergy status to narcotic agent
CPT/HCPCS: 96372; 99283; A9270; J1630; J2060

== ENCOUNTER 2021-11-12 11:32 | Emergency (ER) | payer MEDICARE, MEDICAID ==
[2021-11-12] MEDS ORDERED: LORazepam 1 MG Tab PO ONE (12:06)
[2021-11-12 12:47] VITALS: BP 112/79; PULSE 73
== END 2021-11-12 12:47 | disposition home or self-care (01) ==
LOC: MW.ED 11:32
DX: F41.9 Anxiety disorder, unspecified (principal); K21.9 Gastro-esophageal reflux disease without esophagitis; I48.91 Unspecified atrial fibrillation; I10 Essential (primary) hypertension; M19.90 Unspecified osteoarthritis, unspecified site; Z79.82 Long term (current) use of aspirin; Z79.899 Other long term (current) drug therapy; Z88.1 Allergy status to other antibiotic agents; Z88.8 Allergy status to other drugs, medicaments and biological substances; Z88.6 Allergy status to analgesic agent
CPT/HCPCS: 99283; A9270; 99282

== ENCOUNTER 2021-11-13 15:34 | Emergency (ER) | payer MEDICARE, MEDICAID ==
[2021-11-13 17:04] LABS: ACETAMINOPHEN <2.0 ug/mL; BLOOD UREA NITROGEN,BUN 19 mg/dL (7.0-18.0); CARBON DIOXIDE,CO2 14.5 mmol/L (21.0-32.0); CHLORIDE,CL 111 mmol/L (98-107); GLUCOSE RANDOM 110 mg/dL (74-106); POTASSIUM,K 3.6 mmol/L (3.5-5.1); SODIUM,NA 142 mmol/L (136-145)
[2021-11-13] MEDS ORDERED: LORazepam 1 MG Tab PO ONE (19:58)
[2021-11-13 22:36] VITALS: BP 130/90; PULSE 82
== END 2021-11-13 20:30 ==
LOC: MW.ED 15:34
DX: F32.A Depression, unspecified (principal); F19.90 Other psychoactive substance use, unspecified, uncomplicated; I48.91 Unspecified atrial fibrillation; E78.00 Pure hypercholesterolemia, unspecified; I10 Essential (primary) hypertension; K21.9 Gastro-esophageal reflux disease without esophagitis; E66.9 Obesity, unspecified; Z68.29 Body mass index [BMI] 29.0-29.9, adult; Z88.6 Allergy status to analgesic agent; Z88.1 Allergy status to other antibiotic agents; Z88.8 Allergy status to other drugs, medicaments and biological substances; Z79.899 Other long term (current) drug therapy; Z20.822 Contact with and (suspected) exposure to COVID-19
CPT/HCPCS: 36415; 80053; 80143; 80179; 80305; 80307; 81001; 81025; 85025; 87086; 99284; A9270; U0002

== ENCOUNTER 2021-11-16 11:27 | Emergency (ER) | payer MEDICARE, MEDICAID ==
[2021-11-16 12:09] VITALS: PULSE 69
[2021-11-16 13:22] VITALS: BP 167/95
== END 2021-11-16 13:22 | disposition home or self-care (01) ==
LOC: MW.ED 11:27
DX: I80.01 Phlebitis and thrombophlebitis of superficial vessels of right lower extremity (principal); I48.91 Unspecified atrial fibrillation; E78.00 Pure hypercholesterolemia, unspecified; I10 Essential (primary) hypertension; K21.9 Gastro-esophageal reflux disease without esophagitis; E66.9 Obesity, unspecified; Z88.1 Allergy status to other antibiotic agents; Z88.6 Allergy status to analgesic agent; Z88.8 Allergy status to other drugs, medicaments and biological substances; Z79.899 Other long term (current) drug therapy; Z79.82 Long term (current) use of aspirin; Z68.29 Body mass index [BMI] 29.0-29.9, adult
CPT/HCPCS: 73610-26-RT; 73610-RT; 99283-25

== ENCOUNTER 2021-12-31 16:53 | Emergency (ER) | payer MEDICARE, MEDICAID ==
[2021-12-31 18:59] VITALS: BP 168/115; PULSE 79
== END 2021-12-31 18:49 | disposition home or self-care (01) ==
LOC: MW.ED 16:53
DX: L03.115 Cellulitis of right lower limb (principal); K21.9 Gastro-esophageal reflux disease without esophagitis; I10 Essential (primary) hypertension; F17.210 Nicotine dependence, cigarettes, uncomplicated; E66.9 Obesity, unspecified; Z68.30 Body mass index [BMI] 30.0-30.9, adult; Z90.49 Acquired absence of other specified parts of digestive tract; Z90.710 Acquired absence of both cervix and uterus; Z79.899 Other long term (current) drug therapy; Z79.82 Long term (current) use of aspirin; Z88.1 Allergy status to other antibiotic agents; Z88.5 Allergy status to narcotic agent; Z88.8 Allergy status to other drugs, medicaments and biological substances
CPT/HCPCS: 99283

== ENCOUNTER 2022-01-19 14:27 | Emergency (ER) | payer MEDICARE, MEDICAID ==
[2022-01-19] MEDS ORDERED: Sodium Chloride 0.9% 10 ML Syringe FLUSH PRN (15:06)
[2022-01-19] MEDS ORDERED: Sodium Chloride 0.9% 2.5 ML Syringe FLUSH PRN (15:06)
[2022-01-19 16:12] LABS: CARBON DIOXIDE,CO2 18.9 mmol/L (21.0-32.0); POTASSIUM,K 3.6 mmol/L (3.5-5.1)
[2022-01-19] MEDS ORDERED: Morphine 4 MG/ML VIAL IVPUSH ONE (17:43)
[2022-01-19 18:02] VITALS: BP 187/125; PULSE 79
[2022-01-19] MEDS ORDERED: Iopamidol 755 MG/ML 500 ML Multipack Bottle IVPUSH STA (18:20)
== END 2022-01-19 18:15 | disposition home or self-care (01) ==
LOC: MW.ED 14:27
DX: R10.12 Left upper quadrant pain (principal); I48.91 Unspecified atrial fibrillation; E78.00 Pure hypercholesterolemia, unspecified; I10 Essential (primary) hypertension; K21.9 Gastro-esophageal reflux disease without esophagitis; E66.9 Obesity, unspecified; Z68.30 Body mass index [BMI] 30.0-30.9, adult; Z88.5 Allergy status to narcotic agent; Z88.6 Allergy status to analgesic agent; Z88.1 Allergy status to other antibiotic agents; Z79.899 Other long term (current) drug therapy; Z79.82 Long term (current) use of aspirin; Z87.19 Personal history of other diseases of the digestive system
CPT/HCPCS: 36415; 74177; 80053; 83690; 85025; 96374; 99284; J2270; J3490; Q9967

== ENCOUNTER 2022-01-27 01:16 | Emergency (ER) | payer MEDICARE, MEDICAID ==
[2022-01-27 01:38] VITALS: BP 103/68; PULSE 81
[2022-01-27 02:17] LABS: CORONAVIRUS COVID-19 NAA NEGATIVE (NEGATIVE); INFLUENZA A NAA NEGATIVE (NEGATIVE); INFLUENZA B NAA NEGATIVE (NEGATIVE)
[2022-01-27 02:31] LABS: CARBON DIOXIDE,CO2 15.8 mmol/L (21.0-32.0); POTASSIUM,K 3.1 mmol/L (3.5-5.1)
[2022-01-27] MEDS ORDERED: Acetaminophen 500 MG Tab PO ONE (02:38)
== END 2022-01-27 02:58 | disposition left against medical advice (07) ==
LOC: MW.ED 01:16
DX: M25.50 Pain in unspecified joint (principal); I48.91 Unspecified atrial fibrillation; E78.00 Pure hypercholesterolemia, unspecified; I10 Essential (primary) hypertension; K21.9 Gastro-esophageal reflux disease without esophagitis; E66.9 Obesity, unspecified; Z68.30 Body mass index [BMI] 30.0-30.9, adult; Z88.6 Allergy status to analgesic agent; Z88.8 Allergy status to other drugs, medicaments and biological substances; Z79.82 Long term (current) use of aspirin; Z79.899 Other long term (current) drug therapy; Z20.822 Contact with and (suspected) exposure to COVID-19
CPT/HCPCS: 0240U; 36415; 71045; 80053; 83690; 84484; 85025; 93005; 99284; 93010; 99283

== ENCOUNTER 2022-02-06 04:40 | Inpatient (IN) | payer MEDICARE, MEDICAID ==
[2022-02-06] MEDS ORDERED: Ondansetron 4 MG Tab.DIS PO ONE (04:51)
[2022-02-06] MEDS ORDERED: Alum Hydro/Mag Hydro/Simeth XS 15 ML, Lidocaine 2% 5 ML PO ONE ×2 (04:52)
[2022-02-06 05:25] LABS: CARBON DIOXIDE,CO2 14.2 mmol/L (21.0-32.0); POTASSIUM,K 3.7 mmol/L (3.5-5.1)
[2022-02-06] MEDS ORDERED: Morphine 4 MG/ML VIAL IVPUSH ONE (05:34)
[2022-02-06] MEDS ORDERED: Iopamidol 755 MG/ML 500 ML Multipack Bottle IVPUSH STA (06:11)
[2022-02-06] MEDS ORDERED: Sodium Chloride 0.9% 1,000 ML IV ONE (06:37)
[2022-02-06] MEDS ORDERED: HYDROmorphone 1 MG/ML Syringe IVPUSH ONE (06:39)
[2022-02-06] MEDS ORDERED: Sodium Chloride 0.9% 10 ML Syringe FLUSH PRN (07:49)
[2022-02-06] MEDS ORDERED: Sodium Chloride 0.9% 2.5 ML Syringe FLUSH PRN (07:49)
[2022-02-06] MEDS ORDERED: LORazepam 2 MG/ML SDV IVPUSH ONE (08:14)
[2022-02-06] MEDS: Lactated Ringers 1,000 ML IV SCH ×6 (08:21→22:20)
[2022-02-06] MEDS: Heparin Sodium 5,000 Units/ML Vial SUBCUT SCH ×2 (08:48→16:10)
[2022-02-06] MEDS: Pantoprazole 40 MG in Sodium Chloride 0.9% 10 ML IVPUSH SCH (08:48)
[2022-02-06] MEDS: HYDROmorphone 1 MG/ML Syringe IVPUSH PRN ×7 (09:19→22:45)
[2022-02-06 13:27] LABS: CARBON DIOXIDE,CO2 17.1 mmol/L (21.0-32.0); POTASSIUM,K 3.6 mmol/L (3.5-5.1)
[2022-02-06] MEDS: Metoprolol Tartrate 25 MG Tab PO SCH ×2 (13:27→20:38)
[2022-02-06] MEDS: Ondansetron 4 MG/2 ML SDV IVPUSH PRN (16:10)
[2022-02-06] MEDS: Promethazine 25 MG/ML SDV IM PRN (20:51)
[2022-02-06] MEDS: LORazepam 2 MG/ML SDV IVPUSH PRN (21:46)
[2022-02-07] MEDS: Heparin Sodium 5,000 Units/ML Vial SUBCUT SCH ×3 (00:06→16:28)
[2022-02-07] MEDS: HYDROmorphone 1 MG/ML Syringe IVPUSH PRN ×10 (00:45→20:46)
[2022-02-07] MEDS: Ondansetron 4 MG/2 ML SDV IVPUSH PRN ×2 (02:57→07:39)
[2022-02-07] MEDS: Lactated Ringers 1,000 ML IV SCH ×4 (04:13→19:01)
[2022-02-07 06:37] LABS: CARBON DIOXIDE,CO2 19.2 mmol/L (21.0-32.0); POTASSIUM,K 3.2 mmol/L (3.5-5.1)
[2022-02-07] MEDS: Pantoprazole 40 MG in Sodium Chloride 0.9% 10 ML IVPUSH SCH (07:52)
[2022-02-07] MEDS: Metoprolol Tartrate 25 MG Tab PO SCH ×2 (08:02→20:45)
[2022-02-07] MEDS ORDERED: Sodium Chloride 0.9% 1,000 ML IV SCH (10:30)
[2022-02-07] MEDS: Nicotine 7 MG/24 Hr Patch TRDERM SCH (12:22)
[2022-02-07] MEDS: Promethazine 25 MG/ML SDV IM PRN (12:24)
[2022-02-08] MEDS: Lactated Ringers 1,000 ML IV SCH ×6 (00:56→20:00)
[2022-02-08] MEDS: Heparin Sodium 5,000 Units/ML Vial SUBCUT SCH ×3 (00:56→14:59)
[2022-02-08] MEDS: LORazepam 2 MG/ML SDV IVPUSH PRN (01:01)
[2022-02-08] MEDS: HYDROmorphone 1 MG/ML Syringe IVPUSH PRN ×8 (01:02→21:40)
[2022-02-08] MEDS: Metoprolol Tartrate 25 MG Tab PO SCH ×2 (08:38→21:37)
[2022-02-08] MEDS: Pantoprazole 40 MG in Sodium Chloride 0.9% 10 ML IVPUSH SCH (08:40)
[2022-02-08 09:09] LABS: CARBON DIOXIDE,CO2 18.2 mmol/L (21.0-32.0); POTASSIUM,K 3.1 mmol/L (3.5-5.1)
[2022-02-08] MEDS: Nicotine 7 MG/24 Hr Patch TRDERM SCH (09:09)
[2022-02-08] MEDS ORDERED: Lactated Ringers 1,000 ML IV ONE (09:58)
[2022-02-08] MEDS ORDERED: Iopamidol 755 MG/ML 500 ML Multipack Bottle IVPUSH STA (11:26)
[2022-02-08] MEDS ORDERED: D5%-0.9% NaCl w/ KCl 40 meq 1,000 ML IV ONE (13:15)
[2022-02-08] MEDS ORDERED: Magnesium Oxide 400 MG Tab PO ONE (20:49)
[2022-02-09] MEDS: Heparin Sodium 5,000 Units/ML Vial SUBCUT SCH ×4 (00:06→23:07)
[2022-02-09] MEDS: HYDROmorphone 1 MG/ML Syringe IVPUSH PRN ×5 (00:07→12:56)
[2022-02-09] MEDS: Lactated Ringers 1,000 ML IV SCH ×5 (01:22→20:41)
[2022-02-09] MEDS: LORazepam 2 MG/ML SDV IVPUSH PRN ×2 (02:43→23:04)
[2022-02-09 08:10] LABS: POTASSIUM,K 2.8 mmol/L (3.5-5.1)
[2022-02-09] MEDS: Pantoprazole 40 MG in Sodium Chloride 0.9% 10 ML IVPUSH SCH (08:35)
[2022-02-09] MEDS: Nicotine 7 MG/24 Hr Patch TRDERM SCH (08:36)
[2022-02-09] MEDS: Metoprolol Tartrate 25 MG Tab PO SCH ×2 (08:36→20:28)
[2022-02-09] MEDS ORDERED: LACTATED RINGERS IV ONE (10:15)
[2022-02-09] MEDS ORDERED: POTASSIUM ACETATE IV ONE (10:15)
[2022-02-09] MEDS ORDERED: Lactated Ringers 1,000 ML IV ONE (10:30)
[2022-02-09] MEDS: Potassium Chloride 100 ML IV SCH ×3 (11:05→18:39)
[2022-02-09] MEDS ORDERED: oxyCODONE 5 MG Tab PO PRN (15:40)
[2022-02-09] MEDS ORDERED: Potassium Chloride 20 MEQ Tab.ER PO ONE (16:36)
[2022-02-09] MEDS: Morphine 2 MG/ML SYRINGE IVPUSH PRN (20:30)
[2022-02-09] MEDS ORDERED: Diltiazem 25 MG/5 ML SDV IVPUSH ONE ×2 (22:51→23:48)
[2022-02-10] MEDS: Morphine 2 MG/ML SYRINGE IVPUSH PRN (00:37)
[2022-02-10] MEDS: Ondansetron 4 MG/2 ML SDV IVPUSH PRN (00:37)
[2022-02-10] MEDS ORDERED: Metoprolol Tartrate 5 MG/5 ML SDV IVPUSH ONE (01:32)
[2022-02-10] MEDS: Lactated Ringers 1,000 ML IV SCH (02:10)
[2022-02-10] MEDS ORDERED: Metoprolol Tartrate 50 MG Tab PO ONE (02:39)
[2022-02-10] MEDS: HYDROmorphone 1 MG/ML Syringe IVPUSH PRN ×3 (03:03→09:23)
[2022-02-10] MEDS ORDERED: Lactated Ringers 1,000 ML IV SCH (04:00)
[2022-02-10 07:09] LABS: CARBON DIOXIDE,CO2 18.9 mmol/L (21.0-32.0); POTASSIUM,K 2.9 mmol/L (3.5-5.1)
[2022-02-10] MEDS ORDERED: NS with KCl 40mEq 1,000 ML IV SCH (08:00)
[2022-02-10] MEDS ORDERED: Potassium Phosphates 40 MMOLE in Sodium Chloride 0.9% 500 ML IV ONE (08:15)
[2022-02-10] MEDS: Heparin Sodium 5,000 Units/ML Vial SUBCUT SCH ×3 (08:48→23:09)
[2022-02-10] MEDS: Pantoprazole 40 MG in Sodium Chloride 0.9% 10 ML IVPUSH SCH (08:49)
[2022-02-10] MEDS: Metoprolol Tartrate 25 MG Tab PO SCH ×2 (08:49→20:45)
[2022-02-10] MEDS: Nicotine 7 MG/24 Hr Patch TRDERM SCH (09:02)
[2022-02-10] MEDS: Lisinopril 10 MG Tab PO SCH (12:21)
[2022-02-10] MEDS: Sodium Chloride 0.9% 1,000 ML IV SCH (12:25)
[2022-02-10] MEDS: oxyCODONE 5 MG Tab PO PRN ×2 (13:21→20:43)
[2022-02-10] MEDS ORDERED: Potassium Chloride 20 MEQ Tab.ER PO ONE (14:20)
[2022-02-10] MEDS ORDERED: Acetaminophen 500 MG Tab PO PRN (17:52)
[2022-02-10 18:51] LABS: CARBON DIOXIDE,CO2 21.2 mmol/L (21.0-32.0); POTASSIUM,K 3.3 mmol/L (3.5-5.1)
[2022-02-10] MEDS: LORazepam 2 MG/ML SDV IVPUSH PRN (20:53)
[2022-02-11] MEDS: Sodium Chloride 0.9% 1,000 ML IV SCH (02:16)
[2022-02-11] MEDS: oxyCODONE 5 MG Tab PO PRN ×2 (03:16→09:22)
[2022-02-11 07:23] LABS: CARBON DIOXIDE,CO2 18.2 mmol/L (21.0-32.0); POTASSIUM,K 3.4 mmol/L (3.5-5.1)
[2022-02-11] MEDS ORDERED: Magnesium Sulfate/Water 2 GM in Premix Bag 1 BAG IV ONE (07:56)
[2022-02-11] MEDS ORDERED: Potassium Chloride 20 MEQ Tab.ER PO ONE (07:56)
[2022-02-11 08:45] VITALS: BP 148/87; PULSE 96
[2022-02-11] MEDS: Pantoprazole 40 MG in Sodium Chloride 0.9% 10 ML IVPUSH SCH (08:47)
[2022-02-11] MEDS: Phosphorus #1 250 MG Tab PO SCH ×2 (08:48→11:12)
[2022-02-11] MEDS: Lisinopril 10 MG Tab PO SCH (08:50)
[2022-02-11] MEDS: Heparin Sodium 5,000 Units/ML Vial SUBCUT SCH (09:00)
[2022-02-11] MEDS: Metoprolol Tartrate 25 MG Tab PO SCH (09:01)
[2022-02-11] MEDS: Nicotine 7 MG/24 Hr Patch TRDERM SCH (09:10)
== END 2022-02-11 14:30 | disposition home or self-care (01) | DRG 440 ==
LOC: MW.ED 04:40 → MW.MS 06:40
PROVIDERS: ADMIT Internal Medicine; ATTEND Internal Medicine
DX: K85.90 Acute pancreatitis without necrosis or infection, unspecified (principal); I48.91 Unspecified atrial fibrillation; E78.00 Pure hypercholesterolemia, unspecified; K85.20 Alcohol induced acute pancreatitis without necrosis or infection; I10 Essential (primary) hypertension; K50.90 Crohn's disease, unspecified, without complications; M19.90 Unspecified osteoarthritis, unspecified site; M06.9 Rheumatoid arthritis, unspecified; M79.7 Fibromyalgia; F41.9 Anxiety disorder, unspecified; Z20.822 Contact with and (suspected) exposure to COVID-19; F43.10 Post-traumatic stress disorder, unspecified; R74.01 Elevation of levels of liver transaminase levels; Z88.1 Allergy status to other antibiotic agents; Z88.8 Allergy status to other drugs, medicaments and biological substances; F11.90 Opioid use, unspecified, uncomplicated; I48.0 Paroxysmal atrial fibrillation; F43.12 Post-traumatic stress disorder, chronic; E78.5 Hyperlipidemia, unspecified; F31.9 Bipolar disorder, unspecified; F17.210 Nicotine dependence, cigarettes, uncomplicated; E66.9 Obesity, unspecified; K21.9 Gastro-esophageal reflux disease without esophagitis; M1A.9XX0 Chronic gout, unspecified, without tophus (tophi); E87.6 Hypokalemia; E83.39 Other disorders of phosphorus metabolism; Z68.30 Body mass index [BMI] 30.0-30.9, adult; Z79.01 Long term (current) use of anticoagulants; Z87.19 Personal history of other diseases of the digestive system; Z79.899 Other long term (current) drug therapy; Z79.82 Long term (current) use of aspirin; Z79.1 Long term (current) use of non-steroidal anti-inflammatories (NSAID); Z98.890 Other specified postprocedural states; Z90.89 Acquired absence of other organs; Z87.81 Personal history of (healed) traumatic fracture; Z90.49 Acquired absence of other specified parts of digestive tract; Z90.710 Acquired absence of both cervix and uterus; Z90.722 Acquired absence of ovaries, bilateral
CPT/HCPCS: 36415; 71045; 74177; 80053; 80061; 83690; 83735; 84484; 85025; 93005; 96374; 99285; A9270 ×3; J2270; Q9967; U0002; 36410; 36556; 74178; 74178-26; 74181; 74181-26; 76705; 76705-26; 80048; 81001; 83605; 84100; 96361; 96375; C9113; J1170; J1644; J2060; J2405; J2550; J3475; J3480; J3490; J7030; J7040; J7120

== ENCOUNTER 2022-02-12 17:38 | Emergency (ER) | payer MEDICARE, MEDICAID | END 2022-02-12 18:21 | disposition left against medical advice (07) | LOC: MW.ED 17:38 | DX: Z53.21 Procedure and treatment not carried out due to patient leaving prior to being seen by health care provider (principal) ==

== ENCOUNTER 2022-02-17 06:02 | Emergency (ER) | payer MEDICARE, MEDICAID ==
[2022-02-17] MEDS ORDERED: Sodium Chloride 0.9% 1,000 ML IV ONE (06:30)
[2022-02-17] MEDS: Sodium Chloride 0.9% 2.5 ML Syringe FLUSH PRN ×2 (06:38→07:43)
[2022-02-17] MEDS: Sodium Chloride 0.9% 10 ML Syringe FLUSH PRN ×2 (06:38→07:43)
[2022-02-17] MEDS ORDERED: Ondansetron 4 MG/2 ML SDV IVPUSH ONE (07:19)
[2022-02-17] MEDS ORDERED: HYDROmorphone 1 MG/ML Syringe IVPUSH ONE (07:19)
[2022-02-17 08:01] LABS: CARBON DIOXIDE,CO2 16.2 mmol/L (21.0-32.0)
[2022-02-17] MEDS ORDERED: Potassium Chloride 10% 20 MEQ/15 ML Soln 30 ML UD Cup PO ONE (08:42)
[2022-02-17 19:20] VITALS: BP 159/93; PULSE 80
== END 2022-02-17 09:18 | disposition home or self-care (01) ==
LOC: MW.ED 06:02
DX: R10.13 Epigastric pain (principal); R74.01 Elevation of levels of liver transaminase levels; K21.9 Gastro-esophageal reflux disease without esophagitis; I10 Essential (primary) hypertension; E66.9 Obesity, unspecified; Z68.30 Body mass index [BMI] 30.0-30.9, adult; Z88.1 Allergy status to other antibiotic agents; Z88.8 Allergy status to other drugs, medicaments and biological substances; Z88.5 Allergy status to narcotic agent; Z79.899 Other long term (current) drug therapy; Z79.82 Long term (current) use of aspirin; Z90.49 Acquired absence of other specified parts of digestive tract; Z90.710 Acquired absence of both cervix and uterus
CPT/HCPCS: 36415; 80053; 81001; 83690; 85025; 96361; 96374; 96375; 99284; A9270; J1170; J2405; J3490; J7030

== ENCOUNTER 2022-02-24 17:38 | Emergency (ER) | payer MEDICARE, MEDICAID ==
[2022-02-24] MEDS ORDERED: HYDROmorphone 1 MG/ML Syringe IM ONE ×2 (18:17→19:53)
[2022-02-24] MEDS ORDERED: Ondansetron 4 MG/2 ML SDV IVPUSH ONE (18:17)
[2022-02-24] MEDS ORDERED: Ondansetron 4 MG Tab.DIS PO ONE (18:33)
[2022-02-24 18:56] LABS: CARBON DIOXIDE,CO2 19.5 mmol/L (21.0-32.0); POTASSIUM,K 4.3 mmol/L (3.5-5.1)
[2022-02-24 20:09] VITALS: BP 152/99; PULSE 64
== END 2022-02-24 20:12 | disposition home or self-care (01) ==
LOC: MW.ED 17:38
DX: R10.13 Epigastric pain (principal); R11.0 Nausea; I10 Essential (primary) hypertension; E78.00 Pure hypercholesterolemia, unspecified; E66.9 Obesity, unspecified; F17.210 Nicotine dependence, cigarettes, uncomplicated; Z88.5 Allergy status to narcotic agent; Z88.6 Allergy status to analgesic agent; Z79.82 Long term (current) use of aspirin; Z79.899 Other long term (current) drug therapy
CPT/HCPCS: 36415; 80053; 83690; 85025; 96372; 99284; A9270; J1170

== ENCOUNTER 2022-02-28 21:12 | Emergency (ER) | payer MEDICARE, MEDICAID | END 2022-02-28 23:57 | disposition left against medical advice (07) | LOC: MW.ED 21:12 | DX: Z53.21 Procedure and treatment not carried out due to patient leaving prior to being seen by health care provider (principal) ==

== ENCOUNTER 2022-03-01 02:29 | Emergency (ER) | payer MEDICARE, MEDICAID ==
[2022-03-01] MEDS ORDERED: Ondansetron 4 MG Tab.DIS PO ONE (04:14)
[2022-03-01] MEDS ORDERED: Acetaminophen/oxyCODONE 325-5 MG Tab PO ONE (04:15)
[2022-03-01 06:13] VITALS: BP 153/93; PULSE 70
== END 2022-03-01 06:11 | disposition home or self-care (01) ==
LOC: MW.ED 02:29
DX: R10.12 Left upper quadrant pain (principal); K21.9 Gastro-esophageal reflux disease without esophagitis; I10 Essential (primary) hypertension; E66.9 Obesity, unspecified; Z68.33 Body mass index [BMI] 33.0-33.9, adult; Z79.899 Other long term (current) drug therapy; Z88.1 Allergy status to other antibiotic agents; Z88.8 Allergy status to other drugs, medicaments and biological substances; Z88.5 Allergy status to narcotic agent; Z79.82 Long term (current) use of aspirin; Z90.49 Acquired absence of other specified parts of digestive tract; Z90.710 Acquired absence of both cervix and uterus
CPT/HCPCS: 36415; 80053; 83690; 85025; 99284; A9270; 99283